=== PATIENT | female | born 1940 | race Caucasian/White ===

== ENCOUNTER 2017-11-25 18:04 | Observation (INO) ==
--- NOTE | 2017-11-25 18:53 | Emergency Department Report ---
Psych HPI - General Chief Complaint: Psychiatric Symptoms Stated Complaint: FEELING RAW Source: patient Mode of arrival: EMS Limitations: other (hyperverbal, paranoid) - History of Present Illness HPI Narrative: Pt presents with severe paranoia and hallucinations. PT repeatedly reports people are scanning her bedroom and that her son has a warrant and people are searching for him. Pt is unable to answer basic questions with appropriate answers. Nursing contacted son who states pt has been admitted to [facility] in the past but he does not know "what became of that". He denies her being on any medications and does not know if she has a DPOA. He states pt has been "bad " in regards to "mental" symptoms for the last 5-6 days. Son states everything the pt has been saying is a lie. She does report being outside all day to avoid lenore people trying to get her in the house and has a sunburn to face, arms and right leg Duration: getting worse Prior Hospitalization: Yes - Related Data Home Medications Medication Instructions Recorded Confirmed Vitamin E 400 unit PO DAILY 10/23/17 11/25/17 Allergies Allergy/AdvReac Type Severity Reaction Status Date / Time aspirin Allergy Verified 11/25/17 18:37 Sulfa (Sulfonamide Allergy Verified 11/25/17 18:37 Antibiotics) Review of Systems Limitations: ROS unobtainable due to patient's medical condition PFSH Patient Stated Medical History Other GI Yes: Fatty Liver Hx Incontinence Yes Surgical History: Appendectomy, ovarian cyst removal, tonsillectomy - Social History Smoking status: Current every day smoker Substance use type: does not use Alcohol intake frequency: does not drink Physical Exam - Limitations Limitations: other (paranoia) - General General appearance: alert - Normal Exams: Head:: Normocephalic without trauma Eyes:: Pupils are PERRLA w/ EOMI Chest/Respirations:: Clear all alexander, with good airflow Cardiovascular:: Regular rate and rhythm, without murmur or gallop Abdomen:: Bowel sounds positive, soft, non-tender, non-distended Musculoskeletal:: No tenderness, or deformity noted, good range of motion, all extremities Neurological:: Patient is alert, cranial nerves, motor/sensory/cerebellar, exams w/o gross deficits, to observation - Expanded Skin Exam Distribution: generalized (redness to face and upper extremities and right leg consistent with sunburn) - Expanded Psychiatric Exam Expanded psych exam: Present: poor eye contact, pressured speech, delusional, paranoid, auditory hallucinations, visual hallucinations Psych - MDM Narrative Medical decision making narrative: Pt not eligible for [facility] admit 2/2 lack of DPOA. Manuel Mars contacted and would be willing to admit if pt had DPOA as well. Pt is unable to report if she does have one at this time. She states she must have her phone as that is where all the evidence is to protect herself and her son. Attempts to contact her son have been unsuccessful. Hospitalist contacted for possible admit. Dr Phillips agrees to admit observation. - Differential Diagnosis Likely: acute psychosis, chronic schizophrenia, bipolar disorder, acute anxiety - Lab Data Attestation: I reviewed the patient's lab results. Result diagrams: 11/25/17 18:42 11/25/17 18:42 Disposition Clinical Impression: Acute psychosis Disposition: 02 To [facility] Condition: Stable Prescriptions: No Action Vitamin E 400 unit PO DAILY Referrals: Primary Care,You Choose [Primary Care Provider] - Time of Disposition: 22:46 - Seen By: midlevel
[2017-11-25] MEDS ORDERED: IBUPROFEN 400 MG TABLET PO PRN (23:50)
[2017-11-25] MEDS ORDERED: ACETAMINOPHEN 500 MG TABLET PO PRN (23:51)
[2017-11-25 23:56] VITALS: BMI 30.2
[2017-11-26] MEDS ORDERED: HALOPERIDOL 5 MG/ML INJECTION IVP PRN (00:03)
[2017-11-26] MEDS ORDERED: ONDANSETRON 4 MG/2 ML INJECTION IVP PRN (00:03)
--- NOTE | 2017-11-26 00:07 | History & Physical Report ---
History of Present Illness Date: 11/26/17 Chief complaint: people trying to get her and tell her things HPI: Patient was seen via telemedicine with nursing assistance on 11/25/2017 Ms. Randolph is a 77yo woman with h/o psychiatric disease NOS with the patient not a good historian. She was brought to the ED by her son who is now gone. Per ED staff son stated paranoia with auditory and visual hallucinations for a couple of days and then was outside all day to escape the voices in the house. She recognizes sunburn and no nausea or sob. No other complaints. Speech is clear but content tangential. Review of Systems All systems PM: 10-point ROS was reviewed, no additional remarkable complaints except Past Medical History Surgical History: Appendectomy, ovarian cyst removal, tonsillectomy Family History Updates: parents with no early CAD Family History: As Above - Social History Smoking status: Current every day smoker Substance use type: does not use Alcohol intake frequency: does not drink Medications Home Medications Medication Instructions Recorded Confirmed Type Vitamin E 400 unit PO DAILY 10/23/17 11/25/17 History Allergies Allergy/AdvReac Type Severity Reaction Status Date / Time aspirin Allergy Verified 11/25/17 18:37 Sulfa (Sulfonamide Allergy Verified 11/25/17 18:37 Antibiotics) Exam Vital Signs: Temperature 97.4 F 11/25/17 23:46 Pulse Rate 72 11/25/17 23:46 Respiratory Rate 18 11/25/17 23:46 Blood Pressure 159/80 H 11/25/17 23:46 Pulse Oximetry 95 11/25/17 23:46 Telemetry Rhythm: Sinus Rhythm Height/Weight/BMI: Height 1.6 m Weight 77.4 kg Body Mass Index 30.2 - Constitutional Present: no acute distress - Routine HEENT Exam Head: Present: normocephalic, atraumatic Eye: Present: EOMI - Routine Neck Exam Present: full ROM - Routine Respiratory Exam Present: CTA bilaterally. Absent: accessory muscle use, dyspnea - Routine Cardiovascular Exam Present: RRR, S1, S2, no murmur - Routine Abdominal Exam Present: soft, normoactive bowel sounds - Routine Extremities Exam Absent: cyanosis - Routine Skin Exam Comments: sunburned - Routine Neurological Exam Present: alert, oriented X3, CN II-XII intact - Routine Psychiatric Exam Present: auditory hallucinations, visual hallucinations Comments: pressured speech and tangential Results - Labs CBC & Chem 7: 11/25/17 18:42 11/25/17 18:42 Assessment and Plan (1) Auditory hallucinations Current visit: Yes Status: Acute (2) Visual hallucination Current visit: Yes Status: Acute (3) Acute psychosis Current visit: Yes Status: Acute Assessment and Plan: 1. Acute psychosis with underlying psychiatric disease NOS--obs admit for psych eval as son not available and patient therefore cannot be placed tonight. Prns and supportive care with ibuprofen for sunburn, encourage PO, etc. - Physician Narrative Narrative: Date: 11/26/17 Time: 0001 Hospital Course Summary Disclaimer: The visit summary below is not to be considered part of the above Progress Note.
[2017-11-26] MEDS ORDERED: LORazepam 1 MG TABLET PO PRN (00:12)
--- NOTE | 2017-11-26 09:55 | Neuropsychiatric Consult ---
[facility] Date: 11/26/17 Reason for Consultation: Psychosis Start Time: 11:00 Stop Time: 11:40 Care: >50% of this visit spent in counseling/coordination care. History of Present Illness: Patient is a 77-year-old female who was brought to the [facility] ED by family on 11/24 due to delusional thoughts impacting her functioning. Her son reported at that time that the patient had sat outside her house all day to escape the voices in the house, resulting in a sunburn. He also reported paranoia and AVH "for a couple of days." Patient has a past psychiatric hx with a previous hospitalization at [facility], though details or diagnosis are unclear. Patient says, "I'm anti-med" and endorses having taken only Valium in the past "for a medical condition." On interview, patient is lying in dark room with covers pulled to her chin. She initially speaks in whispers but engages as interview goes on. She is quite perseverative on the people at her house who are torturing her and has difficulty answering questions in a direct manner as she relates it back to feeling persecuted. Patient does not have any insight into paranoia/delusions and is upset with her son and ex- for not believing her that people are watching her house, their voices are coming through the [place], they are making fun of her, etc. She denies suicidality but says, "I understand how teenagers slit their wrists when you have people torturing you like that." She denies HI. Patient is not visibly responding to internal stimuli during interview. Offered inpatient psych stabilization and patient does not feel she has a psychiatric condition or that psychiatric medication would be helpful for her. Psychosis: Delusions, Disorganized speech, Disorganized behavior PFSH Patient Stated Medical History Other GI Yes: Fatty Liver Hx Incontinence Yes Surgical History: Appendectomy, ovarian cyst removal, tonsillectomy Family History Updates: parents with no early CAD - Social History Smoking status: Current every day smoker Substance use type: does not use Alcohol intake frequency: does not drink Housing: other (lives by herself) Review of Systems ROS unobtainable: due to mental status (limited as patient perseverates on delusional content) - Respiratory Respiratory Comments: Complains of pain in lung - Integumentary/Breasts Integumentary: Present: other (sunburn as per HPI) - Psychiatric Psychiatric: Present: as per HPI, abnormal sleep pattern (states she hasn't been sleeping recently), behavioral changes, difficulty concentrating, paranoia , other (cannot rule out AVH). Absent: homicidal ideation Mental Status Exam Vitals: Last Vital Signs Temp 97.1 F 11/26/17 08:00 Pulse 83 11/26/17 08:00 Resp 16 11/26/17 08:00 BP 140/69 H 11/26/17 08:00 Pulse Ox 96 11/26/17 08:00 Height: 1.6 m Weight: 77.1 kg - Mental Status Exam Muscle Strength/Tone: Weak Dressing: Casual Grooming: Disheveled Attitude: Defensive Motor Activity: Normal Eye Contact: Other (Limited) Speech: Normal Volume: Soft Rhythm: Appropriate Rhythm Sensory: Alert Orientation: Oriented to person, Oriented to place Mood: Anxious, Fearful Affect: Fearful Rate of Thoughts: Pressured Thought Organization: Disorganized, Perseverations (on delusional thoughts) Associations: Illogical Abstract Reasoning: Poor abstract reasoning Thought Content: Ruminations, Hopelessness, Helplessness, Paranoia, Somatic Concerns Perception/Psychotic: Psychotic (delusions present, cannot r/o AVH) Language: Naming Intact Fund of Knowledge: Enrique aware current events Memory: Other (difficult to fully assess, suspect some memory impairment) Suicidal Ideation: Other (denies though makes morbid statement as per HPI) Homicidal Ideation: Denies Insight: Impaired Judgement: Impaired - Laboratory Result Diagrams: 11/25/17 18:42 11/25/17 18:42 Laboratory Results - last 24 hr 11/26/17 08:51 Urine Opiates Screen Negative Ur Oxycodone Screen Negative Urine Methadone Screen Negative Ur Propoxyphene Screen Negative Ur Barbiturates Screen Negative U Tricyclic Antidepress Negative Ur Phencyclidine Scrn Negative Ur Amphetamines Screen Negative U Methamphetamines Scrn Negative U Benzodiazepines Scrn Negative Urine Cocaine Screen Negative U Cannabinoids Screen Negative Assessment and Plan (1) Psychosis Qualifiers: Psychosis type: unspecified psychosis type Qualified Code(s): F29 - Unspecified psychosis not due to a substance or known physiological condition Current visit: Yes Status: Acute suspect schizophreniform disorder r/o underlying neurocognitive disorder Patient is a danger to self given paranoid delusions and requires inpatient psychiatric stabilization. Do not let patient leave AMA; file emergency court hold if patient attempts to leave. Attempted to discuss possibility of naming DPOA with patient and she was unable to name any reasonable support. She is ambiguous re: psych hospitalization and adamantly anti-medication. Hospital will likely need to file MHP as she will necessitate involuntary psychiatric care, unless she can name a reasonable DPOA in the interim. Discussed with case management as well as primary team. Please contact me with further questions.
[2017-11-26 12:43] VITALS: TEMP 97.6
--- NOTE | 2017-11-26 13:11 | History & Physical Report ---
History of Present Illness Date: 11/26/17 HPI: Pt admitted per telemedicine physician 11/25. Pt was brought to the hospital after being found outside in the sun, having walked away from her house due to being afraid of what voices were saying to her. She developed a subsequent sunburn. She was brought in by her son. She speaks very tangentially, and I had difficulty getting an accurate summary of what exactly transpired before coming here. However, she was having visual and auditory hallucinations, and hearing a bird in the room currently which she is very concerned about. These have been going on for a couple days. Today she has no further specific complaints, including no N/V/F/C/CP/SOB/abd pain. However, she does point to a large area including her right chest and right abdomen, stating "something is not right in here". Review of Systems All systems PM: 10-point ROS was reviewed, no additional remarkable complaints except - Constitutional Constitutional: Absent: chills, fatigue, fever(s) - EENMT Eyes: Absent: change in vision, diplopia, pain Ears: Absent: ear pain Mouth/Throat: Absent: sore throat - Cardiovascular Cardiovascular: Absent: chest pain, palpitations, syncope, edema Vascular: Absent: pedal edema - Respiratory Respiratory: Absent: cough, dyspnea, wheezing - Gastrointestinal Gastrointestinal: Absent: abdominal pain, diarrhea, hematochezia, melena, nausea , vomiting - Genitourinary Genitourinary: Absent: dysuria, flank pain - Musculoskeletal Musculoskeletal: Absent: arthralgias, limited range of motion, myalgias - Integumentary/Breasts Integumentary: Absent: lesions, rash, jaundice - Neurological Neurological: Absent: abnormal speech, dizziness - Psychiatric Psychiatric: Present: auditory hallucinations, paranoia, visual hallucinations. Absent: depression - Endocrine Endocrine: Absent: palpitations, polyuria - Allergic/Immunologic Allergic/Immunologic: Absent: tongue swelling, throat swelling Past Medical History Medical History Updates: NAFLD Surgical History: Appendectomy, ovarian cyst removal, tonsillectomy Family History: As Above - Social History Smoking status: Current every day smoker (Smoked about 1ppd, unable to tell me for how long.) Substance use type: does not use Alcohol intake frequency: does not drink Does patient use chewing tobacco?: No Medications Home Medications Medication Instructions Recorded Confirmed Type Vitamin E 400 unit PO DAILY 10/23/17 11/25/17 History Allergies Allergy/AdvReac Type Severity Reaction Status Date / Time aspirin Allergy Verified 11/25/17 18:37 Sulfa (Sulfonamide Allergy Verified 11/25/17 18:37 Antibiotics) Exam Vital Signs: Temperature 97.6 F 11/26/17 12:00 Pulse Rate 71 11/26/17 12:00 Respiratory Rate 18 11/26/17 12:00 Blood Pressure 153/69 H 11/26/17 12:00 Pulse Oximetry 95 11/26/17 12:00 Height/Weight/BMI: Height 5 ft 3 in Weight 77.1 kg Body Mass Index 30.2 - Constitutional Present: no acute distress, other (Very tangential in her answers.) - Routine HEENT Exam Head: Present: normocephalic, atraumatic Eye: Present: EOMI, PERRL ENT: Present: mucous membranes moist, oropharynx clear, external ear normal - Routine Neck Exam Present: supple. Absent: lymphadenopathy - Routine Respiratory Exam Present: CTA bilaterally. Absent: wheezes, crackles - Routine Cardiovascular Exam Present: RRR. Absent: murmur, gallop, rubs - Routine Abdominal Exam Present: soft, normoactive bowel sounds, non distended, non tender. Absent: organomegaly - Routine Extremities Exam Present: full ROM, normal capillary refill. Absent: cyanosis, edema - Routine Skin Exam Present: intact, dry. Absent: jaundice, rash - Routine Neurological Exam Present: alert, CN II-XII intact, moving all extremities (5/5 strength in all extremities). Absent: altered mental status - Routine Psychiatric Exam Present: auditory hallucinations (Hearing voices, currently hearing a bird. ), visual hallucinations, paranoid. Absent: normal affect (Very tangential. Currently speech is not very pressured. ), suicidal ideation, homicidal ideation , depressed, anxious Results - Labs CBC & Chem 7: 11/25/17 18:42 11/25/17 18:42 Assessment and Plan (1) Acute psychosis Current visit: Yes Status: Acute (2) Auditory hallucinations Current visit: Yes Status: Acute (3) Visual hallucination Current visit: Yes Status: Acute Assessment and Plan: 1. Acute psychosis with underlying psychiatric disease NOS--obs admit for psych eval as son not available and patient therefore cannot be placed tonight. Prns and supportive care with ibuprofen for sunburn, encourage PO, etc. DVT Prophylaxis: other (Pt ambulatory, in obs. None indicated. ) GI Prophylaxis: other (None indicated. ) Resuscitation Status: Full Code - Time spent with patient Time with patient PN: 25 minutes - Physician Narrative Physician: mk Narrative: Date: 11/26/17 Time: 1306 77yo female with: Acute psychosis: Per prior documentation, pt has underlying psychiatric disease , NOS. Concern for underlying schizophrenia- consulted Dr. Hercules for further input. Unfortunately, pt is fairly adamant about being anti-medication, and thus we are unable to start any anti-psychotics. Per psych, cannot allow pt to leave AMA, and file emergency court hold if pt attempts to leave. Hospital may need to file MPH, given her need for psych care, unless she can name a DPOA. Hx NAFLD: Will add LFTs to blood in lab to assess for transaminitis. FEN: Gen diet. Proph: Pt ambulatory, none indicated. Dispo: Currently pt has no DPOA. May not leave hospital involuntarily as she is a danger to herself at this point. Hospital Course Summary Disclaimer: The visit summary below is not to be considered part of the above Progress Note. Hospital Course: Admitted with psychosis and since she is a danger to herself in her current state, unable to leave hospital voluntarily. Consulted Dr. Hercules, appreciate recs.
[2017-11-26 15:50] VITALS: BP 126/53; PULSE 62; RESP 20; O2SAT 94
== END 2017-11-26 16:47 ==
LOC: EDHOLD 18:04 → ED 18:04 → MED 23:05
PROVIDERS: ADMIT Hospitalist; ATTEND Internal Medicine

== ENCOUNTER 2017-11-26 16:50 | Inpatient (IN) ==
[2017-11-26] MEDS ORDERED: IBUPROFEN 400 MG TABLET PO PRN (18:51)
[2017-11-26] MEDS ORDERED: LORazepam 1 MG TABLET PO PRN (18:51)
[2017-11-26] MEDS ORDERED: HALOPERIDOL 5 MG/ML INJECTION IM PRN (19:00)
[2017-11-26] MEDS ORDERED: HALOPERIDOL 0.5 MG TABLET PO PRN (19:00)
[2017-11-26] MEDS ORDERED: LORazepam 0.5 MG TABLET PO PRN (19:00)
[2017-11-26] MEDS ORDERED: ACETAMINOPHEN 500 MG TABLET PO PRN (19:08)
[2017-11-26] MEDS ORDERED: IBUPROFEN 200 MG TABLET PO PRN (19:15)
[2017-11-26 19:25] VITALS: BMI 30.3
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
--- NOTE | 2017-11-27 09:33 | History & Physical Report ---
History of Present Illness Date: 11/27/17 Chief complaint: Acute psychosis HPI: Patient is a 77-year-old female who was recently admitted acutely to the hospitalist services in 11/25/17 or evaluation of paranoia. Records are reviewed, EMS report from 11/25 was reviewed. Records reports patient called 911 multiple times on 11/25/17. She was evaluated by police officers on multiple occasions. They were concerned that patient had abnormal behavior contacted EMS for medical evaluation as it appeared patient had been outside in the sun extensively. Patient was brought to [facility] emergency room for acute evaluation. she was admitted to the hospitalist services initially and medically cleared. Given her significant psychosis with paranoia and delusions, It was felt that patient required involuntary inpatient care for further evaluation and treatment. Patient was accepted to the [facility] unit and was transferred there yesterday on 11/26/17. It does not appear the patient has a primary care provider however she has been seen at [facility] in the past. EMS record reports she has a hx of "ovarian or uterine cancer". Unable to get an accurate history from patient. Patient is seen this morning for initial medical consultation by the hospitalist services. She is alert sitting on the edge of bed following shower. She states "hello, Are you real, Can I pinch you?" . Patient denies having any pain, she states that she is "numb". She here to have a mild sunburn to her lateral arms. Right lower extremity is noted to be somewhat discolored, which appears to be chronic. Patient continues to speak of "what happened over there, " is unclear if she is referring to home or acute stay at [facility]. That she continues to have people around her and she doesn't know if they're real or not. Review of Systems ROS unobtainable: due to mental status Past Medical History Medical History Updates: NAFLD. Reported by EMS- "Ovarian/Uterine Cancer"- unknown if this is accurate Surgical History: Appendectomy. ovarian cyst removal. tonsillectomy Family History: Unable to Obtain - Social History Smoking status: Current every day smoker Substance use type: does not use Alcohol intake frequency: does not drink Housing: apartment Social history: Resides independently in [place]. It is unknown if patient has a primary care provider. Son- Marino Pérez Medications Home Medications Medication Instructions Recorded Confirmed Type Vitamin E 400 unit PO DAILY 10/23/17 11/26/17 History Acetaminophen [Tylenol] 500 mg PO Q5H PRN tab 11/26/17 11/26/17 Rx Ibuprofen [Motrin] 400 mg PO Q4H PRN tab 11/26/17 11/26/17 Rx LORazepam [Ativan] 1 mg PO Q6H PRN tab 11/26/17 11/26/17 Rx Ondansetron Inj [Zofran] 4 mg IVP Q6H PRN vial 11/26/17 11/26/17 Rx Allergies Allergy/AdvReac Type Severity Reaction Status Date / Time aspirin Allergy Verified 11/25/17 18:37 Sulfa (Sulfonamide Allergy Verified 11/25/17 18:37 Antibiotics) Exam Vital Signs: Temperature 97.0 F 11/26/17 20:32 Pulse Rate 75 11/26/17 21:58 Respiratory Rate 20 11/26/17 21:58 Blood Pressure 133/85 11/26/17 20:32 Pulse Oximetry 99 11/26/17 21:58 Height/Weight/BMI: Height 1.6 m Weight 77.6 kg Body Mass Index 30.3 - Constitutional Present: no acute distress, well nourished, well developed - Routine HEENT Exam Eye: Present: EOMI ENT: Present: mucous membranes moist, dentition normal - Routine Respiratory Exam Present: CTA bilaterally. Absent: wheezes - Routine Cardiovascular Exam Present: RRR, S1, S2. Absent: murmur - Routine Abdominal Exam Present: soft, normoactive bowel sounds, non distended. Absent: tenderness - Routine Extremities Exam Present: full ROM, pulses intact Comments: RLE- chronic discolored. Trace bilateral lower ext edema - Routine Skin Exam Present: dry, warm - Routine Neurological Exam Present: alert, oriented X3, CN II-XII intact - Routine Psychiatric Exam Present: normal affect Assessment and Plan (1) Acute psychosis Current visit: No Status: Acute Assessment and Plan: Impression Psychosis Paranoia NAFLD Tobacco dependence Low normal vitamin B12 level Obesity with BMI 30.3 Plan Agree with involuntary psychiatric admission under the care of Dr. Hecrules for further evaluation and treatment Medical labs from acute stay evaluated and stable. All unremarkable May want to consider CT of brain to rule out underline intracranial disease process Monitor vital signs Tylenol as needed for pain May use lotion topically to sunburn Encourage patient to participate in unit activities and provide a safe environment It does not appear that patient has a PCP. CM and environmental field services technician involved. They have filed petition to [facility] Attorney's Office for involuntary tx. Petition Resuscitation Status: Full Code - Time spent with patient Time with patient PN: 50 minutes - Physician Narrative Physician: Howard Pinedo MD Narrative: Date: 11/27/17 Time: 1939 Have independently interviewed & examined pt. Chart reviewed. Case discussed with my CHANNELING MACHINE OPERATOR. Above care plan developed with my supervision; agree with above. Admitted to [facility] secondary to psychosis and paranoia. Reports she has been 'scanned' in her home. People there are conspiring to make her crazy. Reports is being watched at home and not allowed to leave. Disorganization to thought, but very clear about being scanned. Obtaining accurate ROS from patient is not possible secondary psychosis. Lungs: decreased, no distress CV: regular EXT: +2 edema Plan: Agree with admission of patient to [facility] [place] for inpatient psychiatric treatment. Provide safe supportive environment. Will start oral B12 due to low normal B12 level (worry patient would be resistant to having IM shots ). Psychiatry to manage and adjust psychoactive medications. Medically stable for [facility] floor activity. Hospital Course Summary Disclaimer: The visit summary below is not to be considered part of the above Progress Note. Hospital Course: Impression Psychosis Paranoia NAFLD Tobacco dependence Plan Agree with involuntary psychiatric admission under the care of Dr. Hercules for further evaluation and treatment Medical labs from acute stay evaluated and stable. All unremarkable May want to consider CT of brain to rule out underline intracranial disease process Monitor vital signs Tylenol as needed for pain May use lotion topically to sunburn Encourage patient to participate in unit activities and provide a safe environment It does not appear that patient has a PCP. CM and environmental field services technician involved. They have filed petition to [facility] Attorney's Office for involuntary tx. Petition
--- NOTE | 2017-11-27 11:00 | CT Scan Report ---
Indication: Psychosis PROCEDURE: CT head/brain wo con: Encounter: Initial Comparison: None Technique: Axial CT images through the head were performed without contrast. Iterative Reconstruction dose reducing technique was utilized. FINDINGS: Moderate atrophy. The ventricles are of normal size, shape, and contour for the patient's age. There are scattered areas of low attenuation in the white matter which most likely represent changes from chronic microvascular ischemia. The brainstem, cerebellum, and cerebral hemispheres otherwise have a normal morphology and CT attenuation. There is no evidence of midline displacement. No hemorrhage, signs of acute territorial stroke, mass effect, mass lesions, or edema is evident. The visualized portions of the skull base, midface, and calvarium demonstrate no abnormality. The paranasal sinuses are well aerated and free of significant disease. The tympanic and mastoid cavities appear normal. IMPRESSION: No acute intracranial abnormality or hemorrhage. .
[2017-11-28] MEDS: CYANOCOBALAMIN (B-12) 500mcg TABLET PO SCH (08:32)
--- NOTE | 2017-11-28 12:03 | Neuropsych Progress Note ---
[facility] Subjective Date: 11/28/17 - Sujective/Severity of Illness Medications: Acetaminophen (Tylenol) 500 mg PO Q5H PRN PRN Reason: Discomfort Cyanocobalamin (Vit. B-12) 1,000 mcg PO DAILY SALOME Last Admin: 11/28/17 08:32 Dose: 1,000 mcg Haloperidol (Haldol) 0.5 mg PO Q6H PRN PRN Reason: Extreme agitation Haloperidol Lactate (Haldol) 0.5 mg IM Q6H PRN PRN Reason: Extreme agitation Ibuprofen (Motrin) 400 mg PO Q4H PRN PRN Reason: Pain Lorazepam (Ativan) 1 mg PO Q6H PRN Lorazepam (Ativan) 0.5 mg PO Q6H PRN PRN Reason: Extreme agitation Lorazepam (Ativan Inj) 0.5 mg IM Q6H PRN PRN Reason: Extreme agitation Subjective: Pt seen and chart examined. Nursing reports pt is doing fairly well. Sleeping well and has a good appetite. On face to face the pt remains delusional and grandiose but is pleasant and cooperative. She does have some insight that she needs to be here but does not want to take meds. Denies any S/I. Tolerating meds Start Time: 10:15 Stop Time: 10:30 Mental Status Exam Vitals: Last Vital Signs Temp 97.0 F 11/28/17 07:37 Pulse 77 11/28/17 07:37 Resp 20 11/28/17 07:37 BP 134/66 11/28/17 07:37 Pulse Ox 94 11/28/17 07:37 Height: 1.6 m Weight: 77.6 kg - Mental Status Exam Muscle Strength/Tone: Normal Dressing: Eccentric Grooming: Disheveled Attitude: Cooperative Motor Activity: Normal Eye Contact: Good Speech: Rapid, Pressured Volume: Normal Rhythm: Appropriate Rhythm Orientation: Oriented X4 Mood: Fearful Rate of Thoughts: Pressured Thought Organization: Disorganized, Perseverations Associations: Flight of Ideas, Illogical Abstract Reasoning: Intact, able to abstract Computation: Intact Thought Content: Delusions, Ruminations, Helplessness, Paranoia, Grandeur, Hyper -religiosity Perception/Psychotic: Psychotic Current Hallucinations: Visual, Auditory, Command (not to harm others but to get out of apartment) Fund of Knowledge: Enrique aware current events Memory: Other (Unclear whether there may be deficits) Suicidal Ideation: Denies Homicidal Ideation: Denies Insight: Impaired Judgement: Impaired Impulse Control: Fair Assessment and Plan (1) Bipolar 1 disorder, mixed, severe Problem details: with psychotic features Current visit: Yes Status: Acute Hospital Course Summary Disclaimer: The visit summary below is not to be considered part of the above Progress Note. Hospital Course: Impression Psychosis Paranoia NAFLD Tobacco dependence Plan Agree with involuntary psychiatric admission under the care of Dr. Hercules for further evaluation and treatment Medical labs from acute stay evaluated and stable. All unremarkable May want to consider CT of brain to rule out underline intracranial disease process Monitor vital signs Tylenol as needed for pain May use lotion topically to sunburn Encourage patient to participate in unit activities and provide a safe environment It does not appear that patient has a PCP. CM and information services vice president involved. They have filed petition to [facility] Attorney's Office for involuntary tx. Petition 11/28/17 psych note- Pt refusing meds but no behaviors. Continue current care
[2017-11-29] MEDS: CYANOCOBALAMIN (B-12) 500mcg TABLET PO SCH (08:11)
--- NOTE | 2017-11-29 10:45 | Neuropsych Progress Note ---
[facility] Subjective Date: 11/29/17 - Sujective/Severity of Illness Medications: Acetaminophen (Tylenol) 500 mg PO Q5H PRN PRN Reason: Discomfort Cyanocobalamin (Vit. B-12) 1,000 mcg PO DAILY SALOME Last Admin: 11/29/17 08:11 Dose: 1,000 mcg Haloperidol (Haldol) 0.5 mg PO Q6H PRN PRN Reason: Extreme agitation Last Admin: 11/28/17 12:08 Dose: 0.5 mg Haloperidol Lactate (Haldol) 0.5 mg IM Q6H PRN PRN Reason: Extreme agitation Ibuprofen (Motrin) 400 mg PO Q4H PRN PRN Reason: Pain Lorazepam (Ativan) 1 mg PO Q6H PRN Lorazepam (Ativan) 0.5 mg PO Q6H PRN PRN Reason: Extreme agitation Lorazepam (Ativan Inj) 0.5 mg IM Q6H PRN PRN Reason: Extreme agitation Nicotine (Nicoderm) 14 mg TD DAILY SALOME Nicotine (Nicotine Patch Removal) 1 removal TD DAILY SALOME Subjective: Pt seen and chart examined. Nursing reports pt is doing fairly well. Sleeping well and has a good appetite. Remains paranoid and delusional. Was talking to staff that she believes she is going to senior care. On face to face the pt is pleasant and cooperative. She reports she needs a "good trade clerk". She reports her mood is stable. Staff reports she continues to appear to be responding to internal stimuli Start Time: 09:45 Stop Time: 10:00 Mental Status Exam Vitals: Last Vital Signs Temp 97 F 11/29/17 08:37 Pulse 70 11/29/17 08:37 Resp 18 11/29/17 08:37 BP 148/71 H 11/29/17 08:37 Pulse Ox 95 11/29/17 08:37 Height: 1.6 m Weight: 77.6 kg - Mental Status Exam Muscle Strength/Tone: Normal Dressing: Eccentric Grooming: Disheveled Attitude: Cooperative Motor Activity: Normal Eye Contact: Good Speech: Rapid, Pressured Volume: Normal Rhythm: Appropriate Rhythm Orientation: Oriented X4 Mood: Fearful Rate of Thoughts: Pressured Thought Organization: Disorganized, Perseverations Associations: Flight of Ideas, Illogical Abstract Reasoning: Intact, able to abstract Computation: Intact Thought Content: Delusions, Ruminations, Helplessness, Paranoia, Grandeur, Hyper -religiosity Perception/Psychotic: Psychotic Current Hallucinations: Visual, Auditory, Command (not to harm others but to get out of apartment) Fund of Knowledge: Enrique aware current events Memory: Other (Unclear whether there may be deficits) Suicidal Ideation: Denies Homicidal Ideation: Denies Insight: Impaired Judgement: Impaired Impulse Control: Fair Assessment and Plan (1) Bipolar 1 disorder, mixed, severe Problem details: with psychotic features Current visit: Yes Status: Acute Hospital Course Summary Disclaimer: The visit summary below is not to be considered part of the above Progress Note. Hospital Course: Impression Psychosis Paranoia NAFLD Tobacco dependence Plan Agree with involuntary psychiatric admission under the care of Dr. Hercules for further evaluation and treatment Medical labs from acute stay evaluated and stable. All unremarkable May want to consider CT of brain to rule out underline intracranial disease process Monitor vital signs Tylenol as needed for pain May use lotion topically to sunburn Encourage patient to participate in unit activities and provide a safe environment It does not appear that patient has a PCP. CM and visitor services information assistant involved. They have filed petition to [facility] Attorney's Office for involuntary tx. Petition 11/28/17 psych note- Pt refusing meds but no behaviors. Continue current care 11/29/17 Psych note- Pt remains paranoid and delusional. Continue current care
[2017-11-29] MEDS: NICOTINE 14 MG PATCH TD SCH (12:09)
[2017-11-30] MEDS: CYANOCOBALAMIN (B-12) 500mcg TABLET PO SCH (08:09)
[2017-11-30] MEDS: NICOTINE PATCH REMOVAL TD SCH (08:09)
--- NOTE | 2017-11-30 10:34 | Neuropsych Progress Note ---
Generations Subjective Date: 11/30/17 - Sujective/Severity of Illness Medications: Acetaminophen (Tylenol) 500 mg PO Q5H PRN PRN Reason: Discomfort Cyanocobalamin (Vit. B-12) 1,000 mcg PO DAILY [facility] Last Admin: 11/30/17 08:09 Dose: 1,000 mcg Haloperidol (Haldol) 0.5 mg PO Q6H PRN PRN Reason: Extreme agitation Last Admin: 11/28/17 12:08 Dose: 0.5 mg Haloperidol Lactate (Haldol) 0.5 mg IM Q6H PRN PRN Reason: Extreme agitation Ibuprofen (Motrin) 400 mg PO Q4H PRN PRN Reason: Pain Lorazepam (Ativan) 1 mg PO Q6H PRN Lorazepam (Ativan) 0.5 mg PO Q6H PRN PRN Reason: Extreme agitation Lorazepam (Ativan Inj) 0.5 mg IM Q6H PRN PRN Reason: Extreme agitation Nicotine (Nicoderm) 14 mg TD DAILY [facility] Last Admin: 11/29/17 12:09 Dose: 14 mg Nicotine (Nicotine Patch Removal) 1 removal TD DAILY [facility] Last Admin: 11/30/17 08:09 Dose: 1 removal Subjective: Patient seen and chart reviewed. Case discussed with treatment team. On interview, patient is pleasant. Court was held this AM and patient did not contest psychiatric treatment. She continues to be delusional and feel that others are torturing her emotionally. She has some somatic delusions in regards to her health. Patient denies any SI, HI. She continues to have frequent AVH. Nursing staff report patient has not had any significant behavioral difficulties on the unit outside of psychotic symptoms. Patient slept only 4.75 hours overnight as she was awake with AVH through night. VSS. Patient is eating well. Psychotropic PRNs required in the past 24 hours: none. Discussed diagnosis of bipolar disorder and patient accepts to trial of Zyprexa. Start Time: 09:00 Stop Time: 09:20 Mental Status Exam Vitals: Last Vital Signs Temp 97.2 F 11/30/17 08:00 Pulse 79 11/30/17 08:00 Resp 18 11/30/17 08:00 BP 160/67 H 11/30/17 08:00 Pulse Ox 93 11/30/17 08:00 Height: 1.6 m Weight: 77.6 kg - Mental Status Exam Muscle Strength/Tone: Normal Dressing: Eccentric Grooming: Disheveled Attitude: Cooperative Motor Activity: Retardation Eye Contact: Good Speech: Normal Volume: Soft Rhythm: Mumbled Sensory: Alert Orientation: Oriented X4 Mood: Fearful Affect: Sad, Anxious Rate of Thoughts: Pressured Thought Organization: Disorganized, Perseverations Associations: Flight of Ideas, Illogical Abstract Reasoning: Intact, able to abstract Computation: Intact Thought Content: Delusions, Ruminations, Helplessness, Paranoia, Grandeur, Hyper -religiosity Perception/Psychotic: Psychotic Current Hallucinations: Visual, Auditory, Command Fund of Knowledge: Enrique aware current events Memory: Other (suspect deficits) Suicidal Ideation: Denies Homicidal Ideation: Denies Insight: Impaired Judgement: Impaired Impulse Control: Fair - Laboratory Result Diagrams: 11/30/17 07:00 Laboratory Results - last 24 hr 11/30/17 07:00 Turbidity < 20 Sodium 140 Potassium 4.1 Chloride 103 Carbon Dioxide 27 Anion Gap 10 BUN 10.0 Creatinine 0.6 L GFR Calculation 97 BUN/Creatinine Ratio 17 Glucose 110 Calculated Osmolality 269 Calcium 9.6 Icterus Index < 2 Specimen Hemolysis 16 Assessment and Plan (1) Bipolar 1 disorder, mixed, severe Problem details: with psychotic features r/o MNCD Current visit: Yes Status: Acute Patient court-ordered for psychiatric treatment and she agrees to trial of Zyprexa Zydis 5mg PO q HS to start tonight. Hospital Course Summary Disclaimer: The visit summary below is not to be considered part of the above Progress Note. Hospital Course: Impression Psychosis Paranoia NAFLD Tobacco dependence Plan Agree with involuntary psychiatric admission under the care of Dr. Hercules for further evaluation and treatment Medical labs from acute stay evaluated and stable. All unremarkable May want to consider CT of brain to rule out underline intracranial disease process Monitor vital signs Tylenol as needed for pain May use lotion topically to sunburn Encourage patient to participate in unit activities and provide a safe environment It does not appear that patient has a PCP. CM and visitor services associate involved. They have filed petition to [facility] Attorney's Office for involuntary tx. Petition 11/28/17 psych note- Pt refusing meds but no behaviors. Continue current care 11/29/17 Psych note- Pt remains paranoid and delusional. Continue current care. 11/30/17 Psych: Patient court-ordered for psychiatric treatment and she agrees to trial of Zyprexa Zydis 5mg PO q HS to start tonight.
[2017-11-30] MEDS: NICOTINE 14 MG PATCH TD SCH (14:34)
[2017-11-30] MEDS: OLANZapine ODT 5 MG TABLET PO SCH (20:11)
--- NOTE | 2017-12-01 08:23 | Neuropsych Progress Note ---
Generations Subjective Date: 12/01/17 - Sujective/Severity of Illness Medications: Acetaminophen (Tylenol) 500 mg PO Q5H PRN PRN Reason: Discomfort Cyanocobalamin (Vit. B-12) 1,000 mcg PO DAILY [facility] Last Admin: 11/30/17 08:09 Dose: 1,000 mcg Haloperidol (Haldol) 0.5 mg PO Q6H PRN PRN Reason: Extreme agitation Last Admin: 11/28/17 12:08 Dose: 0.5 mg Haloperidol Lactate (Haldol) 0.5 mg IM Q6H PRN PRN Reason: Extreme agitation Ibuprofen (Motrin) 400 mg PO Q4H PRN PRN Reason: Pain Lorazepam (Ativan) 1 mg PO Q6H PRN Lorazepam (Ativan) 0.5 mg PO Q6H PRN PRN Reason: Extreme agitation Last Admin: 11/30/17 16:12 Dose: 0.5 mg Lorazepam (Ativan Inj) 0.5 mg IM Q6H PRN PRN Reason: Extreme agitation Nicotine (Nicoderm) 14 mg TD DAILY [facility] Last Admin: 11/30/17 14:34 Dose: Not Given Nicotine (Nicotine Patch Removal) 1 removal TD DAILY [facility] Last Admin: 11/30/17 08:09 Dose: 1 removal Olanzapine (Zyprexa Zydis) 5 mg PO HS [facility] Last Admin: 11/30/17 20:11 Dose: 5 mg Subjective: Patient seen and chart reviewed. Case discussed with treatment team. On interview, patient states she is "upset by what they're doing from her apartment", that they are talking about how she wipes after using the restroom and saying "Thao is crazy" over and over. She continues to be hyperreligious and hypertalkative. She was adherent with Zyprexa last night but then complained of dizziness to nursing staff and said she didn't want to take that medication anymore. When discussed with her this morning, she does prefer to continue taking this medication rather than trying another. Patient denies any SI, HI. She continues to have frequent AVH. Nursing staff report patient continues to exhibit signs of psychosis and has been hypertalkative, but has not had any significant problematic behaviors on the unit. Patient slept 8.25 hours overnight. VSS. Patient is eating well. Psychotropic PRNs required in the past 24 hours: none. Start Time: 10:00 Stop Time: 10:20 Mental Status Exam Vitals: Last Vital Signs Temp 97.4 F 11/30/17 20:02 Pulse 76 11/30/17 20:02 Resp 20 11/30/17 20:02 BP 149/63 H 11/30/17 20:02 Pulse Ox 93 11/30/17 20:02 Height: 1.6 m Weight: 77.6 kg - Mental Status Exam Muscle Strength/Tone: Normal Dressing: Eccentric Grooming: Disheveled Attitude: Cooperative Motor Activity: Retardation Eye Contact: Good Speech: Pressured Volume: Soft Rhythm: Appropriate Rhythm Orientation: Oriented X4 Mood: Anxious, Fearful Affect: Sad, Manic Rate of Thoughts: Pressured Thought Organization: Disorganized, Perseverations Associations: Flight of Ideas, Illogical Abstract Reasoning: Intact, able to abstract Computation: Intact Thought Content: Delusions, Ruminations, Helplessness, Paranoia, Grandeur, Hyper -religiosity Perception/Psychotic: Psychotic Current Hallucinations: Visual, Auditory, Command Fund of Knowledge: Enrique aware current events Memory: Other (suspect deficits) Suicidal Ideation: Denies Homicidal Ideation: Denies Insight: Impaired Judgement: Impaired Impulse Control: Fair - Laboratory Result Diagrams: 11/30/17 07:00 Assessment and Plan (1) Bipolar 1 disorder, mixed, severe Problem details: with psychotic features r/o MNCD Current visit: Yes Status: Acute Continue Zyprexa Zydis 5mg PO q HS -- patient prefers to take this medication rather than try another antipsychotic. If she tolerates it will likely start additional mood stabilizer on 12/02. Hospital Course Summary Disclaimer: The visit summary below is not to be considered part of the above Progress Note. Hospital Course: Impression Psychosis Paranoia NAFLD Tobacco dependence Plan Agree with involuntary psychiatric admission under the care of Dr. Hercules for further evaluation and treatment Medical labs from acute stay evaluated and stable. All unremarkable May want to consider CT of brain to rule out underline intracranial disease process Monitor vital signs Tylenol as needed for pain May use lotion topically to sunburn Encourage patient to participate in unit activities and provide a safe environment It does not appear that patient has a PCP. CM and social human services assistants involved. They have filed petition to [facility] Attorney's Office for involuntary tx. Petition 11/28/17 psych note- Pt refusing meds but no behaviors. Continue current care 11/29/17 Psych note- Pt remains paranoid and delusional. Continue current care. 11/30/17 Psych: Patient court-ordered for psychiatric treatment and she agrees to trial of Zyprexa Zydis 5mg PO q HS to start tonight. 12/01/17 Psych: Continue Zyprexa Zydis 5mg PO q HS -- patient prefers to take this medication rather than try another antipsychotic. If she tolerates it will likely start additional mood stabilizer on 12/02.
[2017-12-01] MEDS: NICOTINE 14 MG PATCH TD SCH (08:45)
[2017-12-01] MEDS: CYANOCOBALAMIN (B-12) 500mcg TABLET PO SCH (08:45)
[2017-12-01] MEDS: NICOTINE PATCH REMOVAL TD SCH (08:45)
[2017-12-01] MEDS: OLANZapine ODT 5 MG TABLET PO SCH (20:00)
[2017-12-02] MEDS: CYANOCOBALAMIN (B-12) 500mcg TABLET PO SCH (09:02)
[2017-12-02] MEDS: NICOTINE PATCH REMOVAL TD SCH (09:04)
[2017-12-02] MEDS: NICOTINE 14 MG PATCH TD SCH (13:30)
--- NOTE | 2017-12-02 14:49 | Neuropsych Progress Note ---
Generations Subjective Date: 12/03/17 - Sujective/Severity of Illness Medications: Acetaminophen (Tylenol) 500 mg PO Q5H PRN PRN Reason: Discomfort Cyanocobalamin (Vit. B-12) 1,000 mcg PO DAILY [facility] Last Admin: 12/02/17 09:02 Dose: 1,000 mcg Haloperidol (Haldol) 0.5 mg PO Q6H PRN PRN Reason: Extreme agitation Last Admin: 11/28/17 12:08 Dose: 0.5 mg Haloperidol Lactate (Haldol) 0.5 mg IM Q6H PRN PRN Reason: Extreme agitation Ibuprofen (Motrin) 400 mg PO Q4H PRN PRN Reason: Pain Lorazepam (Ativan) 1 mg PO Q6H PRN Lorazepam (Ativan) 0.5 mg PO Q6H PRN PRN Reason: Extreme agitation Last Admin: 11/30/17 16:12 Dose: 0.5 mg Lorazepam (Ativan Inj) 0.5 mg IM Q6H PRN PRN Reason: Extreme agitation Nicotine (Nicoderm) 14 mg TD DAILY [facility] Last Admin: 12/02/17 13:30 Dose: Not Given Nicotine (Nicotine Patch Removal) 1 removal TD DAILY [facility] Last Admin: 12/02/17 09:04 Dose: 1 removal Olanzapine (Zyprexa Zydis) 5 mg PO HS [facility] Last Admin: 12/01/17 20:00 Dose: 5 mg Vitamin E (Vitamin E) 400 unit PO DAILY [facility] Subjective: Patient seen and chart reviewed. Case discussed with treatment team. On interview, patient states that she has been "in a delusional mood" but continues to lack insight into symptoms, feels people are still emotionally torturing her, has closed her blinds so that they canont watch her, etc. She has a brighter affect than seen previously. She continues to be hyperreligious and hypertalkative. Patient denies any SI, HI. She continues to have frequent AVH. She has been adherent with medications. Nursing staff report patient continues to exhibit signs of psychosis and has been hypertalkative, but has not had any significant problematic behaviors on the unit. Patient slept 6.5 hours overnight. VSS. Patient is eating well. Psychotropic PRNs required in the past 24 hours: none. Start Time: 08:00 Stop Time: 08:20 Mental Status Exam Vitals: Last Vital Signs Temp 97.0 F 12/02/17 08:00 Pulse 103 H 12/02/17 08:00 Resp 20 12/02/17 08:00 BP 127/65 12/02/17 08:00 Pulse Ox 96 12/02/17 08:00 Height: 1.6 m Weight: 77.3 kg - Mental Status Exam Muscle Strength/Tone: Normal Dressing: Eccentric Grooming: Disheveled Attitude: Cooperative Motor Activity: Normal Eye Contact: Good Speech: Rapid, Pressured Volume: Normal Rhythm: Appropriate Rhythm Orientation: Oriented X4 Mood: Neutral Affect: Manic Rate of Thoughts: Pressured Thought Organization: Disorganized, Perseverations Associations: Flight of Ideas, Illogical Abstract Reasoning: Intact, able to abstract Computation: Intact Thought Content: Delusions, Ruminations, Helplessness, Paranoia, Grandeur, Hyper -religiosity Perception/Psychotic: Psychotic Current Hallucinations: Visual, Auditory, Command (not to harm others but to get out of apartment) Fund of Knowledge: Enrique aware current events Memory: Other (Unclear whether there may be deficits) Suicidal Ideation: Denies Homicidal Ideation: Denies Insight: Impaired Judgement: Impaired Impulse Control: Fair - Laboratory Result Diagrams: 11/30/17 07:00 Assessment and Plan (1) Bipolar 1 disorder, mixed, severe Problem details: with psychotic features r/o MNCD Current visit: Yes Status: Acute Start Depakote ER 750mg PO Q HS to target continued manic symptoms. Hospital Course Summary Disclaimer: The visit summary below is not to be considered part of the above Progress Note. Hospital Course: Impression Psychosis Paranoia NAFLD Tobacco dependence Plan Agree with involuntary psychiatric admission under the care of Dr. Hercules for further evaluation and treatment Medical labs from acute stay evaluated and stable. All unremarkable May want to consider CT of brain to rule out underline intracranial disease process Monitor vital signs Tylenol as needed for pain May use lotion topically to sunburn Encourage patient to participate in unit activities and provide a safe environment It does not appear that patient has a PCP. CM and account services manager involved. They have filed petition to [facility] Attorney's Office for involuntary tx. Petition 11/28/17 psych note- Pt refusing meds but no behaviors. Continue current care 11/29/17 Psych note- Pt remains paranoid and delusional. Continue current care. 11/30/17 Psych: Patient court-ordered for psychiatric treatment and she agrees to trial of Zyprexa Zydis 5mg PO q HS to start tonight. 12/01/17 Psych: Continue Zyprexa Zydis 5mg PO q HS -- patient prefers to take this medication rather than try another antipsychotic. If she tolerates it will likely start additional mood stabilizer on 12/02. 12/02/17 PSych: Start Depakote ER 750mg PO Q HS to target continued manic symptoms.
[2017-12-02] MEDS: OLANZapine ODT 5 MG TABLET PO SCH (21:05)
[2017-12-03] MEDS: NICOTINE 14 MG PATCH TD SCH ×2 (08:54→14:13)
[2017-12-03] MEDS: CYANOCOBALAMIN (B-12) 500mcg TABLET PO SCH (08:54)
[2017-12-03] MEDS: VITAMIN E 400 UNIT CAPSULE PO SCH (08:55)
[2017-12-03] MEDS: NICOTINE PATCH REMOVAL TD SCH (08:57)
--- NOTE | 2017-12-03 09:46 | Neuropsych Progress Note ---
Generations Subjective Date: 12/03/17 - Sujective/Severity of Illness Medications: Acetaminophen (Tylenol) 500 mg PO Q5H PRN PRN Reason: Discomfort Cyanocobalamin (Vit. B-12) 1,000 mcg PO DAILY [facility] Last Admin: 12/03/17 08:54 Dose: 1,000 mcg Divalproex Sodium (Depakote Er) 750 mg PO HS [facility] Last Admin: 12/02/17 21:05 Dose: 750 mg Haloperidol (Haldol) 0.5 mg PO Q6H PRN PRN Reason: Extreme agitation Last Admin: 11/28/17 12:08 Dose: 0.5 mg Haloperidol Lactate (Haldol) 0.5 mg IM Q6H PRN PRN Reason: Extreme agitation Ibuprofen (Motrin) 400 mg PO Q4H PRN PRN Reason: Pain Lorazepam (Ativan) 1 mg PO Q6H PRN Lorazepam (Ativan) 0.5 mg PO Q6H PRN PRN Reason: Extreme agitation Last Admin: 11/30/17 16:12 Dose: 0.5 mg Lorazepam (Ativan Inj) 0.5 mg IM Q6H PRN PRN Reason: Extreme agitation Nicotine (Nicoderm) 14 mg TD DAILY [facility] Last Admin: 12/02/17 13:30 Dose: Not Given Nicotine (Nicotine Patch Removal) 1 removal TD DAILY [facility] Last Admin: 12/03/17 08:57 Dose: 1 removal Olanzapine (Zyprexa Zydis) 5 mg PO HS [facility] Last Admin: 12/02/17 21:05 Dose: 5 mg Vitamin E (Vitamin E) 400 unit PO DAILY [facility] Last Admin: 12/03/17 08:55 Dose: 400 unit Subjective: Patient seen and chart reviewed. Case discussed with treatment team. On interview, patient states that she needs an antibiotic "because of what has been going on internally." She also feels that she cannot drink dairy projects. She requests Vitamin E, which I will order. She has a brighter affect than seen previously. She does report sleeping well all night and feels she is tolerating medication well. She continues to be hyperreligious and hypertalkative. Patient denies any SI, HI. She continues to have frequent AVH. She has been adherent with medications. Nursing staff report patient continues to exhibit signs of psychosis and has been hypertalkative, but has not had any significant problematic behaviors on the unit. Patient slept 8.5 hours overnight. VSS. Patient is eating well. Psychotropic PRNs required in the past 24 hours: none. Start Time: 07:00 Stop Time: 07:20 Mental Status Exam Vitals: Last Vital Signs Temp 97.2 F 12/03/17 08:00 Pulse 87 12/03/17 08:00 Resp 16 12/03/17 08:00 BP 142/66 H 12/03/17 08:00 Pulse Ox 92 12/03/17 08:00 Height: 1.6 m Weight: 77.3 kg - Mental Status Exam Muscle Strength/Tone: Normal Dressing: Eccentric Grooming: Disheveled Attitude: Cooperative Motor Activity: Normal Eye Contact: Good Speech: Rapid, Pressured Volume: Normal Rhythm: Appropriate Rhythm Orientation: Oriented X4 Mood: Neutral Affect: Manic Rate of Thoughts: Pressured Thought Organization: Disorganized, Perseverations Associations: Flight of Ideas, Illogical Abstract Reasoning: Intact, able to abstract Computation: Intact Thought Content: Delusions, Ruminations, Helplessness, Paranoia, Grandeur, Hyper -religiosity Perception/Psychotic: Psychotic Current Hallucinations: Visual, Auditory, Command (not to harm others but to get out of apartment) Fund of Knowledge: Enrique aware current events Memory: Other (Unclear whether there may be deficits) Suicidal Ideation: Denies Homicidal Ideation: Denies Insight: Impaired Judgement: Impaired Impulse Control: Fair - Laboratory Result Diagrams: 11/30/17 07:00 Laboratory Results - last 24 hr 12/03/17 07:14 Hemoglobin A1c 6.0 H Triglycerides 92 Cholesterol 117 L LDL Cholesterol, Calc 62.6 L VLDL Cholesterol 18.4 HDL Cholesterol 36 L Cholesterol/HDL Ratio 3.3 Assessment and Plan (1) Bipolar 1 disorder, mixed, severe Problem details: with psychotic features r/o MNCD Current visit: Yes Status: Acute Continue current care with plan to check trough Depakote level on Tuesday 12/05 prior to HS dose. Hospital Course Summary Disclaimer: The visit summary below is not to be considered part of the above Progress Note. Hospital Course: Impression Psychosis Paranoia NAFLD Tobacco dependence Plan Agree with involuntary psychiatric admission under the care of Dr. Hercules for further evaluation and treatment Medical labs from acute stay evaluated and stable. All unremarkable May want to consider CT of brain to rule out underline intracranial disease process Monitor vital signs Tylenol as needed for pain May use lotion topically to sunburn Encourage patient to participate in unit activities and provide a safe environment It does not appear that patient has a PCP. CM and new client banking services clerk involved. They have filed petition to [facility] Attorney's Office for involuntary tx. Petition 11/28/17 psych note- Pt refusing meds but no behaviors. Continue current care 11/29/17 Psych note- Pt remains paranoid and delusional. Continue current care. 11/30/17 Psych: Patient court-ordered for psychiatric treatment and she agrees to trial of Zyprexa Zydis 5mg PO q HS to start tonight. 12/01/17 Psych: Continue Zyprexa Zydis 5mg PO q HS -- patient prefers to take this medication rather than try another antipsychotic. If she tolerates it will likely start additional mood stabilizer on 12/02. 12/02/17 Psych: Start Depakote ER 750mg PO Q HS to target continued manic symptoms. 12/03/17 Psych: Continue current care with plan to check trough Depakote level on Tuesday 12/05 prior to HS dose.
--- NOTE | 2017-12-03 14:44 | Progress Note ---
- Date 12/03/17 Subjective: Thao seen this morning following her bath. She is alert during conversation and examination. Overall, she seems much less paranoid, then my previous encounter last week. She does want to talk about how grape juice replaces her blood as she did have lab draw done previously in the day. She denies having any pain or feeling short of breath during examination. Medical chart reviewed, vital signs remain stable. Objective Vital signs: Temperature 97.2 F 12/03/17 08:00 Pulse Rate 87 12/03/17 08:00 Respiratory Rate 16 12/03/17 08:00 Blood Pressure 142/66 H 12/03/17 08:00 Pulse Oximetry 92 12/03/17 08:00 Height/Weight/BMI: Height 1.6 m Weight 77.3 kg Body Mass Index 30.3 - Constitutional Present: no acute distress, well nourished, well developed - Routine HEENT Exam Eye: Present: EOMI ENT: Present: mucous membranes moist, dentition normal - Routine Respiratory Exam Present: CTA bilaterally. Absent: wheezes - Routine Cardiovascular Exam Present: RRR, S1, S2. Absent: murmur - Routine Abdominal Exam Present: soft, normoactive bowel sounds, non distended. Absent: tenderness - Routine Extremities Exam Present: normal capillary refill - Routine Skin Exam Present: intact, dry, warm - Routine Neurological Exam Present: alert, CN II-XII intact, moving all extremities - Routine Lymphatic Exam Lymphatic: Absent: adenopathy - Routine Psychiatric Exam Present: cooperative Results - Labs CBC & Chem 7: 11/30/17 07:00 Assessment and Plan (1) Acute psychosis Current visit: No Status: Acute Assessment and Plan: Impression Psychosis Paranoia NAFLD Tobacco dependence Low normal vitamin B12 level Obesity with BMI 30.3 Plan Psychiatric care as per Dr. Hercules Paranoia appears to be improving on current regimen. Tylenol as needed for pain Overall, appears medically stable. chart reviewed Encourage patient to participate in unit activities and provide a safe environment - Physician Narrative Physician: Segundo Tejeda MD Narrative: Date: 12/03/17 Time: 1704 Have independently interviewed and examined pt. Chart reviewed. Case discussed with ED physician and my TECHNOLOGY TRAINING ASSOCIATE. Care plan developed with my supervision; agree with above. Resting comfortably. Denies soa, cough, pain, nausea. Said she had a question but got up and walked away using a walker. NAD. CTAB. RRR. s/nt/nd. BORJA Medically stable. Continue supportive care per Dr. Hercules and team. Hospital Course Summary Disclaimer: The visit summary below is not to be considered part of the above Progress Note. Hospital Course: Impression Psychosis Paranoia NAFLD Tobacco dependence Plan Agree with involuntary psychiatric admission under the care of Dr. Hercules for further evaluation and treatment Medical labs from acute stay evaluated and stable. All unremarkable May want to consider CT of brain to rule out underline intracranial disease process Monitor vital signs Tylenol as needed for pain May use lotion topically to sunburn Encourage patient to participate in unit activities and provide a safe environment It does not appear that patient has a PCP. CM and administrative services officer involved. They have filed petition to [facility] Attorney's Office for involuntary tx. Petition 11/28/17 psych note- Pt refusing meds but no behaviors. Continue current care 11/29/17 Psych note- Pt remains paranoid and delusional. Continue current care. 11/30/17 Psych: Patient court-ordered for psychiatric treatment and she agrees to trial of Zyprexa Zydis 5mg PO q HS to start tonight. 12/01/17 Psych: Continue Zyprexa Zydis 5mg PO q HS -- patient prefers to take this medication rather than try another antipsychotic. If she tolerates it will likely start additional mood stabilizer on 12/02. 12/02/17 Psych: Start Depakote ER 750mg PO Q HS to target continued manic symptoms. 12/03/17 Psych: Continue current care with plan to check trough Depakote level on Tuesday 12/05 prior to HS dose. 12/03 Psychiatric care as per Dr. Hercules Paranoia appears to be improving on current regimen. Tylenol as needed for pain Overall, appears medically stable. chart reviewed Encourage patient to participate in unit activities and provide a safe environment
[2017-12-03] MEDS: OLANZapine ODT 5 MG TABLET PO SCH (20:24)
[2017-12-04] MEDS: NICOTINE 14 MG PATCH TD SCH (09:13)
[2017-12-04] MEDS: VITAMIN E 400 UNIT CAPSULE PO SCH (09:13)
[2017-12-04] MEDS: CYANOCOBALAMIN (B-12) 500mcg TABLET PO SCH (09:13)
[2017-12-04] MEDS: NICOTINE PATCH REMOVAL TD SCH (09:14)
--- NOTE | 2017-12-04 12:15 | Neuropsych Progress Note ---
[facility] Subjective Date: 12/04/17 - Sujective/Severity of Illness Medications: Acetaminophen (Tylenol) 500 mg PO Q5H PRN PRN Reason: Discomfort Cyanocobalamin (Vit. B-12) 1,000 mcg PO DAILY [facility] Last Admin: 12/04/17 09:13 Dose: 1,000 mcg Divalproex Sodium (Depakote Er) 750 mg PO HS [facility] Last Admin: 12/03/17 20:25 Dose: 750 mg Haloperidol (Haldol) 0.5 mg PO Q6H PRN PRN Reason: Extreme agitation Last Admin: 11/28/17 12:08 Dose: 0.5 mg Haloperidol Lactate (Haldol) 0.5 mg IM Q6H PRN PRN Reason: Extreme agitation Ibuprofen (Motrin) 400 mg PO Q4H PRN PRN Reason: Pain Lorazepam (Ativan) 1 mg PO Q6H PRN Lorazepam (Ativan) 0.5 mg PO Q6H PRN PRN Reason: Extreme agitation Last Admin: 11/30/17 16:12 Dose: 0.5 mg Lorazepam (Ativan Inj) 0.5 mg IM Q6H PRN PRN Reason: Extreme agitation Nicotine (Nicoderm) 14 mg TD DAILY [facility] Last Admin: 12/04/17 09:13 Dose: Not Given Nicotine (Nicotine Patch Removal) 1 removal TD DAILY [facility] Last Admin: 12/04/17 09:14 Dose: Not Given Olanzapine (Zyprexa Zydis) 5 mg PO [facility] Last Admin: 12/03/17 20:24 Dose: 5 mg Vitamin E (Vitamin E) 400 unit PO DAILY [facility] Last Admin: 12/04/17 09:13 Dose: 400 unit Subjective: Patient seen and chart reviewed. Case discussed with treatment team. Patient is sleeping at time of rounds. She has been adherent with medications though requires reassurance. Nursing staff report patient continues to exhibit signs of psychosis and has been hypertalkative, but has not had any significant problematic behaviors on the unit. Patient slept 8.75 hours overnight. VSS. Patient is eating well. Psychotropic PRNs required in the past 24 hours: none. Start Time: 10:00 Stop Time: 10:20 Mental Status Exam Vitals: Last Vital Signs Temp 97.8 F 12/04/17 08:00 Pulse 76 12/04/17 08:00 Resp 16 12/04/17 08:00 BP 136/65 12/04/17 08:00 Pulse Ox 95 12/04/17 08:00 Height: 1.6 m Weight: 77.3 kg - Mental Status Exam Muscle Strength/Tone: Normal Dressing: Eccentric Grooming: Disheveled Attitude: Cooperative Motor Activity: Normal Eye Contact: Good Speech: Rapid, Pressured Volume: Normal Rhythm: Appropriate Rhythm Orientation: Oriented X4 Mood: Neutral Affect: Anxious Rate of Thoughts: Pressured Thought Organization: Disorganized, Perseverations Associations: Flight of Ideas, Illogical Abstract Reasoning: Intact, able to abstract Computation: Intact Thought Content: Delusions, Ruminations, Helplessness, Paranoia, Grandeur, Hyper -religiosity Perception/Psychotic: Psychotic Current Hallucinations: Visual, Auditory, Command (not to harm others but to get out of apartment) Fund of Knowledge: Enrique aware current events Memory: Other (Unclear whether there may be deficits) Suicidal Ideation: Denies Homicidal Ideation: Denies Insight: Impaired Judgement: Impaired Impulse Control: Fair - Laboratory Result Diagrams: 11/30/17 07:00 Assessment and Plan (1) Bipolar 1 disorder, mixed, severe Problem details: with psychotic features r/o MNCD Current visit: Yes Status: Acute Increase Zyprexa to 10mg PO q HS to target psychosis. Will check trough Depakote level in early evening on 12/05. Hospital Course Summary Disclaimer: The visit summary below is not to be considered part of the above Progress Note. Hospital Course: Impression Psychosis Paranoia NAFLD Tobacco dependence Plan Agree with involuntary psychiatric admission under the care of Dr. Hercules for further evaluation and treatment Medical labs from acute stay evaluated and stable. All unremarkable May want to consider CT of brain to rule out underline intracranial disease process Monitor vital signs Tylenol as needed for pain May use lotion topically to sunburn Encourage patient to participate in unit activities and provide a safe environment It does not appear that patient has a PCP. CM and software engineer web services involved. They have filed petition to [facility] Attorney's Office for involuntary tx. Petition 11/28/17 psych note- Pt refusing meds but no behaviors. Continue current care 11/29/17 Psych note- Pt remains paranoid and delusional. Continue current care. 11/30/17 Psych: Patient court-ordered for psychiatric treatment and she agrees to trial of Zyprexa Zydis 5mg PO q HS to start tonight. 12/01/17 Psych: Continue Zyprexa Zydis 5mg PO q HS -- patient prefers to take this medication rather than try another antipsychotic. If she tolerates it will likely start additional mood stabilizer on 12/02. 12/02/17 Psych: Start Depakote ER 750mg PO Q HS to target continued manic symptoms. 12/03/17 Psych: Continue current care with plan to check trough Depakote level on Tuesday 12/05 prior to HS dose. 12/03 Psychiatric care as per Dr. Hercules Paranoia appears to be improving on current regimen. Tylenol as needed for pain Overall, appears medically stable. chart reviewed Encourage patient to participate in unit activities and provide a safe environment. 12/04/17 Psych: Increase Zyprexa to 10mg PO q HS to target psychosis. Will check trough Depakote level tomorrow.
[2017-12-04] MEDS: OLANZapine 10 MG TABLET PO SCH (20:46)
[2017-12-05] MEDS: CYANOCOBALAMIN (B-12) 500mcg TABLET PO SCH (09:55)
[2017-12-05] MEDS: NICOTINE 14 MG PATCH TD SCH (09:55)
[2017-12-05] MEDS: VITAMIN E 400 UNIT CAPSULE PO SCH (09:56)
[2017-12-05] MEDS: NICOTINE PATCH REMOVAL TD SCH (09:56)
--- NOTE | 2017-12-05 15:53 | Neuropsych Progress Note ---
[facility] Subjective Date: 12/06/17 - Sujective/Severity of Illness Medications: Acetaminophen (Tylenol) 500 mg PO Q5H PRN PRN Reason: Discomfort Cyanocobalamin (Vit. B-12) 1,000 mcg PO DAILY [facility] Last Admin: 12/05/17 09:55 Dose: 1,000 mcg Divalproex Sodium (Depakote Er) 750 mg PO HS [facility] Last Admin: 12/04/17 20:49 Dose: 750 mg Haloperidol (Haldol) 0.5 mg PO Q6H PRN PRN Reason: Extreme agitation Last Admin: 11/28/17 12:08 Dose: 0.5 mg Haloperidol Lactate (Haldol) 0.5 mg IM Q6H PRN PRN Reason: Extreme agitation Ibuprofen (Motrin) 400 mg PO Q4H PRN PRN Reason: Pain Lorazepam (Ativan) 1 mg PO Q6H PRN Lorazepam (Ativan) 0.5 mg PO Q6H PRN PRN Reason: Extreme agitation Last Admin: 11/30/17 16:12 Dose: 0.5 mg Lorazepam (Ativan Inj) 0.5 mg IM Q6H PRN PRN Reason: Extreme agitation Nicotine (Nicoderm) 14 mg TD DAILY [facility] Last Admin: 12/05/17 09:55 Dose: 14 mg Nicotine (Nicotine Patch Removal) 1 removal TD DAILY [facility] Last Admin: 12/05/17 09:56 Dose: 1 removal Olanzapine (Zyprexa) 10 mg PO HS [facility] Last Admin: 12/04/17 20:46 Dose: 10 mg Vitamin E (Vitamin E) 400 unit PO DAILY [facility] Last Admin: 12/05/17 09:56 Dose: 400 unit Subjective: Patient seen and chart reviewed. Case discussed with treatment team. Patient is pleasant and cooperative at time of rounds, but continues to be hypertalkative and focused on getting papers from her house. She asks if she could take another form of Depakote (such as sprinkles) and would prefer capsules instead of tablets. She has been adherent with medications though requires reassurance. Nursing staff report patient continues be delusional and has been hypertalkative , but has not had any significant problematic behaviors on the unit. Patient slept 7.25 hours overnight. VSS. Patient is eating well. Psychotropic PRNs required in the past 24 hours: none. Start Time: 11:00 Stop Time: 11:20 Mental Status Exam Vitals: Last Vital Signs Temp 97.0 F 12/05/17 08:00 Pulse 76 12/05/17 08:00 Resp 16 12/05/17 08:00 BP 128/58 12/05/17 08:00 Pulse Ox 95 12/05/17 08:00 Height: 1.6 m Weight: 77.3 kg - Mental Status Exam Muscle Strength/Tone: Normal Dressing: Eccentric Grooming: Disheveled Attitude: Cooperative Motor Activity: Normal Eye Contact: Good Speech: Rapid, Pressured (decreasing though continues to be hypertalkative) Volume: Normal Rhythm: Appropriate Rhythm Orientation: Oriented X4 Mood: Neutral Rate of Thoughts: Pressured Thought Organization: Circumstantial, Perseverations Associations: Flight of Ideas, Illogical Abstract Reasoning: Intact, able to abstract Computation: Intact Thought Content: Delusions, Ruminations, Helplessness, Paranoia Perception/Psychotic: Psychotic Current Hallucinations: Visual, Auditory, Command (not to harm others but to get out of apartment) Fund of Knowledge: Enrique aware current events Memory: Other (Unclear whether there may be deficits) Suicidal Ideation: Denies Homicidal Ideation: Denies Insight: Impaired Judgement: Impaired Impulse Control: Fair - Laboratory Result Diagrams: 12/05/17 17:47 12/05/17 17:47 Assessment and Plan (1) Bipolar 1 disorder, mixed, severe Problem details: with psychotic features r/o MNCD Current visit: Yes Status: Acute Will order labs, VPA level this evening and adjust to therapeutic level. Improving overall. Patient requests to switch from Depakote ER to Depakote sprinkles but will wait until VPA level is obtained. Hospital Course Summary Disclaimer: The visit summary below is not to be considered part of the above Progress Note. Hospital Course: Impression Psychosis Paranoia NAFLD Tobacco dependence Plan Agree with involuntary psychiatric admission under the care of Dr. Hercules for further evaluation and treatment Medical labs from acute stay evaluated and stable. All unremarkable May want to consider CT of brain to rule out underline intracranial disease process Monitor vital signs Tylenol as needed for pain May use lotion topically to sunburn Encourage patient to participate in unit activities and provide a safe environment It does not appear that patient has a PCP. CM and career services assistant involved. They have filed petition to [facility] Attorney's Office for involuntary tx. Petition 6/23/18 psych note- Pt refusing meds but no behaviors. Continue current care 11/29/17 Psych note- Pt remains paranoid and delusional. Continue current care. 11/30/17 Psych: Patient court-ordered for psychiatric treatment and she agrees to trial of Zyprexa Zydis 5mg PO q HS to start tonight. 12/01/17 Psych: Continue Zyprexa Zydis 5mg PO q HS -- patient prefers to take this medication rather than try another antipsychotic. If she tolerates it will likely start additional mood stabilizer on 12/02. 12/02/17 Psych: Start Depakote ER 750mg PO Q HS to target continued manic symptoms. 12/03/17 Psych: Continue current care with plan to check trough Depakote level on Tuesday 12/05 prior to HS dose. 12/03 Psychiatric care as per Dr. Hercules Paranoia appears to be improving on current regimen. Tylenol as needed for pain Overall, appears medically stable. chart reviewed Encourage patient to participate in unit activities and provide a safe environment. 12/04/17 Psych: Increase Zyprexa to 10mg PO q HS to target psychosis. Will check trough Depakote level tomorrow. 12/05/17 Psych: Will order labs, VPA level this evening and adjust to therapeutic level. Improving overall. Patient requests to switch from Depakote ER to Depakote sprinkles but will wait until VPA level is obtained.
[2017-12-05] MEDS: OLANZapine 10 MG TABLET PO SCH (20:12)
[2017-12-06] MEDS: VITAMIN E 400 UNIT CAPSULE PO SCH (08:17)
[2017-12-06] MEDS: CYANOCOBALAMIN (B-12) 500mcg TABLET PO SCH (08:17)
[2017-12-06] MEDS: NICOTINE PATCH REMOVAL TD SCH (08:17)
[2017-12-06] MEDS: NICOTINE 14 MG PATCH TD SCH (08:17)
--- NOTE | 2017-12-06 14:06 | Neuropsych Progress Note ---
[facility] Subjective Date: 12/06/17 - Sujective/Severity of Illness Medications: Acetaminophen (Tylenol) 500 mg PO Q5H PRN PRN Reason: Discomfort Cyanocobalamin (Vit. B-12) 1,000 mcg PO DAILY [facility] Last Admin: 12/06/17 08:17 Dose: 1,000 mcg Divalproex Sodium (Depakote Sprinkle) 250 mg PO TID [facility] Haloperidol (Haldol) 0.5 mg PO Q6H PRN PRN Reason: Extreme agitation Last Admin: 11/28/17 12:08 Dose: 0.5 mg Haloperidol Lactate (Haldol) 0.5 mg IM Q6H PRN PRN Reason: Extreme agitation Ibuprofen (Motrin) 400 mg PO Q4H PRN PRN Reason: Pain Lorazepam (Ativan) 1 mg PO Q6H PRN Lorazepam (Ativan) 0.5 mg PO Q6H PRN PRN Reason: Extreme agitation Last Admin: 11/30/17 16:12 Dose: 0.5 mg Lorazepam (Ativan Inj) 0.5 mg IM Q6H PRN PRN Reason: Extreme agitation Nicotine (Nicoderm) 14 mg TD DAILY [facility] Last Admin: 12/06/17 08:17 Dose: 14 mg Nicotine (Nicotine Patch Removal) 1 removal TD DAILY [facility] Last Admin: 12/06/17 08:17 Dose: 1 removal Olanzapine (Zyprexa) 10 mg PO HS [facility] Last Admin: 12/05/17 20:12 Dose: 10 mg Vitamin E (Vitamin E) 400 unit PO DAILY [facility] Last Admin: 12/06/17 08:17 Dose: 400 unit Subjective: Patient seen and chart reviewed. Case discussed with treatment team. Patient is pleasant and cooperative at time of rounds, but continues to be hypertalkative and focused on getting papers from her house (as she was yesterday). Seems to be perseverating less on delusional thoughts though now feels people were trashing her online (less bizarre in nature). She has been adherent with medications and agreed to switch to Depakote sprinkles tonight. Nursing staff report patient continues be delusional and has been hypertalkative , but has not had any significant problematic behaviors on the unit. Patient slept 8.25 hours overnight. VSS. Patient is eating well. Psychotropic PRNs required in the past 24 hours: none. Trough VPA level was 53.1 last night (on Depakote ER 750mg PO q HS). Start Time: 08:00 Stop Time: 08:20 Mental Status Exam Vitals: Last Vital Signs Temp 97.0 F 12/06/17 08:00 Pulse 82 12/06/17 08:00 Resp 16 12/06/17 08:00 BP 131/91 H 12/06/17 08:00 Pulse Ox 93 12/06/17 08:00 Height: 1.6 m Weight: 77.3 kg - Mental Status Exam Muscle Strength/Tone: Normal Dressing: Eccentric Grooming: Disheveled Attitude: Cooperative Motor Activity: Normal Eye Contact: Good Speech: Other (continues to be hypertalkative, less pressured than on admission) Volume: Normal Rhythm: Appropriate Rhythm Orientation: Oriented X4 Mood: Neutral Affect: Manic (improving) Rate of Thoughts: Pressured Thought Organization: Circumstantial, Perseverations Associations: Flight of Ideas, Illogical Abstract Reasoning: Intact, able to abstract Computation: Intact Thought Content: Delusions, Ruminations, Helplessness, Paranoia Perception/Psychotic: Psychotic Current Hallucinations: Visual, Auditory, Command (not to harm others but to get out of apartment) Fund of Knowledge: Enrique aware current events Memory: Other (Unclear whether there may be deficits) Suicidal Ideation: Denies Homicidal Ideation: Denies Insight: Impaired Judgement: Impaired Impulse Control: Fair - Laboratory Result Diagrams: 12/05/17 17:47 12/05/17 17:47 Laboratory Results - last 24 hr 12/05/17 12/05/17 12/05/17 17:47 17:47 17:47 WBC 6.3 RBC 4.77 Hgb 14.7 Hct 44.0 MCV 92.2 MCH 30.8 MCHC 33.4 RDW Std Deviation 44.0 Plt Count 161 MPV 10.4 Immature Gran % (Auto) 0.3 Neut % (Auto) 55.3 Lymph % (Auto) 33.5 [place] % (Auto) 7.1 Eos % (Auto) 3.3 Baso % (Auto) 0.5 Neut # (Auto) 3.5 Lymph # (Auto) 2.1 [place] # (Auto) 0.5 Eos # (Auto) 0.2 Baso # (Auto) 0.0 Abs Immat Gran (auto) 0.02 Turbidity < 20 Sodium 136 Potassium 3.8 Chloride 99 Carbon Dioxide 29 Anion Gap 8 BUN 9.0 Creatinine 0.7 GFR Calculation 82 BUN/Creatinine Ratio 13 Glucose 113 H Calculated Osmolality 262 Calcium 8.9 Total Bilirubin 0.40 Conjugated Bilirubin 0.00 Unconjugated Bilirubin 0.20 Icterus Index < 2 AST 24 ALT 21 Alkaline Phosphatase 72 Total Protein 6.4 Albumin 3.6 Globulin 2.8 Albumin/Globulin Ratio 1.3 Specimen Hemolysis < 15 Valproic Acid 53.1 Assessment and Plan (1) Bipolar 1 disorder, mixed, severe Problem details: with psychotic features r/o MNCD Current visit: Yes Status: Acute Will switch from Depakote ER to Depakote sprinkles 250mg PO TID. Patient improving overall; will assess cognition and ability to function independently via SLUMS, DAILY. Hospital Course Summary Disclaimer: The visit summary below is not to be considered part of the above Progress Note. Hospital Course: Impression Psychosis Paranoia NAFLD Tobacco dependence Plan Agree with involuntary psychiatric admission under the care of Dr. Hercules for further evaluation and treatment Medical labs from acute stay evaluated and stable. All unremarkable May want to consider CT of brain to rule out underline intracranial disease process Monitor vital signs Tylenol as needed for pain May use lotion topically to sunburn Encourage patient to participate in unit activities and provide a safe environment It does not appear that patient has a PCP. CM and pharmacy services representative involved. They have filed petition to [facility] Attorney's Office for involuntary tx. Petition 11/28/17 psych note- Pt refusing meds but no behaviors. Continue current care 11/29/17 Psych note- Pt remains paranoid and delusional. Continue current care. 11/30/17 Psych: Patient court-ordered for psychiatric treatment and she agrees to trial of Zyprexa Zydis 5mg PO q HS to start tonight. 12/01/17 Psych: Continue Zyprexa Zydis 5mg PO q HS -- patient prefers to take this medication rather than try another antipsychotic. If she tolerates it will likely start additional mood stabilizer on 12/02. 12/02/17 Psych: Start Depakote ER 750mg PO Q HS to target continued manic symptoms. 12/03/17 Psych: Continue current care with plan to check trough Depakote level on Tuesday 12/05 prior to HS dose. 12/03 Psychiatric care as per Dr. Hercules Paranoia appears to be improving on current regimen. Tylenol as needed for pain Overall, appears medically stable. chart reviewed Encourage patient to participate in unit activities and provide a safe environment. 12/04/17 Psych: Increase Zyprexa to 10mg PO q HS to target psychosis. Will check trough Depakote level tomorrow. 12/05/17 Psych: Will order labs, VPA level this evening and adjust to therapeutic level. Improving overall. Patient requests to switch from Depakote ER to Depakote sprinkles but will wait until VPA level is obtained. 12/06/17 Psych: Trough VPA level 53.1 on 12/05. Will switch from Depakote ER to Depakote sprinkles 250mg PO TID. Patient improving overall; will assess cognition and ability to function independently via [facility], DAILY.
[2017-12-06] MEDS: DIVALPROEX SPRINKLE 125 MG CAPSULE PO SCH ×2 (16:24→20:13)
[2017-12-06] MEDS: OLANZapine 10 MG TABLET PO SCH (20:13)
[2017-12-07] MEDS: NICOTINE 14 MG PATCH TD SCH ×2 (09:22→09:28)
[2017-12-07] MEDS: VITAMIN E 400 UNIT CAPSULE PO SCH (09:22)
[2017-12-07] MEDS: DIVALPROEX SPRINKLE 125 MG CAPSULE PO SCH ×4 (09:22→20:52)
[2017-12-07] MEDS: CYANOCOBALAMIN (B-12) 500mcg TABLET PO SCH (09:22)
[2017-12-07] MEDS: NICOTINE PATCH REMOVAL TD SCH (09:23)
[2017-12-07] MEDS: OLANZapine 10 MG TABLET PO SCH ×2 (19:55→20:52)
--- NOTE | 2017-12-07 21:02 | Neuropsych Progress Note ---
[facility] Subjective Date: 12/08/17 - Sujective/Severity of Illness Medications: Acetaminophen (Tylenol) 500 mg PO Q5H PRN PRN Reason: Discomfort Artificial Tears (Refresh Classic) 1 drop EACH EYE PRN PRN PRN Reason: PRN DRY EYES Cyanocobalamin (Vit. B-12) 1,000 mcg PO DAILY [facility] Last Admin: 12/07/17 09:22 Dose: 1,000 mcg Divalproex Sodium (Depakote Sprinkle) 250 mg PO TID [facility] Last Admin: 12/07/17 20:52 Dose: Not Given Haloperidol (Haldol) 0.5 mg PO Q6H PRN PRN Reason: Extreme agitation Last Admin: 11/28/17 12:08 Dose: 0.5 mg Haloperidol Lactate (Haldol) 0.5 mg IM Q6H PRN PRN Reason: Extreme agitation Ibuprofen (Motrin) 400 mg PO Q4H PRN PRN Reason: Pain Lorazepam (Ativan) 1 mg PO Q6H PRN Lorazepam (Ativan) 0.5 mg PO Q6H PRN PRN Reason: Extreme agitation Last Admin: 11/30/17 16:12 Dose: 0.5 mg Lorazepam (Ativan Inj) 0.5 mg IM Q6H PRN PRN Reason: Extreme agitation Nicotine (Nicoderm) 14 mg TD DAILY [facility] Last Admin: 12/07/17 09:28 Dose: Not Given Nicotine (Nicotine Patch Removal) 1 removal TD DAILY [facility] Last Admin: 12/07/17 09:23 Dose: Not Given Olanzapine (Zyprexa) 10 mg PO HS [facility] Last Admin: 12/07/17 20:52 Dose: Not Given Vitamin E (Vitamin E) 400 unit PO DAILY [facility] Last Admin: 12/07/17 09:22 Dose: 400 unit Subjective: Patient seen and chart reviewed. Case discussed with treatment team. Patient is pleasant and cooperative at time of rounds, but continues to be hypertalkative and focused on getting papers from her house (as she was yesterday). Delusions are much less bizarre than upon admission. She did make an odd statement to staff about being able to sense that her friend had . She also stated someone had called the police on her and accused her of slapping a visitor. She has been adherent with medications. Nursing staff report patient continues be delusional and has been hypertalkative , but has not had any significant problematic behaviors on the unit. Patient slept 10.25 hours overnight. VSS. Patient is eating well. Psychotropic PRNs required in the past 24 hours: none. Trough VPA level was 53.1 (on Depakote ER 750mg PO q HS.; have since switched to Depakote sprinkles 250mg PO TID per patient request. Start Time: 17:00 Stop Time: 17:20 Mental Status Exam Vitals: Last Vital Signs Temp 97.2 F 12/07/17 20:37 Pulse 85 12/07/17 20:37 Resp 20 12/07/17 20:37 BP 133/64 12/07/17 20:37 Pulse Ox 95 12/07/17 20:37 Height: 1.6 m Weight: 77.3 kg - Mental Status Exam Muscle Strength/Tone: Normal Dressing: Eccentric Grooming: Disheveled Attitude: Cooperative Motor Activity: Normal Eye Contact: Good Speech: Other (continues to be hypertalkative, less pressured than on admission) Volume: Normal Rhythm: Appropriate Rhythm Orientation: Oriented X4 Mood: Neutral Affect: Sad Rate of Thoughts: Pressured Thought Organization: Circumstantial, Perseverations Associations: Flight of Ideas, Illogical Abstract Reasoning: Intact, able to abstract Computation: Intact Thought Content: Delusions (resolving), Ruminations, Helplessness, Paranoia Perception/Psychotic: Psychotic Current Hallucinations: Visual, Auditory, Command (not to harm others but to get out of apartment) Fund of Knowledge: Enrique aware current events Memory: Other (Unclear whether there may be deficits) Suicidal Ideation: Denies Homicidal Ideation: Denies Insight: Impaired Judgement: Impaired Impulse Control: Fair - Laboratory Result Diagrams: 12/05/17 17:47 12/05/17 17:47 Assessment and Plan (1) Bipolar 1 disorder, mixed, severe Problem details: with psychotic features r/o MNCD Current visit: Yes Status: Acute Continue current care; will repeat SLUMS and likely DAILY to assess functionality at home. Hospital Course Summary Disclaimer: The visit summary below is not to be considered part of the above Progress Note. Hospital Course: Impression Psychosis Paranoia NAFLD Tobacco dependence Plan Agree with involuntary psychiatric admission under the care of Dr. Hercules for further evaluation and treatment Medical labs from acute stay evaluated and stable. All unremarkable May want to consider CT of brain to rule out underline intracranial disease process Monitor vital signs Tylenol as needed for pain May use lotion topically to sunburn Encourage patient to participate in unit activities and provide a safe environment It does not appear that patient has a PCP. CM and food services director involved. They have filed petition to [facility] Attorney's Office for involuntary tx. Petition 11/28/17 psych note- Pt refusing meds but no behaviors. Continue current care 11/29/17 Psych note- Pt remains paranoid and delusional. Continue current care. 11/30/17 Psych: Patient court-ordered for psychiatric treatment and she agrees to trial of Zyprexa Zydis 5mg PO q HS to start tonight. 12/01/17 Psych: Continue Zyprexa Zydis 5mg PO q HS -- patient prefers to take this medication rather than try another antipsychotic. If she tolerates it will likely start additional mood stabilizer on 12/02. 12/02/17 Psych: Start Depakote ER 750mg PO Q HS to target continued manic symptoms. 12/03/17 Psych: Continue current care with plan to check trough Depakote level on Tuesday 12/05 prior to HS dose. 12/03 Psychiatric care as per Dr. Hercules Paranoia appears to be improving on current regimen. Tylenol as needed for pain Overall, appears medically stable. chart reviewed Encourage patient to participate in unit activities and provide a safe environment. 12/04/17 Psych: Increase Zyprexa to 10mg PO q HS to target psychosis. Will check trough Depakote level tomorrow. 12/05/17 Psych: Will order labs, VPA level this evening and adjust to therapeutic level. Improving overall. Patient requests to switch from Depakote ER to Depakote sprinkles but will wait until VPA level is obtained. 12/06/17 Psych: Trough VPA level 53.1 on 12/05. Will switch from Depakote ER to Depakote sprinkles 250mg PO TID. Patient improving overall; will assess cognition and ability to function independently via SLUMS, DAILY. 12/07/17 Psych: Continue current care; will repeat SLUMS and likely DAILY to assess functionality at home.
[2017-12-08] MEDS: DIVALPROEX SPRINKLE 125 MG CAPSULE PO SCH ×3 (09:28→19:27)
[2017-12-08] MEDS: CYANOCOBALAMIN (B-12) 500mcg TABLET PO SCH (09:28)
[2017-12-08] MEDS: NICOTINE PATCH REMOVAL TD SCH (09:29)
[2017-12-08] MEDS: VITAMIN E 400 UNIT CAPSULE PO SCH (09:29)
[2017-12-08] MEDS: NICOTINE 14 MG PATCH TD SCH (11:03)
[2017-12-08] MEDS: REFRESH CLASSIC Eye Drops 0.4ml EACH EYE PRN (11:10)
[2017-12-08] MEDS: OLANZapine 10 MG TABLET PO SCH (19:26)
[2017-12-08] MEDS ORDERED: OLANZapine 5 MG TABLET PO ONE (20:24)
--- NOTE | 2017-12-08 22:28 | Neuropsych Progress Note ---
[facility] Subjective Date: 12/09/17 - Sujective/Severity of Illness Medications: Acetaminophen (Tylenol) 500 mg PO Q5H PRN PRN Reason: Discomfort Artificial Tears (Refresh Classic) 1 drop EACH EYE PRN PRN PRN Reason: PRN DRY EYES Last Admin: 12/08/17 11:10 Dose: 1 drop Cyanocobalamin (Vit. B-12) 1,000 mcg PO DAILY [facility] Last Admin: 12/08/17 09:28 Dose: 1,000 mcg Divalproex Sodium (Depakote Sprinkle) 250 mg PO TID [facility] Last Admin: 12/08/17 19:27 Dose: 250 mg Haloperidol (Haldol) 0.5 mg PO Q6H PRN PRN Reason: Extreme agitation Last Admin: 11/28/17 12:08 Dose: 0.5 mg Haloperidol Lactate (Haldol) 0.5 mg IM Q6H PRN PRN Reason: Extreme agitation Ibuprofen (Motrin) 400 mg PO Q4H PRN PRN Reason: Pain Lorazepam (Ativan) 1 mg PO Q6H PRN Lorazepam (Ativan) 0.5 mg PO Q6H PRN PRN Reason: Extreme agitation Last Admin: 11/30/17 16:12 Dose: 0.5 mg Lorazepam (Ativan Inj) 0.5 mg IM Q6H PRN PRN Reason: Extreme agitation Nicotine (Nicoderm) 14 mg TD DAILY [facility] Last Admin: 12/08/17 11:03 Dose: Not Given Nicotine (Nicotine Patch Removal) 1 removal TD DAILY [facility] Last Admin: 12/08/17 09:29 Dose: 1 removal Olanzapine (Zyprexa) 5 mg PO ONE TIME ONE Stop: 12/08/17 20:25 Last Admin: 12/08/17 20:28 Dose: 5 mg Olanzapine (Zyprexa) 15 mg PO [facility] Vitamin E (Vitamin E) 400 unit PO DAILY [facility] Last Admin: 12/08/17 09:29 Dose: 400 unit Subjective: Patient seen and chart reviewed. Case discussed with treatment team. Patient is pleasant and cooperative at time of rounds, but now appears more restricted/sad and continues to be quite delusional. She was mildly irritable with others, focused on "Tena Whitfield at her apartment" and the things he was supposedly doing to her. She has been adherent with medications. Nursing staff report patient continues be delusional/paranoid, but has not had any significant problematic behaviors on the unit. Patient slept 8.75 hours overnight. VSS. Patient is eating well. Psychotropic PRNs required in the past 24 hours: none. Trough VPA level was 53.1 (on Depakote ER 750mg PO q HS.; have since switched to Depakote sprinkles 250mg PO TID per patient request. Start Time: 13:00 Stop Time: 13:20 Mental Status Exam Vitals: Last Vital Signs Temp 96.8 F 12/08/17 20:38 Pulse 83 12/08/17 20:38 Resp 19 12/08/17 20:38 BP 147/54 H 12/08/17 20:38 Pulse Ox 98 12/08/17 20:38 Height: 1.6 m Weight: 77.3 kg - Mental Status Exam Muscle Strength/Tone: Normal Dressing: Eccentric Grooming: Disheveled Attitude: Cooperative Motor Activity: Normal Eye Contact: Good Speech: Other (continues to be hypertalkative, less pressured than on admission) Volume: Normal Rhythm: Appropriate Rhythm Orientation: Oriented X4 Mood: Irritable (mild) Affect: Sad Rate of Thoughts: Appropriate Rate Thought Organization: Circumstantial, Perseverations Associations: Flight of Ideas, Illogical Abstract Reasoning: Intact, able to abstract Computation: Intact Thought Content: Delusions (resolving), Ruminations, Paranoia Perception/Psychotic: Psychotic Current Hallucinations: Visual, Auditory Fund of Knowledge: Enrique aware current events Memory: Other (Unclear whether there may be deficits) Suicidal Ideation: Denies Homicidal Ideation: Denies Insight: Impaired Judgement: Impaired Impulse Control: Fair - Laboratory Result Diagrams: 12/05/17 17:47 12/05/17 17:47 Assessment and Plan (1) Bipolar 1 disorder, mixed, severe Problem details: with psychotic features r/o MNCD Current visit: Yes Status: Acute Increase Zyprexa to 15mg PO q HS. Will continue to attempt to get DAILY as patient refused "because she is being sued" and asked the exchange mechanic to come back in 48 hours. Hospital Course Summary Disclaimer: The visit summary below is not to be considered part of the above Progress Note. Hospital Course: Impression Psychosis Paranoia NAFLD Tobacco dependence Plan Agree with involuntary psychiatric admission under the care of Dr. Hercules for further evaluation and treatment Medical labs from acute stay evaluated and stable. All unremarkable May want to consider CT of brain to rule out underline intracranial disease process Monitor vital signs Tylenol as needed for pain May use lotion topically to sunburn Encourage patient to participate in unit activities and provide a safe environment It does not appear that patient has a PCP. CM and outpatient services director involved. They have filed petition to [facility] Attorney's Office for involuntary tx. Petition 11/28/17 psych note- Pt refusing meds but no behaviors. Continue current care 11/29/17 Psych note- Pt remains paranoid and delusional. Continue current care. 11/30/17 Psych: Patient court-ordered for psychiatric treatment and she agrees to trial of Zyprexa Zydis 5mg PO q HS to start tonight. 12/01/17 Psych: Continue Zyprexa Zydis 5mg PO q HS -- patient prefers to take this medication rather than try another antipsychotic. If she tolerates it will likely start additional mood stabilizer on 12/02. 12/02/17 Psych: Start Depakote ER 750mg PO Q HS to target continued manic symptoms. 12/03/17 Psych: Continue current care with plan to check trough Depakote level on Tuesday 12/05 prior to HS dose. 12/03 Psychiatric care as per Dr. Hercules Paranoia appears to be improving on current regimen. Tylenol as needed for pain Overall, appears medically stable. chart reviewed Encourage patient to participate in unit activities and provide a safe environment. 12/04/17 Psych: Increase Zyprexa to 10mg PO q HS to target psychosis. Will check trough Depakote level tomorrow. 12/05/17 Psych: Will order labs, VPA level this evening and adjust to therapeutic level. Improving overall. Patient requests to switch from Depakote ER to Depakote sprinkles but will wait until VPA level is obtained. 12/06/17 Psych: Trough VPA level 53.1 on 12/05. Will switch from Depakote ER to Depakote sprinkles 250mg PO TID. Patient improving overall; will assess cognition and ability to function independently via SLUMS, DAILY. 12/07/17 Psych: Continue current care; will repeat SLUMS and likely DAILY to assess functionality at home. 12/08/17 Psych: Increase Zyprexa to 15mg PO q HS. Will continue to attempt to get DAILY as patient refused "because she is being sued" and asked the exchange mechanic to come back in 48 hours.
[2017-12-09] MEDS: DIVALPROEX SPRINKLE 125 MG CAPSULE PO SCH ×4 (03:27→20:14)
[2017-12-09] MEDS: VITAMIN E 400 UNIT CAPSULE PO SCH (08:58)
[2017-12-09] MEDS: NICOTINE 14 MG PATCH TD SCH (08:59)
[2017-12-09] MEDS: NICOTINE PATCH REMOVAL TD SCH (08:59)
[2017-12-09] MEDS: CYANOCOBALAMIN (B-12) 500mcg TABLET PO SCH (09:03)
--- NOTE | 2017-12-09 10:19 | Neuropsych Progress Note ---
[facility] Subjective Date: 12/09/17 - Sujective/Severity of Illness Medications: Acetaminophen (Tylenol) 500 mg PO Q5H PRN PRN Reason: Discomfort Artificial Tears (Refresh Classic) 1 drop EACH EYE PRN PRN PRN Reason: PRN DRY EYES Last Admin: 12/08/17 11:10 Dose: 1 drop Cyanocobalamin (Vit. B-12) 1,000 mcg PO DAILY [facility] Last Admin: 12/09/17 09:03 Dose: 1,000 mcg Divalproex Sodium (Depakote Sprinkle) 250 mg PO TID [facility] Last Admin: 12/09/17 08:58 Dose: 250 mg Haloperidol (Haldol) 0.5 mg PO Q6H PRN PRN Reason: Extreme agitation Last Admin: 11/28/17 12:08 Dose: 0.5 mg Haloperidol Lactate (Haldol) 0.5 mg IM Q6H PRN PRN Reason: Extreme agitation Ibuprofen (Motrin) 400 mg PO Q4H PRN PRN Reason: Pain Lorazepam (Ativan) 1 mg PO Q6H PRN Lorazepam (Ativan) 0.5 mg PO Q6H PRN PRN Reason: Extreme agitation Last Admin: 11/30/17 16:12 Dose: 0.5 mg Lorazepam (Ativan Inj) 0.5 mg IM Q6H PRN PRN Reason: Extreme agitation Nicotine (Nicoderm) 14 mg TD DAILY [facility] Last Admin: 12/09/17 08:59 Dose: 14 mg Nicotine (Nicotine Patch Removal) 1 removal TD DAILY [facility] Last Admin: 12/09/17 08:59 Dose: 1 removal Olanzapine (Zyprexa) [address] [facility] Vitamin E (Vitamin E) 400 unit PO DAILY [facility] Last Admin: 12/09/17 08:58 Dose: 400 unit Subjective: Patient seen and chart reviewed. Case discussed with treatment team. Patient is pleasant and cooperative at time of rounds, but now appears more restricted/sad and continues to be quite delusional. She was paranoid yesterday re: iPod because felt the screen may be a camera that was watching her. Today says others are using cell phone signals to track her and are intentionally trying to drive her crazy. Attempted to provide education re: bipolar disorder, john and depression but patient returns back to speaking about delusions. She has been adherent with medications to our knowledge but will ask nursing to do mouth checks. Nursing staff report patient continues be delusional/paranoid, but has not had any significant problematic behaviors on the unit. Patient slept 7.5 hours overnight. VSS. Patient is eating well. Psychotropic PRNs required in the past 24 hours: none. Trough VPA level was 53.1 (on Depakote ER 750mg PO q HS.; have since switched to Depakote sprinkles 250mg PO TID per patient request. Start Time: 08:20 Stop Time: 08:40 Mental Status Exam Vitals: Last Vital Signs Temp 98.4 F 12/09/17 08:00 Pulse 86 12/09/17 08:00 Resp 18 12/09/17 08:00 BP 129/67 12/09/17 08:00 Pulse Ox 92 12/09/17 08:00 Height: 1.6 m Weight: 77.3 kg - Mental Status Exam Muscle Strength/Tone: Normal Dressing: Eccentric Grooming: Disheveled Attitude: Cooperative Motor Activity: Normal Eye Contact: Good Speech: Other (continues to be hypertalkative, less pressured than on admission) Volume: Normal Rhythm: Appropriate Rhythm Orientation: Oriented X4 Mood: Neutral Affect: Sad Rate of Thoughts: Appropriate Rate Thought Organization: Circumstantial, Perseverations Associations: Flight of Ideas, Illogical Abstract Reasoning: Intact, able to abstract Computation: Intact Thought Content: Delusions (resolving), Ruminations, Paranoia Perception/Psychotic: Psychotic Current Hallucinations: Visual, Auditory Fund of Knowledge: Enrique aware current events Memory: Other (Unclear whether there may be deficits) Suicidal Ideation: Denies Homicidal Ideation: Denies Insight: Impaired Judgement: Impaired Impulse Control: Fair - Laboratory Result Diagrams: 12/05/17 17:47 12/05/17 17:47 Assessment and Plan (1) Bipolar 1 disorder, mixed, severe Problem details: with psychotic features r/o MNCD Current visit: Yes Status: Acute Will ask nursing to do mouth checks to ensure med compliance. Increased Zyprexa on 12/08. Have asked nursing to complete SLUMS if patient is willing. Hospital Course Summary Disclaimer: The visit summary below is not to be considered part of the above Progress Note. Hospital Course: Impression Psychosis Paranoia NAFLD Tobacco dependence Plan Agree with involuntary psychiatric admission under the care of Dr. Hercules for further evaluation and treatment Medical labs from acute stay evaluated and stable. All unremarkable May want to consider CT of brain to rule out underline intracranial disease process Monitor vital signs Tylenol as needed for pain May use lotion topically to sunburn Encourage patient to participate in unit activities and provide a safe environment It does not appear that patient has a PCP. CM and surgical services manager involved. They have filed petition to [facility] Attorney's Office for involuntary tx. Petition 11/28/17 psych note- Pt refusing meds but no behaviors. Continue current care 11/29/17 Psych note- Pt remains paranoid and delusional. Continue current care. 11/30/17 Psych: Patient court-ordered for psychiatric treatment and she agrees to trial of Zyprexa Zydis 5mg PO q HS to start tonight. 12/01/17 Psych: Continue Zyprexa Zydis 5mg PO q HS -- patient prefers to take this medication rather than try another antipsychotic. If she tolerates it will likely start additional mood stabilizer on 12/02. 12/02/17 Psych: Start Depakote ER 750mg PO Q HS to target continued manic symptoms. 12/03/17 Psych: Continue current care with plan to check trough Depakote level on Tuesday 12/05 prior to HS dose. 12/03 Psychiatric care as per Dr. Hercules Paranoia appears to be improving on current regimen. Tylenol as needed for pain Overall, appears medically stable. chart reviewed Encourage patient to participate in unit activities and provide a safe environment. 12/04/17 Psych: Increase Zyprexa to 10mg PO q HS to target psychosis. Will check trough Depakote level tomorrow. 12/05/17 Psych: Will order labs, VPA level this evening and adjust to therapeutic level. Improving overall. Patient requests to switch from Depakote ER to Depakote sprinkles but will wait until VPA level is obtained. 12/06/17 Psych: Trough VPA level 53.1 on 12/05. Will switch from Depakote ER to Depakote sprinkles 250mg PO TID. Patient improving overall; will assess cognition and ability to function independently via SLUMS, DAILY. 12/07/17 Psych: Continue current care; will repeat SLUMS and likely DAILY to assess functionality at home. 12/08/17 Psych: Increase Zyprexa to 15mg PO q HS. Will continue to attempt to get DAILY as patient refused "because she is being sued" and asked the ice carver to come back in 48 hours. 12/09/17 Psych: Will ask nursing to do mouth checks to ensure med compliance. Increased Zyprexa on 12/08. Have asked nursing to complete SLUMS if patient is willing.
--- NOTE | 2017-12-09 15:31 | Progress Note ---
- Date 12/09/17 Subjective: Thao was sitting in the day room watching a movie. She stated that everything is wrong. She also indicated that I couldn't help her. She denied any chest pain or shortness of breath. No abdominal pain or GI complaints. Nursing staff also deny any medical concerns. She has been eating well. Her right lower extremity was slightly erythematous and she states she typically sits outside in the sun with her right leg crossed over her left. She also showed me her forearms, which were also tanned. Objective Vital signs: Temperature 98.4 F 12/09/17 08:00 Pulse Rate 86 12/09/17 08:00 Respiratory Rate 18 12/09/17 08:00 Blood Pressure 129/67 12/09/17 08:00 Pulse Oximetry 92 12/09/17 08:00 Height/Weight/BMI: Height 1.6 m Weight 77.3 kg Body Mass Index 30.3 - Constitutional Present: no acute distress, well nourished, well developed - Routine HEENT Exam Head: Present: normocephalic Eye: Present: PERRL. Absent: conjunctival icterus, scleral injection ENT: Present: mucous membranes moist, oropharynx clear - Routine Respiratory Exam Comments: Coarse bilaterally - Routine Cardiovascular Exam Present: RRR, S1, S2 - Routine Abdominal Exam Present: soft, normoactive bowel sounds, non distended, non tender - Routine Extremities Exam Present: edema (1+ edema bilateral lower extremities) - Routine Skin Exam Present: intact, dry, warm Comments: Per subjective - Routine Neurological Exam Present: alert, moving all extremities, normal speech - Routine Psychiatric Exam Present: cooperative Results - Labs CBC & Chem 7: 12/05/17 17:47 12/05/17 17:47 Assessment and Plan (1) Acute psychosis Current visit: No Status: Acute Assessment and Plan: Impression Psychosis Paranoia NAFLD Tobacco dependence Low normal vitamin B12 level Obesity with BMI 30.3 Plan Medically stable at this point. Labs last done on 12/05/17, unremarkable. Hemoglobin A1c 6.0%. Vitamin B 12, however, is borderline low at 292. Continue on oral vitamin B12. Psychiatric progress notes reviewed. Resuscitation Status: Full Code - Physician Narrative Narrative: Date: 12/09/17 Time: 1528 Hospital Course Summary Disclaimer: The visit summary below is not to be considered part of the above Progress Note. Hospital Course: Impression Psychosis Paranoia NAFLD Tobacco dependence Plan Agree with involuntary psychiatric admission under the care of Dr. Hercules for further evaluation and treatment Medical labs from acute stay evaluated and stable. All unremarkable May want to consider CT of brain to rule out underline intracranial disease process Monitor vital signs Tylenol as needed for pain May use lotion topically to sunburn Encourage patient to participate in unit activities and provide a safe environment It does not appear that patient has a PCP. CM and social services designee involved. They have filed petition to [facility] Attorney's Office for involuntary tx. Petition 11/28/17 psych note- Pt refusing meds but no behaviors. Continue current care 11/29/17 Psych note- Pt remains paranoid and delusional. Continue current care. 11/30/17 Psych: Patient court-ordered for psychiatric treatment and she agrees to trial of Zyprexa Zydis 5mg PO q HS to start tonight. 12/01/17 Psych: Continue Zyprexa Zydis 5mg PO q HS -- patient prefers to take this medication rather than try another antipsychotic. If she tolerates it will likely start additional mood stabilizer on 12/02. 12/02/17 Psych: Start Depakote ER 750mg PO Q HS to target continued manic symptoms. 12/03/17 Psych: Continue current care with plan to check trough Depakote level on Tuesday 12/05 prior to HS dose. 12/03 Psychiatric care as per Dr. Hercules Paranoia appears to be improving on current regimen. Tylenol as needed for pain Overall, appears medically stable. chart reviewed Encourage patient to participate in unit activities and provide a safe environment. 12/04/17 Psych: Increase Zyprexa to 10mg PO q HS to target psychosis. Will check trough Depakote level tomorrow. 12/05/17 Psych: Will order labs, VPA level this evening and adjust to therapeutic level. Improving overall. Patient requests to switch from Depakote ER to Depakote sprinkles but will wait until VPA level is obtained. 12/06/17 Psych: Trough VPA level 53.1 on 12/05. Will switch from Depakote ER to Depakote sprinkles 250mg PO TID. Patient improving overall; will assess cognition and ability to function independently via SLUMS, DAILY. 12/07/17 Psych: Continue current care; will repeat SLUMS and likely DAILY to assess functionality at home. 12/08/17 Psych: Increase Zyprexa to 15mg PO q HS. Will continue to attempt to get DAILY as patient refused "because she is being sued" and asked the resident associate to come back in 48 hours. 12/09/17 Psych: Will ask nursing to do mouth checks to ensure med compliance. Increased Zyprexa on 12/08. Have asked nursing to complete SLUMS if patient is willing. 12/09/17 Medically stable at this point. Labs last done on 12/05/17, unremarkable. Hemoglobin A1c 6.0%. Vitamin B 12, however, is borderline low at 292. Continue on oral vitamin B12. Psychiatric progress notes reviewed.
[2017-12-09] MEDS ORDERED: OLANZapine 5 MG TABLET PO SCH (21:00)
[2017-12-10] MEDS: CYANOCOBALAMIN (B-12) 500mcg TABLET PO SCH (09:43)
[2017-12-10] MEDS: VITAMIN E 400 UNIT CAPSULE PO SCH (09:43)
[2017-12-10] MEDS: DIVALPROEX SPRINKLE 125 MG CAPSULE PO SCH ×3 (09:43→20:26)
[2017-12-10] MEDS: NICOTINE 14 MG PATCH TD SCH (09:45)
[2017-12-10] MEDS: NICOTINE PATCH REMOVAL TD SCH (09:46)
--- NOTE | 2017-12-10 14:49 | Neuropsych Progress Note ---
[facility] Subjective Date: 12/10/17 - Sujective/Severity of Illness Medications: Acetaminophen (Tylenol) 500 mg PO Q5H PRN PRN Reason: Discomfort Artificial Tears (Refresh Classic) 1 drop EACH EYE PRN PRN PRN Reason: PRN DRY EYES Last Admin: 12/08/17 11:10 Dose: 1 drop Cyanocobalamin (Vit. B-12) 1,000 mcg PO DAILY [facility] Last Admin: 12/10/17 09:43 Dose: 1,000 mcg Divalproex Sodium (Depakote Sprinkle) 250 mg PO TID [facility] Last Admin: 12/10/17 09:43 Dose: 250 mg Haloperidol (Haldol) 0.5 mg PO Q6H PRN PRN Reason: Extreme agitation Last Admin: 11/28/17 12:08 Dose: 0.5 mg Haloperidol Lactate (Haldol) 0.5 mg IM Q6H PRN PRN Reason: Extreme agitation Ibuprofen (Motrin) 400 mg PO Q4H PRN PRN Reason: Pain Lorazepam (Ativan) 1 mg PO Q6H PRN Lorazepam (Ativan) 0.5 mg PO Q6H PRN PRN Reason: Extreme agitation Last Admin: 11/30/17 16:12 Dose: 0.5 mg Lorazepam (Ativan Inj) 0.5 mg IM Q6H PRN PRN Reason: Extreme agitation Nicotine (Nicoderm) 14 mg TD DAILY [facility] Last Admin: 12/10/17 09:45 Dose: 14 mg Nicotine (Nicotine Patch Removal) 1 removal TD DAILY [facility] Last Admin: 12/10/17 09:46 Dose: 1 removal Olanzapine (Zyprexa) 15 mg PO HS [facility] Last Admin: 12/09/17 20:14 Dose: 15 mg Vitamin E (Vitamin E) 400 unit PO DAILY [facility] Last Admin: 12/10/17 09:43 Dose: 400 unit Subjective: Patient seen and chart reviewed. Case discussed with treatment team. Patient is pleasant and cooperative at time of rounds, but continues to be paranoid. She has refused her DAILY twice now, in part because she doesn't want to leave our unit because she feels safe here. She is also adamant that she does not feels safe returning to her apartment and perseverates on the people there who are trying to scare her. She has been adherent with medications to our knowledge but have asked nursing to do mouth checks. Nursing staff report patient continues be delusional/paranoid, but has not had any significant problematic behaviors on the unit. Patient slept 7.5 hours overnight. VSS. Patient is eating well. Psychotropic PRNs required in the past 24 hours: none. Trough VPA level was 53.1 (on Depakote ER 750mg PO q HS.; have since switched to Depakote sprinkles 250mg PO TID per patient request. Start Time: 12:00 Stop Time: 12:20 Mental Status Exam Vitals: Last Vital Signs Temp 96.5 F L 12/10/17 08:00 Pulse 76 12/10/17 08:00 Resp 16 12/10/17 08:00 BP 143/68 H 12/10/17 08:00 Pulse Ox 94 12/10/17 08:00 Height: 1.6 m Weight: 80.2 kg - Mental Status Exam Muscle Strength/Tone: Normal Dressing: Eccentric Grooming: Disheveled Attitude: Uncooperative (in regards to DAILY, planning) Motor Activity: Normal Eye Contact: Good Speech: Other (continues to be hypertalkative, less pressured than on admission) Volume: Normal Rhythm: Appropriate Rhythm Orientation: Oriented X4 Mood: Neutral Affect: Sad, Blunted Rate of Thoughts: Appropriate Rate Thought Organization: Circumstantial, Perseverations Associations: Illogical Abstract Reasoning: Intact, able to abstract Computation: Intact Thought Content: Delusions, Ruminations, Paranoia Perception/Psychotic: Psychotic (decreasing) Current Hallucinations: Visual, Auditory Fund of Knowledge: Enrique aware current events Memory: Other (Unclear whether there may be deficits) Suicidal Ideation: Denies Homicidal Ideation: Denies Insight: Impaired Judgement: Impaired Impulse Control: Fair - Laboratory Result Diagrams: 12/05/17 17:47 12/05/17 17:47 Assessment and Plan (1) Bipolar 1 disorder, mixed, severe Problem details: with psychotic features r/o MNCD Current visit: Yes Status: Acute Increase Zyprexa to 20mg PO q HS and monitor response. Hospital Course Summary Disclaimer: The visit summary below is not to be considered part of the above Progress Note. Hospital Course: Impression Psychosis Paranoia NAFLD Tobacco dependence Plan Agree with involuntary psychiatric admission under the care of Dr. Hercules for further evaluation and treatment Medical labs from acute stay evaluated and stable. All unremarkable May want to consider CT of brain to rule out underline intracranial disease process Monitor vital signs Tylenol as needed for pain May use lotion topically to sunburn Encourage patient to participate in unit activities and provide a safe environment It does not appear that patient has a PCP. CM and director professional services involved. They have filed petition to [facility] Attorney's Office for involuntary tx. Petition 11/28/17 psych note- Pt refusing meds but no behaviors. Continue current care 11/29/17 Psych note- Pt remains paranoid and delusional. Continue current care. 11/30/17 Psych: Patient court-ordered for psychiatric treatment and she agrees to trial of Zyprexa Zydis 5mg PO q HS to start tonight. 12/01/17 Psych: Continue Zyprexa Zydis 5mg PO q HS -- patient prefers to take this medication rather than try another antipsychotic. If she tolerates it will likely start additional mood stabilizer on 12/02. 12/02/17 Psych: Start Depakote ER 750mg PO Q HS to target continued manic symptoms. 12/03/17 Psych: Continue current care with plan to check trough Depakote level on Tuesday 12/05 prior to HS dose. 12/03 Psychiatric care as per Dr. Hercules Paranoia appears to be improving on current regimen. Tylenol as needed for pain Overall, appears medically stable. chart reviewed Encourage patient to participate in unit activities and provide a safe environment. 12/04/17 Psych: Increase Zyprexa to 10mg PO q HS to target psychosis. Will check trough Depakote level tomorrow. 12/05/17 Psych: Will order labs, VPA level this evening and adjust to therapeutic level. Improving overall. Patient requests to switch from Depakote ER to Depakote sprinkles but will wait until VPA level is obtained. 12/06/17 Psych: Trough VPA level 53.1 on 12/05. Will switch from Depakote ER to Depakote sprinkles 250mg PO TID. Patient improving overall; will assess cognition and ability to function independently via SLUMS, DAILY. 12/07/17 Psych: Continue current care; will repeat SLUMS and likely DAILY to assess functionality at home. 12/08/17 Psych: Increase Zyprexa to 15mg PO q HS. Will continue to attempt to get DAILY as patient refused "because she is being sued" and asked the baby counselor to come back in 48 hours. 12/09/17 Psych: Will ask nursing to do mouth checks to ensure med compliance. Increased Zyprexa on 12/08. Have asked nursing to complete SLUMS if patient is willing. 12/09/17 Medically stable at this point. Labs last done on 12/05/17, unremarkable. Hemoglobin A1c 6.0%. Vitamin B 12, however, is borderline low at 292. Continue on oral vitamin B12. Psychiatric progress notes reviewed. 12/10/17 Psych: Increase Zyprexa to 20mg PO q HS and monitor response.
[2017-12-10] MEDS ORDERED: OLANZapine 5 MG TABLET PO SCH (14:50)
[2017-12-11] MEDS: NICOTINE 14 MG PATCH TD SCH (09:18)
[2017-12-11] MEDS: CYANOCOBALAMIN (B-12) 500mcg TABLET PO SCH (09:18)
[2017-12-11] MEDS: DIVALPROEX SPRINKLE 125 MG CAPSULE PO SCH ×4 (09:18→20:05)
[2017-12-11] MEDS: VITAMIN E 400 UNIT CAPSULE PO SCH (09:19)
[2017-12-11] MEDS: NICOTINE PATCH REMOVAL TD SCH (09:19)
--- NOTE | 2017-12-11 11:12 | Neuropsych Progress Note ---
[facility] Subjective Date: 12/11/17 - Sujective/Severity of Illness Medications: Acetaminophen (Tylenol) 500 mg PO Q5H PRN PRN Reason: Discomfort Artificial Tears (Refresh Classic) 1 drop EACH EYE PRN PRN PRN Reason: PRN DRY EYES Last Admin: 12/08/17 11:10 Dose: 1 drop Cyanocobalamin (Vit. B-12) 1,000 mcg PO DAILY [facility] Last Admin: 12/11/17 09:18 Dose: 1,000 mcg Divalproex Sodium (Depakote Sprinkle) 250 mg PO TID [facility] Last Admin: 12/11/17 09:18 Dose: 250 mg Haloperidol (Haldol) 0.5 mg PO Q6H PRN PRN Reason: Extreme agitation Last Admin: 11/28/17 12:08 Dose: 0.5 mg Haloperidol Lactate (Haldol) 0.5 mg IM Q6H PRN PRN Reason: Extreme agitation Ibuprofen (Motrin) 400 mg PO Q4H PRN PRN Reason: Pain Lorazepam (Ativan) 1 mg PO Q6H PRN Lorazepam (Ativan) 0.5 mg PO Q6H PRN PRN Reason: Extreme agitation Last Admin: 11/30/17 16:12 Dose: 0.5 mg Lorazepam (Ativan Inj) 0.5 mg IM Q6H PRN PRN Reason: Extreme agitation Nicotine (Nicoderm) 14 mg TD DAILY [facility] Last Admin: 12/11/17 09:18 Dose: 14 mg Nicotine (Nicotine Patch Removal) 1 removal TD DAILY [facility] Last Admin: 12/11/17 09:19 Dose: 1 removal Olanzapine (Zyprexa Zydis) 20 mg PO [facility] Vitamin E (Vitamin E) 400 unit PO DAILY [facility] Last Admin: 12/11/17 09:19 Dose: 400 unit Subjective: Patient seen and chart reviewed. Case discussed with treatment team. Patient is pleasant and cooperative at time of rounds, but is sitting in her room and is slightly tearful. She says that she is sad over the DAILY but she doesn't know her score or what it said specifically. (SW reported that patient does need some assistance, kristi. with finances.) Patient is adamant that she does not want to return to her apartment. She has been adherent with medications. She Nursing staff report patient continues be delusional/paranoid, but has not had any significant problematic behaviors on the unit. Patient slept 7.5 hours overnight. VSS. Patient is eating well. Psychotropic PRNs required in the past 24 hours: none. Trough VPA level was 53.1 (on Depakote ER 750mg PO q HS.; have since switched to Depakote sprinkles 250mg PO TID per patient request. Start Time: 07:00 Stop Time: 07:20 Mental Status Exam Vitals: Last Vital Signs Temp 96.8 F 12/11/17 08:00 Pulse 79 12/11/17 08:00 Resp 14 12/11/17 08:00 BP 142/69 H 12/11/17 08:00 Pulse Ox 94 12/11/17 08:00 Height: 1.6 m Weight: 80.2 kg - Mental Status Exam Muscle Strength/Tone: Normal Dressing: Eccentric Grooming: Disheveled Attitude: Cooperative Motor Activity: Normal Eye Contact: Good Speech: Other (continues to be hypertalkative, less pressured than on admission) Volume: Normal Rhythm: Appropriate Rhythm Orientation: Oriented X4 Mood: Other (sad) Affect: Sad, Tearful Rate of Thoughts: Appropriate Rate Thought Organization: Circumstantial, Perseverations Associations: Illogical Abstract Reasoning: Intact, able to abstract Computation: Intact Thought Content: Delusions, Ruminations, Paranoia Perception/Psychotic: Psychotic (decreasing) Current Hallucinations: Visual, Auditory Fund of Knowledge: Enrique aware current events Memory: Poor-recent, Other (SLUMS ) Suicidal Ideation: Denies Homicidal Ideation: Denies Insight: Impaired Judgement: Impaired Impulse Control: Fair - Laboratory Result Diagrams: 12/05/17 17:47 12/05/17 17:47 Assessment and Plan (1) Bipolar 1 disorder, mixed, severe Problem details: with psychotic features r/o MNCD Current visit: Yes Status: Acute Will switch to Zydis formulation and likely check VPA level on Thursday. Hospital Course Summary Disclaimer: The visit summary below is not to be considered part of the above Progress Note. Hospital Course: Impression Psychosis Paranoia NAFLD Tobacco dependence Plan Agree with involuntary psychiatric admission under the care of Dr. Hercules for further evaluation and treatment Medical labs from acute stay evaluated and stable. All unremarkable May want to consider CT of brain to rule out underline intracranial disease process Monitor vital signs Tylenol as needed for pain May use lotion topically to sunburn Encourage patient to participate in unit activities and provide a safe environment It does not appear that patient has a PCP. CM and associate director career services involved. They have filed petition to [facility] Attorney's Office for involuntary tx. Petition 11/28/17 psych note- Pt refusing meds but no behaviors. Continue current care 11/29/17 Psych note- Pt remains paranoid and delusional. Continue current care. 11/30/17 Psych: Patient court-ordered for psychiatric treatment and she agrees to trial of Zyprexa Zydis 5mg PO q HS to start tonight. 12/01/17 Psych: Continue Zyprexa Zydis 5mg PO q HS -- patient prefers to take this medication rather than try another antipsychotic. If she tolerates it will likely start additional mood stabilizer on 12/02. 12/02/17 Psych: Start Depakote ER 750mg PO Q HS to target continued manic symptoms. 12/03/17 Psych: Continue current care with plan to check trough Depakote level on Tuesday 12/05 prior to HS dose. 12/03 Psychiatric care as per Dr. Hercules Paranoia appears to be improving on current regimen. Tylenol as needed for pain Overall, appears medically stable. chart reviewed Encourage patient to participate in unit activities and provide a safe environment. 12/04/17 Psych: Increase Zyprexa to 10mg PO q HS to target psychosis. Will check trough Depakote level tomorrow. 12/05/17 Psych: Will order labs, VPA level this evening and adjust to therapeutic level. Improving overall. Patient requests to switch from Depakote ER to Depakote sprinkles but will wait until VPA level is obtained. 12/06/17 Psych: Trough VPA level 53.1 on 12/05. Will switch from Depakote ER to Depakote sprinkles 250mg PO TID. Patient improving overall; will assess cognition and ability to function independently via SLUMS, DAILY. 12/07/17 Psych: Continue current care; will repeat SLUMS and likely DAILY to assess functionality at home. 12/08/17 Psych: Increase Zyprexa to 15mg PO q HS. Will continue to attempt to get DAILY as patient refused "because she is being sued" and asked the electrical accessories ii assembler to come back in 48 hours. 12/09/17 Psych: Will ask nursing to do mouth checks to ensure med compliance. Increased Zyprexa on 12/08. Have asked nursing to complete SLUMS if patient is willing. 12/09/17 Medically stable at this point. Labs last done on 12/05/17, unremarkable. Hemoglobin A1c 6.0%. Vitamin B 12, however, is borderline low at 292. Continue on oral vitamin B12. Psychiatric progress notes reviewed. 12/10/17 Psych: Increase Zyprexa to 20mg PO q HS and monitor response. 12/11/17 Psych: Will switch to Zydis formulation and likely check VPA level on Thursday after switch to sprinkles.
[2017-12-11] MEDS: OLANZapine ODT 5 MG TABLET PO SCH (20:05)
--- NOTE | 2017-12-12 11:47 | Neuropsych Progress Note ---
[facility] Subjective Date: 12/12/17 - Sujective/Severity of Illness Medications: Acetaminophen (Tylenol) 500 mg PO Q5H PRN PRN Reason: Discomfort Artificial Tears (Refresh Classic) 1 drop EACH EYE PRN PRN PRN Reason: PRN DRY EYES Last Admin: 12/08/17 11:10 Dose: 1 drop Cyanocobalamin (Vit. B-12) 1,000 mcg PO DAILY [facility] Last Admin: 12/11/17 09:18 Dose: 1,000 mcg Divalproex Sodium (Depakote Sprinkle) 250 mg PO TID [facility] Last Admin: 12/11/17 20:05 Dose: 250 mg Haloperidol (Haldol) 0.5 mg PO Q6H PRN PRN Reason: Extreme agitation Last Admin: 11/28/17 12:08 Dose: 0.5 mg Haloperidol Lactate (Haldol) 0.5 mg IM Q6H PRN PRN Reason: Extreme agitation Ibuprofen (Motrin) 400 mg PO Q4H PRN PRN Reason: Pain Lorazepam (Ativan) 1 mg PO Q6H PRN Lorazepam (Ativan) 0.5 mg PO Q6H PRN PRN Reason: Extreme agitation Last Admin: 11/30/17 16:12 Dose: 0.5 mg Lorazepam (Ativan Inj) 0.5 mg IM Q6H PRN PRN Reason: Extreme agitation Nicotine (Nicoderm) 14 mg TD DAILY [facility] Last Admin: 12/11/17 09:18 Dose: 14 mg Nicotine (Nicotine Patch Removal) 1 removal TD DAILY [facility] Last Admin: 12/11/17 09:19 Dose: 1 removal Olanzapine (Zyprexa Zydis) 20 mg PO HS [facility] Last Admin: 12/11/17 20:05 Dose: 20 mg Vitamin E (Vitamin E) 400 unit PO DAILY [facility] Last Admin: 12/11/17 09:19 Dose: 400 unit Subjective: Patient seen and chart reviewed. Nursing reports pt slept well and has a good appetite. Is not paranoid but is flat. No behaviors. On face to face the pt states she feels "numb". She does report some depression but feels it is mild. She denies any S/I or psychosis. Does refuse Depakote at times. Start Time: 10:30 Stop Time: 10:45 Mental Status Exam Vitals: Last Vital Signs Temp 97.4 F 12/12/17 08:00 Pulse 89 12/12/17 08:00 Resp 16 12/12/17 08:00 BP 122/60 12/12/17 08:00 Pulse Ox 94 12/12/17 08:00 Height: 1.6 m Weight: 80.2 kg - Mental Status Exam Muscle Strength/Tone: Normal Dressing: Eccentric Grooming: Disheveled Attitude: Cooperative Motor Activity: Normal Eye Contact: Good Speech: Other (continues to be hypertalkative, less pressured than on admission) Volume: Normal Rhythm: Appropriate Rhythm Orientation: Oriented X4 Mood: Other (sad) Rate of Thoughts: Appropriate Rate Thought Organization: Circumstantial, Perseverations Associations: Illogical Abstract Reasoning: Intact, able to abstract Computation: Intact Thought Content: Delusions, Ruminations, Paranoia Perception/Psychotic: Psychotic (decreasing) Current Hallucinations: Visual, Auditory Fund of Knowledge: Enrique aware current events Memory: Poor-recent, Other (SLUMS ) Suicidal Ideation: Denies Homicidal Ideation: Denies Insight: Impaired Judgement: Impaired Impulse Control: Fair - Laboratory Result Diagrams: 12/05/17 17:47 12/05/17 17:47 Assessment and Plan (1) Bipolar 1 disorder, mixed, severe Problem details: with psychotic features r/o MNCD Current visit: Yes Status: Acute Hospital Course Summary Disclaimer: The visit summary below is not to be considered part of the above Progress Note. Hospital Course: Impression Psychosis Paranoia NAFLD Tobacco dependence Plan Agree with involuntary psychiatric admission under the care of Dr. Hercules for further evaluation and treatment Medical labs from acute stay evaluated and stable. All unremarkable May want to consider CT of brain to rule out underline intracranial disease process Monitor vital signs Tylenol as needed for pain May use lotion topically to sunburn Encourage patient to participate in unit activities and provide a safe environment It does not appear that patient has a PCP. CM and financial services consultant involved. They have filed petition to [facility] Attorney's Office for involuntary tx. Petition 11/28/17 psych note- Pt refusing meds but no behaviors. Continue current care 11/29/17 Psych note- Pt remains paranoid and delusional. Continue current care. 11/30/17 Psych: Patient court-ordered for psychiatric treatment and she agrees to trial of Zyprexa Zydis 5mg PO q HS to start tonight. 12/01/17 Psych: Continue Zyprexa Zydis 5mg PO q HS -- patient prefers to take this medication rather than try another antipsychotic. If she tolerates it will likely start additional mood stabilizer on 12/02. 12/02/17 Psych: Start Depakote ER 750mg PO Q HS to target continued manic symptoms. 12/03/17 Psych: Continue current care with plan to check trough Depakote level on Tuesday 12/05 prior to HS dose. 12/03 Psychiatric care as per Dr. Hercules Paranivelissea appears to be improving on current regimen. Tylenol as needed for pain Overall, appears medically stable. chart reviewed Encourage patient to participate in unit activities and provide a safe environment. 12/04/17 Psych: Increase Zyprexa to 10mg PO q HS to target psychosis. Will check trough Depakote level tomorrow. 12/05/17 Psych: Will order labs, VPA level this evening and adjust to therapeutic level. Improving overall. Patient requests to switch from Depakote ER to Depakote sprinkles but will wait until VPA level is obtained. 12/06/17 Psych: Trough VPA level 53.1 on 12/05. Will switch from Depakote ER to Depakote sprinkles 250mg PO TID. Patient improving overall; will assess cognition and ability to function independently via SLUMS, DAILY. 12/07/17 Psych: Continue current care; will repeat SLUMS and likely DAILY to assess functionality at home. 12/08/17 Psych: Increase Zyprexa to 15mg PO q HS. Will continue to attempt to get DAILY as patient refused "because she is being sued" and asked the sales representative supervisor to come back in 48 hours. 12/09/17 Psych: Will ask nursing to do mouth checks to ensure med compliance. Increased Zyprexa on 12/08. Have asked nursing to complete SLUMS if patient is willing. 12/09/17 Medically stable at this point. Labs last done on 12/05/17, unremarkable. Hemoglobin A1c 6.0%. Vitamin B 12, however, is borderline low at 292. Continue on oral vitamin B12. Psychiatric progress notes reviewed. 12/10/17 Psych: Increase Zyprexa to 20mg PO q HS and monitor response. 12/11/17 Psych: Will switch to Zydis formulation and likely check VPA level on Thursday after switch to sprinkles. 12/12/17 Psych note- Continue current care. Depakote level in AM
[2017-12-12] MEDS: CYANOCOBALAMIN (B-12) 500mcg TABLET PO SCH (11:51)
[2017-12-12] MEDS: NICOTINE 14 MG PATCH TD SCH (11:51)
[2017-12-12] MEDS: DIVALPROEX SPRINKLE 125 MG CAPSULE PO SCH ×3 (11:51→20:10)
[2017-12-12] MEDS: VITAMIN E 400 UNIT CAPSULE PO SCH (11:52)
[2017-12-12] MEDS: NICOTINE PATCH REMOVAL TD SCH (11:52)
[2017-12-12] MEDS: OLANZapine ODT 5 MG TABLET PO SCH (20:09)
[2017-12-13] MEDS: NICOTINE 14 MG PATCH TD SCH (10:15)
[2017-12-13] MEDS: DIVALPROEX SPRINKLE 125 MG CAPSULE PO SCH ×4 (10:44→23:14)
[2017-12-13] MEDS: CYANOCOBALAMIN (B-12) 500mcg TABLET PO SCH (10:44)
[2017-12-13] MEDS: VITAMIN E 400 UNIT CAPSULE PO SCH (10:44)
[2017-12-13] MEDS: NICOTINE PATCH REMOVAL TD SCH (10:45)
--- NOTE | 2017-12-13 12:00 | Neuropsych Progress Note ---
[facility] Subjective Date: 12/13/17 - Sujective/Severity of Illness Medications: Acetaminophen (Tylenol) 500 mg PO Q5H PRN PRN Reason: Discomfort Artificial Tears (Refresh Classic) 1 drop EACH EYE PRN PRN PRN Reason: PRN DRY EYES Last Admin: 12/08/17 11:10 Dose: 1 drop Cyanocobalamin (Vit. B-12) 1,000 mcg PO DAILY [facility] Last Admin: 12/13/17 10:44 Dose: 1,000 mcg Divalproex Sodium (Depakote Sprinkle) 250 mg PO TID [facility] Last Admin: 12/13/17 10:44 Dose: 250 mg Haloperidol (Haldol) 0.5 mg PO Q6H PRN PRN Reason: Extreme agitation Last Admin: 11/28/17 12:08 Dose: 0.5 mg Haloperidol Lactate (Haldol) 0.5 mg IM Q6H PRN PRN Reason: Extreme agitation Ibuprofen (Motrin) 400 mg PO Q4H PRN PRN Reason: Pain Lorazepam (Ativan) 1 mg PO Q6H PRN Lorazepam (Ativan) 0.5 mg PO Q6H PRN PRN Reason: Extreme agitation Last Admin: 11/30/17 16:12 Dose: 0.5 mg Lorazepam (Ativan Inj) 0.5 mg IM Q6H PRN PRN Reason: Extreme agitation Nicotine (Nicoderm) 14 mg TD DAILY [facility] Last Admin: 12/12/17 11:51 Dose: 14 mg Nicotine (Nicotine Patch Removal) 1 removal TD DAILY [facility] Last Admin: 12/13/17 10:45 Dose: 1 removal Olanzapine (Zyprexa Zydis) 20 mg PO HS [facility] Last Admin: 12/12/17 20:09 Dose: 20 mg Vitamin E (Vitamin E) 400 unit PO DAILY [facility] Last Admin: 12/13/17 10:44 Dose: 400 unit Subjective: Patient seen and chart reviewed. Nursing reports pt has been a little more sedated. Slept 11 hours and has a good appetite. Pt refused 2 doses of Depakote yesterday as she states it makes her feel tired. On face to face the pt states she is doing well. Some depression but she is organized and no paranoia noted. Denies S/I. Start Time: 10:30 Stop Time: 10:45 Mental Status Exam Vitals: Last Vital Signs Temp 97.6 F 12/13/17 09:51 Pulse 76 12/13/17 09:51 Resp 18 12/13/17 09:51 BP 143/66 H 12/13/17 09:51 Pulse Ox 92 12/13/17 09:51 Height: 1.6 m Weight: 80.2 kg - Mental Status Exam Muscle Strength/Tone: Normal Dressing: Eccentric Grooming: Disheveled Attitude: Cooperative Motor Activity: Normal Eye Contact: Good Speech: Other (continues to be hypertalkative, less pressured than on admission) Volume: Normal Rhythm: Appropriate Rhythm Orientation: Oriented X4 Mood: Other (sad) Rate of Thoughts: Appropriate Rate Thought Organization: Circumstantial, Perseverations Associations: Illogical Abstract Reasoning: Intact, able to abstract Computation: Intact Thought Content: Delusions, Ruminations, Paranoia Perception/Psychotic: Psychotic (decreasing) Current Hallucinations: Visual, Auditory Fund of Knowledge: Enrique aware current events Memory: Poor-recent, Other (SLUMS ) Suicidal Ideation: Denies Homicidal Ideation: Denies Insight: Impaired Judgement: Impaired Impulse Control: Fair - Laboratory Result Diagrams: 12/13/17 06:25 12/13/17 06:25 Laboratory Results - last 24 hr 12/13/17 12/13/17 06:25 06:25 WBC 5.3 RBC 4.91 Hgb 15.1 Hct 45.4 MCV 92.5 MCH 30.8 MCHC 33.3 RDW Std Deviation 44.4 Plt Count 159 MPV 10.1 Immature Gran % (Auto) 0.6 H Neut % (Auto) 52.6 Lymph % (Auto) 36.0 Fallon % (Auto) 7.2 Eos % (Auto) 3.0 Baso % (Auto) 0.6 Neut # (Auto) 2.8 Lymph # (Auto) 1.9 Fallon # (Auto) 0.4 Eos # (Auto) 0.2 Baso # (Auto) 0.0 Abs Immat Gran (auto) 0.03 Turbidity < 20 Sodium 137 Potassium 4.3 Chloride 101 Carbon Dioxide 29 Anion Gap 7 BUN 9.0 Creatinine 0.7 GFR Calculation 82 BUN/Creatinine Ratio 13 Glucose 125 H Calculated Osmolality 264 Calcium 9.3 Total Bilirubin 0.30 Conjugated Bilirubin 0.00 Unconjugated Bilirubin 0.40 Icterus Index < 2 AST 28 ALT 22 Alkaline Phosphatase 64 Total Protein 6.3 Albumin 3.4 L Globulin 2.9 Albumin/Globulin Ratio 1.2 Specimen Hemolysis < 15 Valproic Acid 37.2 L Assessment and Plan (1) Bipolar 1 disorder, mixed, severe Problem details: with psychotic features r/o MNCD Current visit: Yes Status: Acute Hospital Course Summary Disclaimer: The visit summary below is not to be considered part of the above Progress Note. Hospital Course: Impression Psychosis Paranoia NAFLD Tobacco dependence Plan Agree with involuntary psychiatric admission under the care of Dr. Hercules for further evaluation and treatment Medical labs from acute stay evaluated and stable. All unremarkable May want to consider CT of brain to rule out underline intracranial disease process Monitor vital signs Tylenol as needed for pain May use lotion topically to sunburn Encourage patient to participate in unit activities and provide a safe environment It does not appear that patient has a PCP. CM and instructional support services director involved. They have filed petition to [facility] Attorney's Office for involuntary tx. Petition 11/28/17 psych note- Pt refusing meds but no behaviors. Continue current care 11/29/17 Psych note- Pt remains paranoid and delusional. Continue current care. 11/30/17 Psych: Patient court-ordered for psychiatric treatment and she agrees to trial of Zyprexa Zydis 5mg PO q HS to start tonight. 12/01/17 Psych: Continue Zyprexa Zydis 5mg PO q HS -- patient prefers to take this medication rather than try another antipsychotic. If she tolerates it will likely start additional mood stabilizer on 12/02. 12/02/17 Psych: Start Depakote ER 750mg PO Q HS to target continued manic symptoms. 12/03/17 Psych: Continue current care with plan to check trough Depakote level on Tuesday 12/05 prior to HS dose. 12/03 Psychiatric care as per Dr. Hercules Paranoia appears to be improving on current regimen. Tylenol as needed for pain Overall, appears medically stable. chart reviewed Encourage patient to participate in unit activities and provide a safe environment. 12/04/17 Psych: Increase Zyprexa to 10mg PO q HS to target psychosis. Will check trough Depakote level tomorrow. 12/05/17 Psych: Will order labs, VPA level this evening and adjust to therapeutic level. Improving overall. Patient requests to switch from Depakote ER to Depakote sprinkles but will wait until VPA level is obtained. 12/06/17 Psych: Trough VPA level 53.1 on 12/05. Will switch from Depakote ER to Depakote sprinkles 250mg PO TID. Patient improving overall; will assess cognition and ability to function independently via SLUMS, DAILY. 12/07/17 Psych: Continue current care; will repeat SLUMS and likely DAILY to assess functionality at home. 12/08/17 Psych: Increase Zyprexa to 15mg PO q HS. Will continue to attempt to get DAILY as patient refused "because she is being sued" and asked the launch steward to come back in 48 hours. 12/09/17 Psych: Will ask nursing to do mouth checks to ensure med compliance. Increased Zyprexa on 12/08. Have asked nursing to complete SLUMS if patient is willing. 12/09/17 Medically stable at this point. Labs last done on 12/05/17, unremarkable. Hemoglobin A1c 6.0%. Vitamin B 12, however, is borderline low at 292. Continue on oral vitamin B12. Psychiatric progress notes reviewed. 12/10/17 Psych: Increase Zyprexa to 20mg PO q HS and monitor response. 12/11/17 Psych: Will switch to Zydis formulation and likely check VPA level on Thursday after switch to sprinkles. 12/12/17 Psych note- Continue current care. Depakote level in AM 12/13/17 Psych note- Pt appears more sedated. has been refusing Depakote. Will discuss with Dr. Hercules
--- NOTE | 2017-12-13 14:06 | Progress Note ---
- Date 12/13/17 Subjective: RN called today to report some progressive changes to left lower eyelid. Patient was seen due to that concern. She does have some redness, thickening and discoloration of left lower eyelid. She states she has been using "QTips and Vaseline" in her eye at home. She states this has been going on "about a month." Denies vision changes. Reports some sort of procedure as a child on this eye, and last eye exam was "1998 in [place]." No itching. She does have admit some discharge in the mornings at times. She was noted to have significant sunburn upon initial admission. She reports that she needs an antibiotic. When I asked why, she states that she believes she has "blood poisoning" because she had a "recent viral infection." She cannot tell me where she thinks she has had an infection. She is a bit coarse, she states this has been going on "for a couple of years." Denies new cough or congestion. She does have significant halitosis- denies pain of tongue or with swallowing. Denies any mouth pain. She reports that she is eating "chicken salad and egg salad" due to her concerns for blood poisoning, indicates that she is changing her diet so she can be more healthy. She remains a poor historian. Objective Vital signs: Temperature 97.6 F 12/13/17 09:51 Pulse Rate 76 12/13/17 09:51 Respiratory Rate 18 12/13/17 09:51 Blood Pressure 143/66 H 12/13/17 09:51 Pulse Oximetry 92 12/13/17 09:51 Height/Weight/BMI: Height 1.6 m Weight 80.2 kg Body Mass Index 30.3 - Constitutional Present: no acute distress, average body habitus, disheveled, cooperative - Routine HEENT Exam Head: Present: normocephalic, atraumatic Eye: Present: EOMI, PERRL, conjunctivae pink, periorbital swelling (Left lower lid with raised area on lid with whitish color. Inner lid is pink and swollen. Sclera is normal. No obvious drainage. Inner canthus is a bit red as well. ) ENT: Present: mucous membranes dry (Significant Halitosis. Brown discoloration of tongue with caking. ) - Routine Respiratory Exam Present: wheezes (Faint occasional wheezes. Vocal hoarsness, and she sounds a bit congested when speaking. ). Absent: accessory muscle use, dyspnea - Routine Cardiovascular Exam Present: RRR, S1, S2, no murmur - Routine Abdominal Exam Present: soft, normoactive bowel sounds, non distended, non tender - Routine Extremities Exam Present: no edema - Routine Musculoskeletal Exam Musculoskeletal: Present: moving extremities well - Routine Skin Exam Present: intact, dry, warm - Routine Neurological Exam Present: alert, moving all extremities - Routine Psychiatric Exam Present: cooperative, paranoid. Absent: good insight, good judgment Results - Labs CBC & Chem 7: 12/13/17 06:25 12/13/17 06:25 - Imaging and Cardiology CT scan - head Additional comments: IMPRESSION: No acute intracranial abnormality or hemorrhage. . Assessment and Plan (1) Acute psychosis Current visit: No Status: Acute Assessment and Plan: Impression Psychosis Paranoia NAFLD Tobacco dependence Low normal vitamin B12 level Obesity with BMI 30.3 Left eye lid inflammation Suspect bronchitis Halitosis with vocal hoarseness Plan 12/13/17 Suspect pt. could have experienced sunburn on her eyelid. Due to reported drainage, will start antibiotic/steroid eyedrops and apply warm compresses. If no improvement, could consider ophthalmology or plastics consult. Severe halitosis-treat for possible thrush. Vocal hoarseness/wheezy- COPD? Will order PRN ventolin. If no improvement, may need ENT consult as OP to evaluate halitosis and vocal changes. Labs reviewed. No evidence of infection- suspect concern due to underlying paranoia/psychosis. Chart is reviewed for collateral information. Resuscitation Status: Full Code - Physician Narrative Narrative: Date: 12/13/17 Time: 1359 Hospital Course Summary Disclaimer: The visit summary below is not to be considered part of the above Progress Note. Hospital Course: Impression Psychosis Paranoia NAFLD Tobacco dependence Plan Agree with involuntary psychiatric admission under the care of Dr. Hercules for further evaluation and treatment Medical labs from acute stay evaluated and stable. All unremarkable May want to consider CT of brain to rule out underline intracranial disease process Monitor vital signs Tylenol as needed for pain May use lotion topically to sunburn Encourage patient to participate in unit activities and provide a safe environment It does not appear that patient has a PCP. CM and business services analyst involved. They have filed petition to [facility] Attorney's Office for involuntary tx. Petition 11/28/17 psych note- Pt refusing meds but no behaviors. Continue current care 11/29/17 Psych note- Pt remains paranoid and delusional. Continue current care. 11/30/17 Psych: Patient court-ordered for psychiatric treatment and she agrees to trial of Zyprexa Zydis 5mg PO q HS to start tonight. 12/01/17 Psych: Continue Zyprexa Zydis 5mg PO q HS -- patient prefers to take this medication rather than try another antipsychotic. If she tolerates it will likely start additional mood stabilizer on 12/02. 12/02/17 Psych: Start Depakote ER 750mg PO Q HS to target continued manic symptoms. 12/03/17 Psych: Continue current care with plan to check trough Depakote level on Tuesday 12/05 prior to HS dose. 12/03 Psychiatric care as per Dr. Hercules Paranoia appears to be improving on current regimen. Tylenol as needed for pain Overall, appears medically stable. chart reviewed Encourage patient to participate in unit activities and provide a safe environment. 12/04/17 Psych: Increase Zyprexa to 10mg PO q HS to target psychosis. Will check trough Depakote level tomorrow. 12/05/17 Psych: Will order labs, VPA level this evening and adjust to therapeutic level. Improving overall. Patient requests to switch from Depakote ER to Depakote sprinkles but will wait until VPA level is obtained. 12/06/17 Psych: Trough VPA level 53.1 on 12/05. Will switch from Depakote ER to Depakote sprinkles 250mg PO TID. Patient improving overall; will assess cognition and ability to function independently via SLUMS, DAILY. 12/07/17 Psych: Continue current care; will repeat SLUMS and likely DAILY to assess functionality at home. 12/08/17 Psych: Increase Zyprexa to 15mg PO q HS. Will continue to attempt to get DAILY as patient refused "because she is being sued" and asked the sales exhibitor to come back in 48 hours. 12/09/17 Psych: Will ask nursing to do mouth checks to ensure med compliance. Increased Zyprexa on 12/08. Have asked nursing to complete SLUMS if patient is willing. 12/09/17 Medically stable at this point. Labs last done on 12/05/17, unremarkable. Hemoglobin A1c 6.0%. Vitamin B 12, however, is borderline low at 292. Continue on oral vitamin B12. Psychiatric progress notes reviewed. 12/10/17 Psych: Increase Zyprexa to 20mg PO q HS and monitor response. 12/11/17 Psych: Will switch to Zydis formulation and likely check VPA level on Thursday after switch to sprinkles. 12/12/17 Psych note- Continue current care. Depakote level in AM 12/13/17 Psych note- Pt appears more sedated. has been refusing Depakote. Will discuss with Dr. Hercules 12/13/17 Suspect pt. could have experienced sunburn on her eyelid. Due to reported drainage, will start antibiotic/steroid eyedrops and apply warm compresses. If no improvement, could consider ophthalmology or plastics consult. Severe halitosis-treat for possible thrush. Vocal hoarseness/wheezy- COPD? Will order PRN ventolin. If no improvement, may need ENT consult as OP to evaluate halitosis and vocal changes. Labs reviewed. No evidence of infection- suspect concern due to underlying paranoia/psychosis. Chart is reviewed for collateral information.
[2017-12-13] MEDS ORDERED: ALBUTEROL 2.5mg/3ml (0.083%) NEB AEROSOL PRN (15:00)
[2017-12-13] MEDS: NEOMYCIN LEFT EYE SCH ×3 (18:56→23:14)
[2017-12-13] MEDS: [UNRECOGNIZED DRUG - OTHER] LEFT EYE SCH ×3 (18:56→23:14)
[2017-12-13] MEDS: NYSTATIN 500,000 units/5 ml ORAL LIQUID PO SCH ×3 (18:56→23:14)
[2017-12-13] MEDS: DEXAMETHASONE LEFT EYE SCH ×3 (18:56→23:14)
[2017-12-13] MEDS: OLANZapine ODT 5 MG TABLET PO SCH ×2 (19:42→23:14)
--- NOTE | 2017-12-14 07:45 | XRay Report ---
Indication: Cough PROCEDURE: XR chest 1V: Encounter: Initial Comparison: October 23, 2017 Findings: The lungs are stable in appearance without new focal airspace consolidation. There is no pleural effusion or pneumothorax. The heart size, pulmonary vascularity and mediastinal contours are unchanged. IMPRESSION: Stable appearance of the chest without acute cardiopulmonary disease. .
--- NOTE | 2017-12-14 08:35 | Neuropsych Progress Note ---
[facility] Subjective Date: 12/14/17 - Sujective/Severity of Illness Medications: Acetaminophen (Tylenol) 500 mg PO Q5H PRN PRN Reason: Discomfort Albuterol Sulfate (Proventil Neb (0.083%)) 2.5 mg AEROSOL Q4H PRN PRN Reason: WHEEZE Artificial Tears (Refresh Classic) 1 drop EACH EYE PRN PRN PRN Reason: PRN DRY EYES Last Admin: 12/08/17 11:10 Dose: 1 drop Cyanocobalamin (Vit. B-12) 1,000 mcg PO DAILY [facility] Last Admin: 12/13/17 10:44 Dose: 1,000 mcg Divalproex Sodium (Depakote Sprinkle) 250 mg PO TID [facility] Last Admin: 12/13/17 23:14 Dose: Not Given Haloperidol (Haldol) 0.5 mg PO Q6H PRN PRN Reason: Extreme agitation Last Admin: 11/28/17 12:08 Dose: 0.5 mg Haloperidol Lactate (Haldol) 0.5 mg IM Q6H PRN PRN Reason: Extreme agitation Ibuprofen (Motrin) 400 mg PO Q4H PRN PRN Reason: Pain Lorazepam (Ativan) 1 mg PO Q6H PRN Lorazepam (Ativan) 0.5 mg PO Q6H PRN PRN Reason: Extreme agitation Last Admin: 11/30/17 16:12 Dose: 0.5 mg Lorazepam (Ativan Inj) 0.5 mg IM Q6H PRN PRN Reason: Extreme agitation Neomycin/Polymyxin/Dexamethasone (Maxitrol) 2 drop LEFT EYE QID [facility] Stop: 12/20/17 16:59 Last Admin: 12/13/17 23:14 Dose: Not Given Nicotine (Nicoderm) 14 mg TD DAILY [facility] Last Admin: 12/13/17 10:15 Dose: 14 mg Nicotine (Nicotine Patch Removal) 1 removal TD DAILY [facility] Last Admin: 12/13/17 10:45 Dose: 1 removal Nystatin (Mycostatin) 5 ml PO QID [facility] Stop: 12/20/17 16:59 Last Admin: 12/13/17 23:14 Dose: Not Given Olanzapine (Zyprexa Zydis) 20 mg PO HS [facility] Last Admin: 12/13/17 23:14 Dose: Not Given Vitamin E (Vitamin E) 400 unit PO DAILY [facility] Last Admin: 12/13/17 10:44 Dose: 400 unit Subjective: Patient seen and chart reviewed. Case discussed with treatment team. On interview, patient is hyeprtalkative and more irritable than I have previously seen her. She is being uncooperative with SW in regards to applying for Medicaid, insisting she will not qualify despite having very limited resources. She becomes tearful when talking about her medications and says, " Why does everyone think I am 37 or 42?" She does not have any insight into cognitive deficits or delusions, and is frustrated with my recommendation of med management. Reminded her that she is court-ordered to be here and be treated. She ultimately said, "I'm at your mercy. Do what you think is best." Patient denies any SI, HI. She continues to endorse AH of hearing a conversation about what is going on at her apartment. Patient started refusing Depakote over the weekend as she felt it was making her too sleepy. Nursing staff report patient continues to be delusional and has been isolating more. Patient slept 8 hours overnight. VSS. Patient is eating well. Psychotropic PRNs required in the past 24 hours: none. Start Time: 11:00 Stop Time: 11:20 Mental Status Exam Vitals: Last Vital Signs Temp 97.2 F 12/13/17 21:01 Pulse 94 12/13/17 21:01 Resp 16 12/13/17 21:01 BP 168/76 H 12/13/17 21:01 Pulse Ox 94 12/13/17 21:01 Height: 1.6 m Weight: 80.2 kg - Mental Status Exam Muscle Strength/Tone: Normal Dressing: Eccentric Grooming: Disheveled Attitude: Cooperative Motor Activity: Normal Eye Contact: Good Speech: Other (continues to be hypertalkative, less pressured than on admission) Volume: Normal Rhythm: Appropriate Rhythm Sensory: Alert Orientation: Oriented X4 Mood: Irritable Affect: Tearful Rate of Thoughts: Appropriate Rate Thought Organization: Circumstantial, Perseverations Associations: Illogical Abstract Reasoning: Intact, able to abstract Computation: Intact Thought Content: Delusions, Ruminations, Paranoia Perception/Psychotic: Psychotic (decreased from admission) Current Hallucinations: Auditory Fund of Knowledge: Enrique aware current events Memory: Poor-recent, Other (SLUMS ) Suicidal Ideation: Denies Homicidal Ideation: Denies Insight: Impaired Judgement: Impaired Impulse Control: Poor - Laboratory Result Diagrams: 12/13/17 06:25 12/13/17 06:25 Assessment and Plan (1) Bipolar 1 disorder, mixed, severe Problem details: with psychotic features r/o MNCD Current visit: Yes Status: Acute Will consider changing antipsychotic to medication that is less sedating. For now, will discontinue Depakote sprinkles as level was low, patient has been refusing. Will restart Depakote ER 750mg, which was within therapeutic range at steady state. Hospital Course Summary Disclaimer: The visit summary below is not to be considered part of the above Progress Note. Hospital Course: Impression Psychosis Paranoia NAFLD Tobacco dependence Plan Agree with involuntary psychiatric admission under the care of Dr. Hercules for further evaluation and treatment Medical labs from acute stay evaluated and stable. All unremarkable May want to consider CT of brain to rule out underline intracranial disease process Monitor vital signs Tylenol as needed for pain May use lotion topically to sunburn Encourage patient to participate in unit activities and provide a safe environment It does not appear that patient has a PCP. CM and academic services professional involved. They have filed petition to [facility] Attorney's Office for involuntary tx. Petition 11/28/17 psych note- Pt refusing meds but no behaviors. Continue current care 11/29/17 Psych note- Pt remains paranoid and delusional. Continue current care. 11/30/17 Psych: Patient court-ordered for psychiatric treatment and she agrees to trial of Zyprexa Zydis 5mg PO q HS to start tonight. 12/01/17 Psych: Continue Zyprexa Zydis 5mg PO q HS -- patient prefers to take this medication rather than try another antipsychotic. If she tolerates it will likely start additional mood stabilizer on 12/02. 12/02/17 Psych: Start Depakote ER 750mg PO Q HS to target continued manic symptoms. 12/03/17 Psych: Continue current care with plan to check trough Depakote level on Tuesday 12/05 prior to HS dose. 12/03 Psychiatric care as per Dr. Hercules Paranoia appears to be improving on current regimen. Tylenol as needed for pain Overall, appears medically stable. chart reviewed Encourage patient to participate in unit activities and provide a safe environment. 12/04/17 Psych: Increase Zyprexa to 10mg PO q HS to target psychosis. Will check trough Depakote level tomorrow. 12/05/17 Psych: Will order labs, VPA level this evening and adjust to therapeutic level. Improving overall. Patient requests to switch from Depakote ER to Depakote sprinkles but will wait until VPA level is obtained. 12/06/17 Psych: Trough VPA level 53.1 on 12/05. Will switch from Depakote ER to Depakote sprinkles 250mg PO TID. Patient improving overall; will assess cognition and ability to function independently via SLUMS, DAILY. 12/07/17 Psych: Continue current care; will repeat SLUMS and likely DAILY to assess functionality at home. 12/08/17 Psych: Increase Zyprexa to 15mg PO q HS. Will continue to attempt to get DAILY as patient refused "because she is being sued" and asked the beading installer to come back in 48 hours. 12/09/17 Psych: Will ask nursing to do mouth checks to ensure med compliance. Increased Zyprexa on 12/08. Have asked nursing to complete SLUMS if patient is willing. 12/09/17 Medically stable at this point. Labs last done on 12/05/17, unremarkable. Hemoglobin A1c 6.0%. Vitamin B 12, however, is borderline low at 292. Continue on oral vitamin B12. Psychiatric progress notes reviewed. 12/10/17 Psych: Increase Zyprexa to 20mg PO q HS and monitor response. 12/11/17 Psych: Will switch to Zydis formulation and likely check VPA level on Thursday after switch to sprinkles. 12/12/17 Psych note- Continue current care. Depakote level in AM 12/13/17 Psych note- Pt appears more sedated. has been refusing Depakote. Will discuss with Dr. Hercules 12/13/17 Suspect pt. could have experienced sunburn on her eyelid. Due to reported drainage, will start antibiotic/steroid eyedrops and apply warm compresses. If no improvement, could consider ophthalmology or plastics consult. Severe halitosis-treat for possible thrush. Vocal hoarseness/wheezy- COPD? Will order PRN ventolin. If no improvement, may need ENT consult as OP to evaluate halitosis and vocal changes. Labs reviewed. No evidence of infection- suspect concern due to underlying paranoia/psychosis. Chart is reviewed for collateral information. 12/14/17 Psych: Will consider changing antipsychotic to medication that is less sedating. For now, will discontinue Depakote sprinkles as level was low, patient has been refusing. Will restart Depakote ER 750mg, which was within therapeutic range at steady state.
[2017-12-14] MEDS: NEOMYCIN LEFT EYE SCH ×4 (10:47→20:14)
[2017-12-14] MEDS: [UNRECOGNIZED DRUG - OTHER] LEFT EYE SCH ×4 (10:47→20:14)
[2017-12-14] MEDS: DEXAMETHASONE LEFT EYE SCH ×4 (10:47→20:14)
[2017-12-14] MEDS: NYSTATIN 500,000 units/5 ml ORAL LIQUID PO SCH ×4 (10:47→20:15)
[2017-12-14] MEDS: NICOTINE 14 MG PATCH TD SCH (10:48)
[2017-12-14] MEDS: CYANOCOBALAMIN (B-12) 500mcg TABLET PO SCH (10:50)
[2017-12-14] MEDS: NICOTINE PATCH REMOVAL TD SCH (10:50)
[2017-12-14] MEDS: DIVALPROEX SPRINKLE 125 MG CAPSULE PO SCH (10:50)
[2017-12-14] MEDS: VITAMIN E 400 UNIT CAPSULE PO SCH (10:51)
[2017-12-14] MEDS: OLANZapine ODT 5 MG TABLET PO SCH (20:14)
--- NOTE | 2017-12-15 08:50 | Progress Note ---
- Date 12/15/17 Subjective: Thao was still resting in bed this morning. She woke up briefly, and denied any new complaints. She stated she wanted to go back to sleep and wasn't ready for breakfast. Patient has been pleasant and cooperative. Objective Vital signs: Temperature 97.4 F 12/14/17 19:18 Pulse Rate 83 12/14/17 19:18 Respiratory Rate 20 12/14/17 19:18 Blood Pressure 121/55 12/14/17 19:18 Pulse Oximetry 93 12/14/17 19:18 Height/Weight/BMI: Height 1.6 m Weight 80.2 kg Body Mass Index 30.3 - Constitutional Present: no acute distress, well nourished, well developed - Routine HEENT Exam Head: Present: normocephalic ENT: Present: mucous membranes dry - Routine Respiratory Exam Present: CTA bilaterally - Routine Cardiovascular Exam Present: RRR, S1, S2 - Routine Abdominal Exam Present: soft, normoactive bowel sounds, non tender - Routine Extremities Exam Present: no edema - Routine Skin Exam Present: dry, warm - Routine Neurological Exam Present: normal speech. Absent: alert (drowsy) - Routine Psychiatric Exam Present: cooperative Results - Labs CBC & Chem 7: 12/13/17 06:25 12/13/17 06:25 Assessment and Plan (1) Acute psychosis Current visit: No Status: Acute Assessment and Plan: Impression Psychosis Paranoia NAFLD Tobacco dependence Low normal vitamin B12 level Obesity with BMI 30.3 Left eye lid inflammation Suspect bronchitis Halitosis with vocal hoarseness Plan 12/15/17 Continue treatment for possible eye infection/inflammation with antibiotic/ steroid drops through 12/20. Medically stable. No wheezing on exam this am. Discussed with nursing: No medical concerns at this time. - Physician Narrative Narrative: Date: 12/15/17 Time: 0847 Hospital Course Summary Disclaimer: The visit summary below is not to be considered part of the above Progress Note. Hospital Course: Impression Psychosis Paranoia NAFLD Tobacco dependence Plan Agree with involuntary psychiatric admission under the care of Dr. Herclues for further evaluation and treatment Medical labs from acute stay evaluated and stable. All unremarkable May want to consider CT of brain to rule out underline intracranial disease process Monitor vital signs Tylenol as needed for pain May use lotion topically to sunburn Encourage patient to participate in unit activities and provide a safe environment It does not appear that patient has a PCP. CM and director of tax services involved. They have filed petition to [facility] Attorney's Office for involuntary tx. Petition 11/28/17 psych note- Pt refusing meds but no behaviors. Continue current care 11/29/17 Psych note- Pt remains paranoid and delusional. Continue current care. 11/30/17 Psych: Patient court-ordered for psychiatric treatment and she agrees to trial of Zyprexa Zydis 5mg PO q HS to start tonight. 12/01/17 Psych: Continue Zyprexa Zydis 5mg PO q HS -- patient prefers to take this medication rather than try another antipsychotic. If she tolerates it will likely start additional mood stabilizer on 12/02. 12/02/17 Psych: Start Depakote ER 750mg PO Q HS to target continued manic symptoms. 12/03/17 Psych: Continue current care with plan to check trough Depakote level on Tuesday 12/05 prior to HS dose. 12/03 Psychiatric care as per Dr. Hercules Paranoia appears to be improving on current regimen. Tylenol as needed for pain Overall, appears medically stable. chart reviewed Encourage patient to participate in unit activities and provide a safe environment. 12/04/17 Psych: Increase Zyprexa to 10mg PO q HS to target psychosis. Will check trough Depakote level tomorrow. 12/05/17 Psych: Will order labs, VPA level this evening and adjust to therapeutic level. Improving overall. Patient requests to switch from Depakote ER to Depakote sprinkles but will wait until VPA level is obtained. 12/06/17 Psych: Trough VPA level 53.1 on 12/05. Will switch from Depakote ER to Depakote sprinkles 250mg PO TID. Patient improving overall; will assess cognition and ability to function independently via SLUMS, DAILY. 12/07/17 Psych: Continue current care; will repeat SLUMS and likely DAILY to assess functionality at home. 12/08/17 Psych: Increase Zyprexa to 15mg PO q HS. Will continue to attempt to get DAILY as patient refused "because she is being sued" and asked the reiki practitioner to come back in 48 hours. 12/09/17 Psych: Will ask nursing to do mouth checks to ensure med compliance. Increased Zyprexa on 12/08. Have asked nursing to complete SLUMS if patient is willing. 12/09/17 Medically stable at this point. Labs last done on 12/05/17, unremarkable. Hemoglobin A1c 6.0%. Vitamin B 12, however, is borderline low at 292. Continue on oral vitamin B12. Psychiatric progress notes reviewed. 12/10/17 Psych: Increase Zyprexa to 20mg PO q HS and monitor response. 12/11/17 Psych: Will switch to Zydis formulation and likely check VPA level on Thursday after switch to sprinkles. 12/12/17 Psych note- Continue current care. Depakote level in AM 12/13/17 Psych note- Pt appears more sedated. has been refusing Depakote. Will discuss with Dr. Hercules 12/13/17 Suspect pt. could have experienced sunburn on her eyelid. Due to reported drainage, will start antibiotic/steroid eyedrops and apply warm compresses. If no improvement, could consider ophthalmology or plastics consult. Severe halitosis-treat for possible thrush. Vocal hoarseness/wheezy- COPD? Will order PRN ventolin. If no improvement, may need ENT consult as OP to evaluate halitosis and vocal changes. Labs reviewed. No evidence of infection- suspect concern due to underlying paranoia/psychosis. Chart is reviewed for collateral information. 12/14/17 Psych: Will consider changing antipsychotic to medication that is less sedating. For now, will discontinue Depakote sprinkles as level was low, patient has been refusing. Will restart Depakote ER 750mg, which was within therapeutic range at steady state. 12/15/17 Continue treatment for possible eye infection/inflammation with antibiotic/ steroid drops through 12/20. Medically stable.
[2017-12-15] MEDS: CYANOCOBALAMIN (B-12) 500mcg TABLET PO SCH (09:03)
[2017-12-15] MEDS: NICOTINE 14 MG PATCH TD SCH (09:04)
[2017-12-15] MEDS: [UNRECOGNIZED DRUG - OTHER] LEFT EYE SCH ×5 (09:04→21:26)
[2017-12-15] MEDS: DEXAMETHASONE LEFT EYE SCH ×5 (09:04→21:26)
[2017-12-15] MEDS: NEOMYCIN LEFT EYE SCH ×5 (09:04→21:26)
[2017-12-15] MEDS: NICOTINE PATCH REMOVAL TD SCH (09:05)
[2017-12-15] MEDS: VITAMIN E 400 UNIT CAPSULE PO SCH (09:05)
[2017-12-15] MEDS: NYSTATIN 500,000 units/5 ml ORAL LIQUID PO SCH ×5 (09:05→21:26)
--- NOTE | 2017-12-15 09:24 | Neuropsych Progress Note ---
[facility] Subjective Date: 12/15/17 - Sujective/Severity of Illness Medications: Acetaminophen (Tylenol) 500 mg PO Q5H PRN PRN Reason: Discomfort Albuterol Sulfate (Proventil Neb (0.083%)) 2.5 mg AEROSOL Q4H PRN PRN Reason: WHEEZE Artificial Tears (Refresh Classic) 1 drop EACH EYE PRN PRN PRN Reason: PRN DRY EYES Last Admin: 12/08/17 11:10 Dose: 1 drop Cyanocobalamin (Vit. B-12) 1,000 mcg PO DAILY [facility] Last Admin: 12/15/17 09:03 Dose: 1,000 mcg Divalproex Sodium (Depakote Er) [address] [facility] Last Admin: 12/14/17 20:15 Dose: 750 mg Haloperidol (Haldol) 0.5 mg PO Q6H PRN PRN Reason: Extreme agitation Last Admin: 11/28/17 12:08 Dose: 0.5 mg Haloperidol Lactate (Haldol) 0.5 mg IM Q6H PRN PRN Reason: Extreme agitation Ibuprofen (Motrin) 400 mg PO Q4H PRN PRN Reason: Pain Lorazepam (Ativan) 1 mg PO Q6H PRN Lorazepam (Ativan) 0.5 mg PO Q6H PRN PRN Reason: Extreme agitation Last Admin: 11/30/17 16:12 Dose: 0.5 mg Lorazepam (Ativan Inj) 0.5 mg IM Q6H PRN PRN Reason: Extreme agitation Neomycin/Polymyxin/Dexamethasone (Maxitrol) 2 drop LEFT EYE QID [facility] Stop: 12/20/17 16:59 Last Admin: 12/15/17 09:04 Dose: 2 drop Nicotine (Nicoderm) 14 mg TD DAILY [facility] Last Admin: 12/15/17 09:04 Dose: 14 mg Nicotine (Nicotine Patch Removal) 1 removal TD DAILY [facility] Last Admin: 12/15/17 09:05 Dose: 1 removal Nystatin (Mycostatin) 5 ml PO QID [facility] Stop: 12/20/17 16:59 Last Admin: 12/15/17 09:05 Dose: 5 ml Olanzapine (Zyprexa Zydis) 20 mg PO [facility] Last Admin: 12/14/17 20:14 Dose: 20 mg Vitamin E (Vitamin E) 400 unit PO DAILY [facility] Last Admin: 12/15/17 09:05 Dose: 400 unit Subjective: Patient seen and chart reviewed. Case discussed with treatment team. On interview, patient is brighter and less irritable than when seen yesterday. She is a bit dismissive as she is focused on getting financial information for the SW. She says her mood is "weird" but can't give further detail. She talks about trying to improve her diet. When she is asked about AH, she states, "I can 't answer that." I believe delusions are more prominent than AH at this juncture. Patient denies any SI, HI. Depakote ER was restarted last night. Patient asked nursing if she could take her meds back to her room and was told no, and that she must take them in front of staff. She reported to staff that "she feels like Zyprexa is increasing her depression." Patient slept 6.75 hours overnight. VSS. Patient is eating well. Psychotropic PRNs required in the past 24 hours: none. SW was able to complete Medicaid enriqeu with additional information provided by son. Start Time: 13:00 Stop Time: 13:20 Mental Status Exam Vitals: Last Vital Signs Temp 97.0 F 12/15/17 08:00 Pulse 82 12/15/17 08:00 Resp 18 12/15/17 08:00 BP 129/65 12/15/17 08:00 Pulse Ox 94 12/15/17 08:00 Height: 1.6 m Weight: 80.2 kg - Mental Status Exam Muscle Strength/Tone: Normal Dressing: Eccentric Grooming: Disheveled Attitude: Cooperative Motor Activity: Normal Eye Contact: Good Speech: Other (continues to be hypertalkative, less pressured than on admission) Volume: Normal Rhythm: Appropriate Rhythm Sensory: Alert Orientation: Oriented X4 Mood: Neutral Affect: Relaxed Rate of Thoughts: Appropriate Rate Thought Organization: Circumstantial Associations: Illogical Abstract Reasoning: Intact, able to abstract Computation: Intact Thought Content: Delusions, Ruminations, Paranoia, Somatic Concerns Perception/Psychotic: Psychotic (decreased from admission) Current Hallucinations: Auditory Fund of Knowledge: Enrique aware current events Memory: Poor-recent, Other (SLUMS ) Suicidal Ideation: Denies Homicidal Ideation: Denies Insight: Impaired Judgement: Impaired Impulse Control: Fair - Laboratory Result Diagrams: 12/13/17 06:25 12/13/17 06:25 Assessment and Plan (1) Bipolar 1 disorder, mixed, severe Problem details: with psychotic features r/o MNCD Current visit: Yes Status: Acute Continue current care and monitor response now that patient is back to taking Depakote ER. Seems less sedated during the day. Hospital Course Summary Disclaimer: The visit summary below is not to be considered part of the above Progress Note. Hospital Course: Impression Psychosis Paranoia NAFLD Tobacco dependence Plan Agree with involuntary psychiatric admission under the care of Dr. Hercules for further evaluation and treatment Medical labs from acute stay evaluated and stable. All unremarkable May want to consider CT of brain to rule out underline intracranial disease process Monitor vital signs Tylenol as needed for pain May use lotion topically to sunburn Encourage patient to participate in unit activities and provide a safe environment It does not appear that patient has a PCP. CM and superintendent oil well services involved. They have filed petition to [facility] Attorney's Office for involuntary tx. Petition 11/28/17 psych note- Pt refusing meds but no behaviors. Continue current care 11/29/17 Psych note- Pt remains paranoid and delusional. Continue current care. 11/30/17 Psych: Patient court-ordered for psychiatric treatment and she agrees to trial of Zyprexa Zydis 5mg PO q HS to start tonight. 12/01/17 Psych: Continue Zyprexa Zydis 5mg PO q HS -- patient prefers to take this medication rather than try another antipsychotic. If she tolerates it will likely start additional mood stabilizer on 12/02. 12/02/17 Psych: Start Depakote ER 750mg PO Q HS to target continued manic symptoms. 12/03/17 Psych: Continue current care with plan to check trough Depakote level on Tuesday 12/05 prior to HS dose. 12/03 Psychiatric care as per Dr. Hercules Paranoia appears to be improving on current regimen. Tylenol as needed for pain Overall, appears medically stable. chart reviewed Encourage patient to participate in unit activities and provide a safe environment. 12/04/17 Psych: Increase Zyprexa to 10mg PO q HS to target psychosis. Will check trough Depakote level tomorrow. 12/05/17 Psych: Will order labs, VPA level this evening and adjust to therapeutic level. Improving overall. Patient requests to switch from Depakote ER to Depakote sprinkles but will wait until VPA level is obtained. 12/06/17 Psych: Trough VPA level 53.1 on 12/05. Will switch from Depakote ER to Depakote sprinkles 250mg PO TID. Patient improving overall; will assess cognition and ability to function independently via SLUMS, DAILY. 12/07/17 Psych: Continue current care; will repeat SLUMS and likely DAILY to assess functionality at home. 12/08/17 Psych: Increase Zyprexa to 15mg PO q HS. Will continue to attempt to get DAILY as patient refused "because she is being sued" and asked the preservative filler machine operator to come back in 48 hours. 12/09/17 Psych: Will ask nursing to do mouth checks to ensure med compliance. Increased Zyprexa on 12/08. Have asked nursing to complete SLUMS if patient is willing. 12/09/17 Medically stable at this point. Labs last done on 12/05/17, unremarkable. Hemoglobin A1c 6.0%. Vitamin B 12, however, is borderline low at 292. Continue on oral vitamin B12. Psychiatric progress notes reviewed. 12/10/17 Psych: Increase Zyprexa to 20mg PO q HS and monitor response. 12/11/17 Psych: Will switch to Zydis formulation and likely check VPA level on Thursday after switch to sprinkles. 12/12/17 Psych note- Continue current care. Depakote level in AM 12/13/17 Psych note- Pt appears more sedated. has been refusing Depakote. Will discuss with Dr. Hercules 12/13/17 Suspect pt. could have experienced sunburn on her eyelid. Due to reported drainage, will start antibiotic/steroid eyedrops and apply warm compresses. If no improvement, could consider ophthalmology or plastics consult. Severe halitosis-treat for possible thrush. Vocal hoarseness/wheezy- COPD? Will order PRN ventolin. If no improvement, may need ENT consult as OP to evaluate halitosis and vocal changes. Labs reviewed. No evidence of infection- suspect concern due to underlying paranoia/psychosis. Chart is reviewed for collateral information. 12/14/17 Psych: Will consider changing antipsychotic to medication that is less sedating. For now, will discontinue Depakote sprinkles as level was low, patient has been refusing. Will restart Depakote ER 750mg, which was within therapeutic range at steady state. 12/15/17 Continue treatment for possible eye infection/inflammation with antibiotic/ steroid drops through 12/20. Medically stable. 12/15/17 Psych: Continue current care and monitor response now that patient is back to taking Depakote ER. Seems less sedated during the day.
[2017-12-15] MEDS: OLANZapine ODT 5 MG TABLET PO SCH ×2 (19:47→21:26)
[2017-12-16] MEDS: DEXAMETHASONE LEFT EYE SCH ×5 (08:31→20:39)
[2017-12-16] MEDS: [UNRECOGNIZED DRUG - OTHER] LEFT EYE SCH ×5 (08:31→20:39)
[2017-12-16] MEDS: CYANOCOBALAMIN (B-12) 500mcg TABLET PO SCH (08:31)
[2017-12-16] MEDS: NYSTATIN 500,000 units/5 ml ORAL LIQUID PO SCH ×5 (08:31→20:39)
[2017-12-16] MEDS: NEOMYCIN LEFT EYE SCH ×5 (08:31→20:39)
[2017-12-16] MEDS: NICOTINE PATCH REMOVAL TD SCH (08:32)
[2017-12-16] MEDS: NICOTINE 14 MG PATCH TD SCH (08:32)
[2017-12-16] MEDS: VITAMIN E 400 UNIT CAPSULE PO SCH (08:32)
--- NOTE | 2017-12-16 08:47 | Neuropsych Progress Note ---
[facility] Subjective Date: 12/17/17 - Sujective/Severity of Illness Medications: Acetaminophen (Tylenol) 500 mg PO Q5H PRN PRN Reason: Discomfort Albuterol Sulfate (Proventil Neb (0.083%)) 2.5 mg AEROSOL Q4H PRN PRN Reason: WHEEZE Artificial Tears (Refresh Classic) 1 drop EACH EYE PRN PRN PRN Reason: PRN DRY EYES Last Admin: 12/08/17 11:10 Dose: 1 drop Cyanocobalamin (Vit. B-12) 1,000 mcg PO DAILY [facility] Last Admin: 12/16/17 08:31 Dose: 1,000 mcg Divalproex Sodium (Depakote Er) 750 mg PO [facility] Last Admin: 12/15/17 21:26 Dose: Not Given Haloperidol (Haldol) 0.5 mg PO Q6H PRN PRN Reason: Extreme agitation Last Admin: 11/28/17 12:08 Dose: 0.5 mg Haloperidol Lactate (Haldol) 0.5 mg IM Q6H PRN PRN Reason: Extreme agitation Ibuprofen (Motrin) 400 mg PO Q4H PRN PRN Reason: Pain Lorazepam (Ativan) 1 mg PO Q6H PRN Lorazepam (Ativan) 0.5 mg PO Q6H PRN PRN Reason: Extreme agitation Last Admin: 11/30/17 16:12 Dose: 0.5 mg Lorazepam (Ativan Inj) 0.5 mg IM Q6H PRN PRN Reason: Extreme agitation Neomycin/Polymyxin/Dexamethasone (Maxitrol) 2 drop LEFT EYE QID [facility] Stop: 12/20/17 16:59 Last Admin: 12/16/17 08:31 Dose: 2 drop Nicotine (Nicoderm) 14 mg TD DAILY [facility] Last Admin: 12/16/17 08:32 Dose: 14 mg Nicotine (Nicotine Patch Removal) 1 removal TD DAILY [facility] Last Admin: 12/16/17 08:32 Dose: 1 removal Nystatin (Mycostatin) 5 ml PO QID [facility] Stop: 12/20/17 16:59 Last Admin: 12/16/17 08:31 Dose: 5 ml Olanzapine (Zyprexa Zydis) 20 mg PO [facility] Last Admin: 12/15/17 21:26 Dose: Not Given Vitamin E (Vitamin E) 400 unit PO DAILY [facility] Last Admin: 12/16/17 08:32 Dose: 400 unit Subjective: Patient seen and chart reviewed. Case discussed with treatment team. On interview, patient is in her room and says "life is awful" because she doesn' t know where her important papers are She continues to believe the people at her apartment have something to do with this. Patient does have a folder of important papers that were brought for her but feels she is missing her original certificate. She continues to endorse AH of conversations but insists they're real. Patient denies any SI, HI. Nursing staff report patient has been pleasant and cooperative overall, with less isolating to her room. She did have some intermittent irritability when trying to participate in group. She endorsed having AH but that these significantly decreased in frequency/intensity. Patient slept 8.5 hours overnight. VSS. Patient is eating well. Psychotropic PRNs required in the past 24 hours: none. SW was able to complete Medicaid enrique with additional information provided by son. Start Time: 12:00 Stop Time: 12:20 Mental Status Exam Vitals: Last Vital Signs Temp 97.2 F 12/16/17 07:24 Pulse 81 12/16/17 07:24 Resp 16 12/16/17 07:24 BP 137/66 12/16/17 07:24 Pulse Ox 92 12/16/17 07:24 Height: 1.6 m Weight: 81.9 kg - Mental Status Exam Muscle Strength/Tone: Normal Dressing: Eccentric Grooming: Disheveled Attitude: Cooperative Motor Activity: Normal Eye Contact: Good Speech: Other (continues to be hypertalkative, less pressured than on admission) Volume: Normal Rhythm: Appropriate Rhythm Orientation: Oriented X4 Mood: Neutral Affect: Blunted Rate of Thoughts: Appropriate Rate Thought Organization: Circumstantial Associations: Illogical Abstract Reasoning: Intact, able to abstract Computation: Intact Thought Content: Delusions, Ruminations, Paranoia, Somatic Concerns Perception/Psychotic: Psychotic (decreased from admission) Current Hallucinations: Auditory Fund of Knowledge: Enrique aware current events Memory: Poor-recent, Other (SLUMS ) Suicidal Ideation: Denies Homicidal Ideation: Denies Insight: Impaired Judgement: Impaired Impulse Control: Fair - Laboratory Result Diagrams: 12/13/17 06:25 12/13/17 06:25 Assessment and Plan (1) Bipolar 1 disorder, mixed, severe Problem details: with psychotic features r/o MNCD Current visit: Yes Status: Acute Continue current care as patient is doing well. Will order EKG. Hospital Course Summary Disclaimer: The visit summary below is not to be considered part of the above Progress Note. Hospital Course: Impression Psychosis Paranoia NAFLD Tobacco dependence Plan Agree with involuntary psychiatric admission under the care of Dr. Hercules for further evaluation and treatment Medical labs from acute stay evaluated and stable. All unremarkable May want to consider CT of brain to rule out underline intracranial disease process Monitor vital signs Tylenol as needed for pain May use lotion topically to sunburn Encourage patient to participate in unit activities and provide a safe environment It does not appear that patient has a PCP. CM and rehabilitation services manager involved. They have filed petition to [facility] Attorney's Office for involuntary tx. Petition 11/28/17 psych note- Pt refusing meds but no behaviors. Continue current care 11/29/17 Psych note- Pt remains paranoid and delusional. Continue current care. 11/30/17 Psych: Patient court-ordered for psychiatric treatment and she agrees to trial of Zyprexa Zydis 5mg PO q HS to start tonight. 12/01/17 Psych: Continue Zyprexa Zydis 5mg PO q HS -- patient prefers to take this medication rather than try another antipsychotic. If she tolerates it will likely start additional mood stabilizer on 12/02. 12/02/17 Psych: Start Depakote ER 750mg PO Q HS to target continued manic symptoms. 12/03/17 Psych: Continue current care with plan to check trough Depakote level on Tuesday 12/05 prior to HS dose. 12/03 Psychiatric care as per Dr. Hercules Paranoia appears to be improving on current regimen. Tylenol as needed for pain Overall, appears medically stable. chart reviewed Encourage patient to participate in unit activities and provide a safe environment. 12/04/17 Psych: Increase Zyprexa to 10mg PO q HS to target psychosis. Will check trough Depakote level tomorrow. 12/05/17 Psych: Will order labs, VPA level this evening and adjust to therapeutic level. Improving overall. Patient requests to switch from Depakote ER to Depakote sprinkles but will wait until VPA level is obtained. 12/06/17 Psych: Trough VPA level 53.1 on 12/05. Will switch from Depakote ER to Depakote sprinkles 250mg PO TID. Patient improving overall; will assess cognition and ability to function independently via SLUMS, DAILY. 12/07/17 Psych: Continue current care; will repeat SLUMS and likely DAILY to assess functionality at home. 12/08/17 Psych: Increase Zyprexa to 15mg PO q HS. Will continue to attempt to get DAILY as patient refused "because she is being sued" and asked the ekg manager to come back in 48 hours. 12/09/17 Psych: Will ask nursing to do mouth checks to ensure med compliance. Increased Zyprexa on 12/08. Have asked nursing to complete SLUMS if patient is willing. 12/09/17 Medically stable at this point. Labs last done on 12/05/17, unremarkable. Hemoglobin A1c 6.0%. Vitamin B 12, however, is borderline low at 292. Continue on oral vitamin B12. Psychiatric progress notes reviewed. 12/10/17 Psych: Increase Zyprexa to 20mg PO q HS and monitor response. 12/11/17 Psych: Will switch to Zydis formulation and likely check VPA level on Thursday after switch to sprinkles. 12/12/17 Psych note- Continue current care. Depakote level in AM 12/13/17 Psych note- Pt appears more sedated. has been refusing Depakote. Will discuss with Dr. Hercules 12/13/17 Suspect pt. could have experienced sunburn on her eyelid. Due to reported drainage, will start antibiotic/steroid eyedrops and apply warm compresses. If no improvement, could consider ophthalmology or plastics consult. Severe halitosis-treat for possible thrush. Vocal hoarseness/wheezy- COPD? Will order PRN ventolin. If no improvement, may need ENT consult as OP to evaluate halitosis and vocal changes. Labs reviewed. No evidence of infection- suspect concern due to underlying paranoia/psychosis. Chart is reviewed for collateral information. 12/14/17 Psych: Will consider changing antipsychotic to medication that is less sedating. For now, will discontinue Depakote sprinkles as level was low, patient has been refusing. Will restart Depakote ER 750mg, which was within therapeutic range at steady state. 12/15/17 Continue treatment for possible eye infection/inflammation with antibiotic/ steroid drops through 12/20. Medically stable. 12/15/17 Psych: Continue current care and monitor response now that patient is back to taking Depakote ER. Seems less sedated during the day. 12/16/17 Psych: Continue current care as patient is doing well. Will order EKG.
[2017-12-16] MEDS: OLANZapine ODT 5 MG TABLET PO SCH ×2 (19:32→20:39)
[2017-12-17] MEDS: CYANOCOBALAMIN (B-12) 500mcg TABLET PO SCH (09:03)
[2017-12-17] MEDS: DEXAMETHASONE LEFT EYE SCH ×4 (09:03→20:01)
[2017-12-17] MEDS: NICOTINE 14 MG PATCH TD SCH (09:03)
[2017-12-17] MEDS: NICOTINE PATCH REMOVAL TD SCH (09:03)
[2017-12-17] MEDS: NEOMYCIN LEFT EYE SCH ×4 (09:03→20:01)
[2017-12-17] MEDS: [UNRECOGNIZED DRUG - OTHER] LEFT EYE SCH ×4 (09:03→20:01)
[2017-12-17] MEDS: VITAMIN E 400 UNIT CAPSULE PO SCH (09:04)
[2017-12-17] MEDS: NYSTATIN 500,000 units/5 ml ORAL LIQUID PO SCH ×4 (09:04→20:02)
--- NOTE | 2017-12-17 10:38 | Neuropsych Progress Note ---
[facility] Subjective Date: 12/17/17 - Sujective/Severity of Illness Medications: Acetaminophen (Tylenol) 500 mg PO Q5H PRN PRN Reason: Discomfort Albuterol Sulfate (Proventil Neb (0.083%)) 2.5 mg AEROSOL Q4H PRN PRN Reason: WHEEZE Artificial Tears (Refresh Classic) 1 drop EACH EYE PRN PRN PRN Reason: PRN DRY EYES Last Admin: 12/08/17 11:10 Dose: 1 drop Cyanocobalamin (Vit. B-12) 1,000 mcg PO DAILY [facility] Last Admin: 12/17/17 09:03 Dose: 1,000 mcg Divalproex Sodium (Depakote Er) 750 mg PO [facility] Last Admin: 12/16/17 20:39 Dose: Not Given Haloperidol (Haldol) 0.5 mg PO Q6H PRN PRN Reason: Extreme agitation Last Admin: 11/28/17 12:08 Dose: 0.5 mg Haloperidol Lactate (Haldol) 0.5 mg IM Q6H PRN PRN Reason: Extreme agitation Ibuprofen (Motrin) 400 mg PO Q4H PRN PRN Reason: Pain Lorazepam (Ativan) 1 mg PO Q6H PRN Lorazepam (Ativan) 0.5 mg PO Q6H PRN PRN Reason: Extreme agitation Last Admin: 11/30/17 16:12 Dose: 0.5 mg Lorazepam (Ativan Inj) 0.5 mg IM Q6H PRN PRN Reason: Extreme agitation Neomycin/Polymyxin/Dexamethasone (Maxitrol) 2 drop LEFT EYE QID [facility] Stop: 12/20/17 16:59 Last Admin: 12/17/17 09:03 Dose: 2 drop Nicotine (Nicoderm) 14 mg TD DAILY [facility] Last Admin: 12/17/17 09:03 Dose: 14 mg Nicotine (Nicotine Patch Removal) 1 removal TD DAILY [facility] Last Admin: 12/17/17 09:03 Dose: 1 removal Nystatin (Mycostatin) 5 ml PO QID [facility] Stop: 12/20/17 16:59 Last Admin: 12/17/17 09:04 Dose: 5 ml Olanzapine (Zyprexa Zydis) 20 mg PO [facility] Last Admin: 12/16/17 20:39 Dose: Not Given Vitamin E (Vitamin E) 400 unit PO DAILY [facility] Last Admin: 12/17/17 09:04 Dose: 400 unit Subjective: Patient seen and chart reviewed. Case discussed with treatment team. Patient is sleeping at time of rounds. She has continued to report AH of conversations but insists they're real. Patient denies any SI, HI. Nursing staff report patient has been pleasant and cooperative overall, with some encouragement needed for HS med compliance. Patient slept 6+ hours overnight. VSS. Patient is eating well. Psychotropic PRNs required in the past 24 hours: none. Start Time: 07:00 Stop Time: 07:15 Mental Status Exam Vitals: Last Vital Signs Temp 97.8 F 12/17/17 08:00 Pulse 85 12/17/17 08:00 Resp 20 12/17/17 08:00 BP 122/70 12/17/17 08:00 Pulse Ox 94 12/17/17 08:00 Height: 1.6 m Weight: 81.9 kg - Mental Status Exam Muscle Strength/Tone: Normal Dressing: Eccentric Grooming: Disheveled Attitude: Cooperative Motor Activity: Normal Eye Contact: Good Speech: Other (continues to be hypertalkative, less pressured than on admission) Volume: Normal Rhythm: Appropriate Rhythm Sensory: Other (patient is asleep at time of rounds; MSE based in part on my last interaction with her) Orientation: Oriented X4 Mood: Neutral Rate of Thoughts: Appropriate Rate Thought Organization: Circumstantial Associations: Illogical Abstract Reasoning: Intact, able to abstract Computation: Intact Thought Content: Delusions, Ruminations, Paranoia, Somatic Concerns Perception/Psychotic: Psychotic (decreased from admission) Current Hallucinations: Auditory Fund of Knowledge: Enrique aware current events Memory: Poor-recent, Other (SLUMS ) Suicidal Ideation: Denies Homicidal Ideation: Denies Insight: Impaired Judgement: Impaired Impulse Control: Fair - Laboratory Result Diagrams: 12/13/17 06:25 12/13/17 06:25 Assessment and Plan (1) Bipolar 1 disorder, mixed, severe Problem details: with psychotic features Other medical conditions: NAFLD Current visit: Yes Status: Acute (2) Major neurocognitive disorder Current visit: Yes Status: Acute (3) Nicotine use disorder Current visit: Yes Status: Acute Continue current care, SW working to find safe discharge arrangements and f/u for outpatient psychiatric care. Hospital Course Summary Disclaimer: The visit summary below is not to be considered part of the above Progress Note. Hospital Course: Impression Psychosis Paranoia NAFLD Tobacco dependence Plan Agree with involuntary psychiatric admission under the care of Dr. Hercules for further evaluation and treatment Medical labs from acute stay evaluated and stable. All unremarkable May want to consider CT of brain to rule out underline intracranial disease process Monitor vital signs Tylenol as needed for pain May use lotion topically to sunburn Encourage patient to participate in unit activities and provide a safe environment It does not appear that patient has a PCP. CM and services program manager involved. They have filed petition to [facility] Attorney's Office for involuntary tx. Petition 11/28/17 psych note- Pt refusing meds but no behaviors. Continue current care 11/29/17 Psych note- Pt remains paranoid and delusional. Continue current care. 11/30/17 Psych: Patient court-ordered for psychiatric treatment and she agrees to trial of Zyprexa Zydis 5mg PO q HS to start tonight. 12/01/17 Psych: Continue Zyprexa Zydis 5mg PO q HS -- patient prefers to take this medication rather than try another antipsychotic. If she tolerates it will likely start additional mood stabilizer on 12/02. 12/02/17 Psych: Start Depakote ER 750mg PO Q HS to target continued manic symptoms. 12/03/17 Psych: Continue current care with plan to check trough Depakote level on Tuesday 12/05 prior to HS dose. 12/03 Psychiatric care as per Dr. Hercules Paranoia appears to be improving on current regimen. Tylenol as needed for pain Overall, appears medically stable. chart reviewed Encourage patient to participate in unit activities and provide a safe environment. 12/04/17 Psych: Increase Zyprexa to 10mg PO q HS to target psychosis. Will check trough Depakote level tomorrow. 12/05/17 Psych: Will order labs, VPA level this evening and adjust to therapeutic level. Improving overall. Patient requests to switch from Depakote ER to Depakote sprinkles but will wait until VPA level is obtained. 12/06/17 Psych: Trough VPA level 53.1 on 12/05. Will switch from Depakote ER to Depakote sprinkles 250mg PO TID. Patient improving overall; will assess cognition and ability to function independently via SLUMS, DAILY. 12/07/17 Psych: Continue current care; will repeat SLUMS and likely DAILY to assess functionality at home. 12/08/17 Psych: Increase Zyprexa to 15mg PO q HS. Will continue to attempt to get DAILY as patient refused "because she is being sued" and asked the generalist to come back in 48 hours. 12/09/17 Psych: Will ask nursing to do mouth checks to ensure med compliance. Increased Zyprexa on 12/08. Have asked nursing to complete SLUMS if patient is willing. 12/09/17 Medically stable at this point. Labs last done on 12/05/17, unremarkable. Hemoglobin A1c 6.0%. Vitamin B 12, however, is borderline low at 292. Continue on oral vitamin B12. Psychiatric progress notes reviewed. 12/10/17 Psych: Increase Zyprexa to 20mg PO q HS and monitor response. 12/11/17 Psych: Will switch to Zydis formulation and likely check VPA level on Thursday after switch to sprinkles. 12/12/17 Psych note- Continue current care. Depakote level in AM 12/13/17 Psych note- Pt appears more sedated. has been refusing Depakote. Will discuss with Dr. Hercules 12/13/17 Suspect pt. could have experienced sunburn on her eyelid. Due to reported drainage, will start antibiotic/steroid eyedrops and apply warm compresses. If no improvement, could consider ophthalmology or plastics consult. Severe halitosis-treat for possible thrush. Vocal hoarseness/wheezy- COPD? Will order PRN ventolin. If no improvement, may need ENT consult as OP to evaluate halitosis and vocal changes. Labs reviewed. No evidence of infection- suspect concern due to underlying paranoia/psychosis. Chart is reviewed for collateral information. 12/14/17 Psych: Will consider changing antipsychotic to medication that is less sedating. For now, will discontinue Depakote sprinkles as level was low, patient has been refusing. Will restart Depakote ER 750mg, which was within therapeutic range at steady state. 12/15/17 Continue treatment for possible eye infection/inflammation with antibiotic/ steroid drops through 12/20. Medically stable. 12/15/17 Psych: Continue current care and monitor response now that patient is back to taking Depakote ER. Seems less sedated during the day. 12/16/17 Psych: Continue current care as patient is doing well. Will order EKG. 12/17/17 Psych: Continue current care, SW working to find safe discharge arrangements and f/u for outpatient psychiatric care.
[2017-12-17] MEDS: REFRESH CLASSIC Eye Drops 0.4ml EACH EYE PRN (14:14)
[2017-12-17] MEDS: OLANZapine ODT 5 MG TABLET PO SCH (20:02)
--- NOTE | 2017-12-18 08:40 | Neuropsych Progress Note ---
[facility] Subjective Date: 12/18/17 - Sujective/Severity of Illness Medications: Acetaminophen (Tylenol) 500 mg PO Q5H PRN PRN Reason: Discomfort Albuterol Sulfate (Proventil Neb (0.083%)) 2.5 mg AEROSOL Q4H PRN PRN Reason: WHEEZE Artificial Tears (Refresh Classic) 1 drop EACH EYE PRN PRN PRN Reason: PRN DRY EYES Last Admin: 12/17/17 14:14 Dose: 1 drop Cyanocobalamin (Vit. B-12) 1,000 mcg PO DAILY [facility] Last Admin: 12/17/17 09:03 Dose: 1,000 mcg Divalproex Sodium (Depakote Er) 750 mg PO [facility] Last Admin: 12/17/17 20:01 Dose: 750 mg Haloperidol (Haldol) 0.5 mg PO Q6H PRN PRN Reason: Extreme agitation Last Admin: 11/28/17 12:08 Dose: 0.5 mg Haloperidol Lactate (Haldol) 0.5 mg IM Q6H PRN PRN Reason: Extreme agitation Ibuprofen (Motrin) 400 mg PO Q4H PRN PRN Reason: Pain Lorazepam (Ativan) 1 mg PO Q6H PRN Lorazepam (Ativan) 0.5 mg PO Q6H PRN PRN Reason: Extreme agitation Last Admin: 11/30/17 16:12 Dose: 0.5 mg Lorazepam (Ativan Inj) 0.5 mg IM Q6H PRN PRN Reason: Extreme agitation Neomycin/Polymyxin/Dexamethasone (Maxitrol) 2 drop LEFT EYE QID [facility] Stop: 12/20/17 16:59 Last Admin: 12/17/17 20:01 Dose: 2 drop Nicotine (Nicoderm) 14 mg TD DAILY [facility] Last Admin: 12/17/17 09:03 Dose: 14 mg Nicotine (Nicotine Patch Removal) 1 removal TD DAILY [facility] Last Admin: 12/17/17 09:03 Dose: 1 removal Nystatin (Mycostatin) 5 ml PO QID [facility] Stop: 12/20/17 16:59 Last Admin: 12/17/17 20:02 Dose: 5 ml Olanzapine (Zyprexa Zydis) 20 mg PO [facility] Last Admin: 12/17/17 20:02 Dose: 20 mg Vitamin E (Vitamin E) 400 unit PO DAILY [facility] Last Admin: 12/17/17 09:04 Dose: 400 unit Subjective: Patient seen and chart reviewed. Case discussed with treatment team. On interview, patient is pleasant but continues to perseverate on missing important papers. She is willing to name a DPOA (her adult granddaughter) now, which is an improvement from prior. Guardianship process will still continue. Patient denies any SI, HI. She has been observed responding to internal stimuli at times. Nursing staff report patient has been pleasant and cooperative overall, with some encouragement needed for HS med compliance. Patient slept 8.25 hours overnight. VSS. Patient is eating well. Psychotropic PRNs required in the past 24 hours: none. Start Time: 12:20 Stop Time: 12:40 Mental Status Exam Vitals: Last Vital Signs Temp 96.8 F 12/17/17 19:36 Pulse 92 12/17/17 19:36 Resp 18 12/17/17 19:36 BP 151/65 H 12/17/17 19:36 Pulse Ox 94 12/17/17 19:36 Height: 1.6 m Weight: 81.9 kg - Mental Status Exam Muscle Strength/Tone: Normal Dressing: Eccentric Grooming: Fair Attitude: Cooperative Motor Activity: Normal Eye Contact: Good Speech: Normal Volume: Normal Rhythm: Appropriate Rhythm Sensory: Alert Orientation: Oriented X4 Mood: Neutral Affect: Relaxed Rate of Thoughts: Appropriate Rate Thought Organization: Circumstantial, Perseverations (on important papers) Associations: Illogical Abstract Reasoning: Intact, able to abstract Computation: Intact Thought Content: Delusions, Ruminations, Paranoia, Somatic Concerns Perception/Psychotic: Psychotic (decreased from admission) Current Hallucinations: Auditory Fund of Knowledge: Enrique aware current events Memory: Poor-recent, Other (SLUMS ) Suicidal Ideation: Denies Homicidal Ideation: Denies Insight: Impaired Judgement: Impaired Impulse Control: Fair - Laboratory Result Diagrams: 12/13/17 06:25 12/13/17 06:25 Assessment and Plan (1) Bipolar 1 disorder, mixed, severe Problem details: with psychotic features Other medical conditions: NAFLD Current visit: Yes Status: Acute (2) Major neurocognitive disorder Current visit: Yes Status: Acute (3) Nicotine use disorder Current visit: Yes Status: Acute Will check Depakote level, CBC, CMP on Tuesday 12/19. Have asked nursing staff to do consistent med checks after Depakote and Zyprexa as I have some concern she has not been adherent with antipsychotic. Hospital Course Summary Disclaimer: The visit summary below is not to be considered part of the above Progress Note. Hospital Course: Impression Psychosis Paranoia NAFLD Tobacco dependence Plan Agree with involuntary psychiatric admission under the care of Dr. Hercules for further evaluation and treatment Medical labs from acute stay evaluated and stable. All unremarkable May want to consider CT of brain to rule out underline intracranial disease process Monitor vital signs Tylenol as needed for pain May use lotion topically to sunburn Encourage patient to participate in unit activities and provide a safe environment It does not appear that patient has a PCP. CM and clinical services director involved. They have filed petition to [facility] Attorney's Office for involuntary tx. Petition 11/28/17 psych note- Pt refusing meds but no behaviors. Continue current care 11/29/17 Psych note- Pt remains paranoid and delusional. Continue current care. 11/30/17 Psych: Patient court-ordered for psychiatric treatment and she agrees to trial of Zyprexa Zydis 5mg PO q HS to start tonight. 12/01/17 Psych: Continue Zyprexa Zydis 5mg PO q HS -- patient prefers to take this medication rather than try another antipsychotic. If she tolerates it will likely start additional mood stabilizer on 12/02. 12/02/17 Psych: Start Depakote ER 750mg PO Q HS to target continued manic symptoms. 12/03/17 Psych: Continue current care with plan to check trough Depakote level on Tuesday 12/05 prior to HS dose. 12/03 Psychiatric care as per Dr. Hercules Paranoia appears to be improving on current regimen. Tylenol as needed for pain Overall, appears medically stable. chart reviewed Encourage patient to participate in unit activities and provide a safe environment. 12/04/17 Psych: Increase Zyprexa to 10mg PO q HS to target psychosis. Will check trough Depakote level tomorrow. 12/05/17 Psych: Will order labs, VPA level this evening and adjust to therapeutic level. Improving overall. Patient requests to switch from Depakote ER to Depakote sprinkles but will wait until VPA level is obtained. 12/06/17 Psych: Trough VPA level 53.1 on 12/05. Will switch from Depakote ER to Depakote sprinkles 250mg PO TID. Patient improving overall; will assess cognition and ability to function independently via SLUMS, DAILY. 12/07/17 Psych: Continue current care; will repeat SLUMS and likely DAILY to assess functionality at home. 12/08/17 Psych: Increase Zyprexa to 15mg PO q HS. Will continue to attempt to get DAILY as patient refused "because she is being sued" and asked the data integrity consultant to come back in 48 hours. 12/09/17 Psych: Will ask nursing to do mouth checks to ensure med compliance. Increased Zyprexa on 12/08. Have asked nursing to complete SLUMS if patient is willing. 12/09/17 Medically stable at this point. Labs last done on 12/05/17, unremarkable. Hemoglobin A1c 6.0%. Vitamin B 12, however, is borderline low at 292. Continue on oral vitamin B12. Psychiatric progress notes reviewed. 12/10/17 Psych: Increase Zyprexa to 20mg PO q HS and monitor response. 12/11/17 Psych: Will switch to Zydis formulation and likely check VPA level on Thursday after switch to sprinkles. 12/12/17 Psych note- Continue current care. Depakote level in AM 12/13/17 Psych note- Pt appears more sedated. has been refusing Depakote. Will discuss with Dr. Hercules 12/13/17 Suspect pt. could have experienced sunburn on her eyelid. Due to reported drainage, will start antibiotic/steroid eyedrops and apply warm compresses. If no improvement, could consider ophthalmology or plastics consult. Severe halitosis-treat for possible thrush. Vocal hoarseness/wheezy- COPD? Will order PRN ventolin. If no improvement, may need ENT consult as OP to evaluate halitosis and vocal changes. Labs reviewed. No evidence of infection- suspect concern due to underlying paranoia/psychosis. Chart is reviewed for collateral information. 12/14/17 Psych: Will consider changing antipsychotic to medication that is less sedating. For now, will discontinue Depakote sprinkles as level was low, patient has been refusing. Will restart Depakote ER 750mg, which was within therapeutic range at steady state. 12/15/17 Continue treatment for possible eye infection/inflammation with antibiotic/ steroid drops through 12/20. Medically stable. 12/15/17 Psych: Continue current care and monitor response now that patient is back to taking Depakote ER. Seems less sedated during the day. 12/16/17 Psych: Continue current care as patient is doing well. Will order EKG. 12/17/17 Psych: Continue current care, SW working to find safe discharge arrangements and f/u for outpatient psychiatric care. 12/18/17 Psych: Will check Depakote level, CBC, CMP on Tuesday 12/19. 12/19/17 Psych: Will check Depakote level, CBC, CMP on Tuesday 12/19. Have asked nursing staff to do consistent med checks after Depakote and Zyprexa as I have some concern she has not been adherent with antipsychotic.
[2017-12-18] MEDS: NICOTINE 14 MG PATCH TD SCH (09:22)
[2017-12-18] MEDS: NYSTATIN 500,000 units/5 ml ORAL LIQUID PO SCH ×4 (09:22→20:17)
[2017-12-18] MEDS: VITAMIN E 400 UNIT CAPSULE PO SCH (09:22)
[2017-12-18] MEDS: CYANOCOBALAMIN (B-12) 500mcg TABLET PO SCH (09:22)
[2017-12-18] MEDS: DEXAMETHASONE LEFT EYE SCH ×4 (09:23→20:16)
[2017-12-18] MEDS: NEOMYCIN LEFT EYE SCH ×4 (09:23→20:16)
[2017-12-18] MEDS: NICOTINE PATCH REMOVAL TD SCH (09:23)
[2017-12-18] MEDS: [UNRECOGNIZED DRUG - OTHER] LEFT EYE SCH ×4 (09:23→20:16)
[2017-12-18] MEDS: OLANZapine ODT 5 MG TABLET PO SCH (20:19)
[2017-12-19] MEDS: CYANOCOBALAMIN (B-12) 500mcg TABLET PO SCH (09:32)
[2017-12-19] MEDS: NEOMYCIN LEFT EYE SCH ×4 (09:33→21:10)
[2017-12-19] MEDS: [UNRECOGNIZED DRUG - OTHER] LEFT EYE SCH ×4 (09:33→21:10)
[2017-12-19] MEDS: DEXAMETHASONE LEFT EYE SCH ×4 (09:33→21:10)
[2017-12-19] MEDS: NYSTATIN 500,000 units/5 ml ORAL LIQUID PO SCH ×5 (09:33→21:10)
[2017-12-19] MEDS: REFRESH CLASSIC Eye Drops 0.4ml EACH EYE PRN (09:33)
[2017-12-19] MEDS: NICOTINE PATCH REMOVAL TD SCH (09:35)
[2017-12-19] MEDS: VITAMIN E 400 UNIT CAPSULE PO SCH (09:39)
[2017-12-19] MEDS: NICOTINE 14 MG PATCH TD SCH (11:35)
--- NOTE | 2017-12-19 12:58 | Neuropsych Progress Note ---
[facility] Subjective Date: 12/19/17 - Sujective/Severity of Illness Medications: Acetaminophen (Tylenol) 500 mg PO Q5H PRN PRN Reason: Discomfort Last Admin: 12/18/17 10:04 Dose: 500 mg Albuterol Sulfate (Proventil Neb (0.083%)) 2.5 mg AEROSOL Q4H PRN PRN Reason: WHEEZE Artificial Tears (Refresh Classic) 1 drop EACH EYE PRN PRN PRN Reason: PRN DRY EYES Last Admin: 12/19/17 09:33 Dose: 1 drop Cyanocobalamin (Vit. B-12) 1,000 mcg PO DAILY [facility] Last Admin: 12/19/17 09:32 Dose: 1,000 mcg Divalproex Sodium (Depakote Er) 750 mg PO [facility] Last Admin: 12/18/17 20:16 Dose: 750 mg Haloperidol (Haldol) 0.5 mg PO Q6H PRN PRN Reason: Extreme agitation Last Admin: 11/28/17 12:08 Dose: 0.5 mg Haloperidol Lactate (Haldol) 0.5 mg IM Q6H PRN PRN Reason: Extreme agitation Ibuprofen (Motrin) 400 mg PO Q4H PRN PRN Reason: Pain Lorazepam (Ativan) 1 mg PO Q6H PRN Lorazepam (Ativan) 0.5 mg PO Q6H PRN PRN Reason: Extreme agitation Last Admin: 11/30/17 16:12 Dose: 0.5 mg Lorazepam (Ativan Inj) 0.5 mg IM Q6H PRN PRN Reason: Extreme agitation Neomycin/Polymyxin/Dexamethasone (Maxitrol) 2 drop LEFT EYE QID [facility] Stop: 12/20/17 16:59 Last Admin: 12/19/17 09:33 Dose: 2 drop Nicotine (Nicoderm) 14 mg TD DAILY [facility] Last Admin: 12/19/17 11:35 Dose: 14 mg Nicotine (Nicotine Patch Removal) 1 removal TD DAILY [facility] Last Admin: 12/19/17 09:35 Dose: 1 removal Nystatin (Mycostatin) 5 ml PO QID [facility] Stop: 12/20/17 16:59 Last Admin: 12/19/17 09:33 Dose: Not Given Olanzapine (Zyprexa Zydis) 20 mg PO [facility] Last Admin: 12/18/17 20:19 Dose: 20 mg Vitamin E (Vitamin E) 400 unit PO DAILY [facility] Last Admin: 12/19/17 09:39 Dose: 400 unit Subjective: Patient seen and chart reviewed. Case discussed with nursing. Nursing repros pt is doing well. Sleeping well and has a good appetite. No behaviors noted. On face to face the pt states she is doing well. She reports she feels her mood is improving. She denies any S/I or psychosis. Tolerating meds Start Time: 11:00 Stop Time: 11:15 Mental Status Exam Vitals: Last Vital Signs Temp 97.8 F 12/19/17 08:00 Pulse 84 12/19/17 08:00 Resp 16 12/19/17 08:00 BP 123/59 12/19/17 08:00 Pulse Ox 92 12/19/17 08:00 Height: 1.6 m Weight: 81.9 kg - Mental Status Exam Muscle Strength/Tone: Normal Dressing: Eccentric Grooming: Fair Attitude: Cooperative Motor Activity: Normal Eye Contact: Good Speech: Normal Volume: Normal Rhythm: Appropriate Rhythm Orientation: Oriented X4 Mood: Neutral Rate of Thoughts: Appropriate Rate Thought Organization: Circumstantial, Perseverations (on important papers) Associations: Illogical Abstract Reasoning: Intact, able to abstract Computation: Intact Thought Content: Delusions, Ruminations, Paranoia, Somatic Concerns Perception/Psychotic: Psychotic (decreased from admission) Current Hallucinations: Auditory Fund of Knowledge: Enrique aware current events Memory: Poor-recent, Other (SLUMS ) Suicidal Ideation: Denies Homicidal Ideation: Denies Insight: Impaired Judgement: Impaired Impulse Control: Fair - Laboratory Result Diagrams: 12/13/17 06:25 12/13/17 06:25 Assessment and Plan (1) Bipolar 1 disorder, mixed, severe Problem details: with psychotic features Other medical conditions: NAFLD Current visit: Yes Status: Acute (2) Major neurocognitive disorder Current visit: Yes Status: Acute (3) Nicotine use disorder Current visit: Yes Status: Acute Hospital Course Summary Disclaimer: The visit summary below is not to be considered part of the above Progress Note. Hospital Course: Impression Psychosis Paranoia NAFLD Tobacco dependence Plan Agree with involuntary psychiatric admission under the care of Dr. Hercules for further evaluation and treatment Medical labs from acute stay evaluated and stable. All unremarkable May want to consider CT of brain to rule out underline intracranial disease process Monitor vital signs Tylenol as needed for pain May use lotion topically to sunburn Encourage patient to participate in unit activities and provide a safe environment It does not appear that patient has a PCP. CM and manager of creative services involved. They have filed petition to [facility] Attorney's Office for involuntary tx. Petition 11/28/17 psych note- Pt refusing meds but no behaviors. Continue current care 11/29/17 Psych note- Pt remains paranoid and delusional. Continue current care. 11/30/17 Psych: Patient court-ordered for psychiatric treatment and she agrees to trial of Zyprexa Zydis 5mg PO q HS to start tonight. 12/01/17 Psych: Continue Zyprexa Zydis 5mg PO q HS -- patient prefers to take this medication rather than try another antipsychotic. If she tolerates it will likely start additional mood stabilizer on 12/02. 12/02/17 Psych: Start Depakote ER 750mg PO Q HS to target continued manic symptoms. 12/03/17 Psych: Continue current care with plan to check trough Depakote level on Tuesday 12/05 prior to HS dose. 12/03 Psychiatric care as per Dr. Hercules Paranoia appears to be improving on current regimen. Tylenol as needed for pain Overall, appears medically stable. chart reviewed Encourage patient to participate in unit activities and provide a safe environment. 12/04/17 Psych: Increase Zyprexa to 10mg PO q HS to target psychosis. Will check trough Depakote level tomorrow. 12/05/17 Psych: Will order labs, VPA level this evening and adjust to therapeutic level. Improving overall. Patient requests to switch from Depakote ER to Depakote sprinkles but will wait until VPA level is obtained. 12/06/17 Psych: Trough VPA level 53.1 on 12/05. Will switch from Depakote ER to Depakote sprinkles 250mg PO TID. Patient improving overall; will assess cognition and ability to function independently via SLUMS, DAILY. 12/07/17 Psych: Continue current care; will repeat SLUMS and likely DAILY to assess functionality at home. 12/08/17 Psych: Increase Zyprexa to 15mg PO q HS. Will continue to attempt to get DAILY as patient refused "because she is being sued" and asked the buckle sewer machine to come back in 48 hours. 12/09/17 Psych: Will ask nursing to do mouth checks to ensure med compliance. Increased Zyprexa on 12/08. Have asked nursing to complete SLUMS if patient is willing. 12/09/17 Medically stable at this point. Labs last done on 12/05/17, unremarkable. Hemoglobin A1c 6.0%. Vitamin B 12, however, is borderline low at 292. Continue on oral vitamin B12. Psychiatric progress notes reviewed. 12/10/17 Psych: Increase Zyprexa to 20mg PO q HS and monitor response. 12/11/17 Psych: Will switch to Zydis formulation and likely check VPA level on Thursday after switch to sprinkles. 12/12/17 Psych note- Continue current care. Depakote level in AM 12/13/17 Psych note- Pt appears more sedated. has been refusing Depakote. Will discuss with Dr. Hercules 12/13/17 Suspect pt. could have experienced sunburn on her eyelid. Due to reported drainage, will start antibiotic/steroid eyedrops and apply warm compresses. If no improvement, could consider ophthalmology or plastics consult. Severe halitosis-treat for possible thrush. Vocal hoarseness/wheezy- COPD? Will order PRN ventolin. If no improvement, may need ENT consult as OP to evaluate halitosis and vocal changes. Labs reviewed. No evidence of infection- suspect concern due to underlying paranoia/psychosis. Chart is reviewed for collateral information. 12/14/17 Psych: Will consider changing antipsychotic to medication that is less sedating. For now, will discontinue Depakote sprinkles as level was low, patient has been refusing. Will restart Depakote ER 750mg, which was within therapeutic range at steady state. 12/15/17 Continue treatment for possible eye infection/inflammation with antibiotic/ steroid drops through 12/20. Medically stable. 12/15/17 Psych: Continue current care and monitor response now that patient is back to taking Depakote ER. Seems less sedated during the day. 12/16/17 Psych: Continue current care as patient is doing well. Will order EKG. 12/17/17 Psych: Continue current care, SW working to find safe discharge arrangements and f/u for outpatient psychiatric care. 12/18/17 Psych: Will check Depakote level, CBC, CMP on Tuesday 12/19. 12/19/17 Psych: Will check Depakote level, CBC, CMP on Tuesday 12/19. Have asked nursing staff to do consistent med checks after Depakote and Zyprexa as I have some concern she has not been adherent with antipsychotic. 12/20/17 psych note- Continue current care
[2017-12-19] MEDS: OLANZapine ODT 5 MG TABLET PO SCH (21:10)
[2017-12-20] MEDS: NYSTATIN 500,000 units/5 ml ORAL LIQUID PO SCH ×3 (03:33→15:32)
[2017-12-20] MEDS: [UNRECOGNIZED DRUG - OTHER] LEFT EYE SCH ×2 (09:55→12:46)
[2017-12-20] MEDS: DEXAMETHASONE LEFT EYE SCH ×2 (09:55→12:46)
[2017-12-20] MEDS: NEOMYCIN LEFT EYE SCH ×2 (09:55→12:46)
[2017-12-20] MEDS: NICOTINE PATCH REMOVAL TD SCH (09:56)
[2017-12-20] MEDS: NICOTINE 14 MG PATCH TD SCH (09:56)
[2017-12-20] MEDS: VITAMIN E 400 UNIT CAPSULE PO SCH (09:57)
[2017-12-20] MEDS: CYANOCOBALAMIN (B-12) 500mcg TABLET PO SCH (09:57)
--- NOTE | 2017-12-20 12:02 | Neuropsych Progress Note ---
[facility] Subjective Date: 12/20/17 - Sujective/Severity of Illness Medications: Acetaminophen (Tylenol) 500 mg PO Q5H PRN PRN Reason: Discomfort Last Admin: 12/18/17 10:04 Dose: 500 mg Albuterol Sulfate (Proventil Neb (0.083%)) 2.5 mg AEROSOL Q4H PRN PRN Reason: WHEEZE Artificial Tears (Refresh Classic) 1 drop EACH EYE PRN PRN PRN Reason: PRN DRY EYES Last Admin: 12/19/17 09:33 Dose: 1 drop Cyanocobalamin (Vit. B-12) 1,000 mcg PO DAILY [facility] Last Admin: 12/20/17 09:57 Dose: 1,000 mcg Divalproex Sodium (Depakote Er) 750 mg PO [facility] Last Admin: 12/19/17 21:09 Dose: 750 mg Haloperidol (Haldol) 0.5 mg PO Q6H PRN PRN Reason: Extreme agitation Last Admin: 11/28/17 12:08 Dose: 0.5 mg Haloperidol Lactate (Haldol) 0.5 mg IM Q6H PRN PRN Reason: Extreme agitation Ibuprofen (Motrin) 400 mg PO Q4H PRN PRN Reason: Pain Lorazepam (Ativan) 1 mg PO Q6H PRN Lorazepam (Ativan) 0.5 mg PO Q6H PRN PRN Reason: Extreme agitation Last Admin: 11/30/17 16:12 Dose: 0.5 mg Lorazepam (Ativan Inj) 0.5 mg IM Q6H PRN PRN Reason: Extreme agitation Neomycin/Polymyxin/Dexamethasone (Maxitrol) 2 drop LEFT EYE QID [facility] Stop: 12/20/17 16:59 Last Admin: 12/20/17 09:55 Dose: 2 drop Nicotine (Nicoderm) 14 mg TD DAILY [facility] Last Admin: 12/20/17 09:56 Dose: 14 mg Nicotine (Nicotine Patch Removal) 1 removal TD DAILY [facility] Last Admin: 12/20/17 09:56 Dose: 1 removal Nystatin (Mycostatin) 5 ml PO QID [facility] Stop: 12/20/17 16:59 Last Admin: 12/20/17 09:55 Dose: 5 ml Olanzapine (Zyprexa Zydis) 20 mg PO [facility] Last Admin: 12/19/17 21:10 Dose: 20 mg Vitamin E (Vitamin E) 400 unit PO DAILY [facility] Last Admin: 12/20/17 09:57 Dose: 400 unit Subjective: Patient seen and chart reviewed. Case discussed with nursing. Nursing reports pt is doing well. Sleeping well and has a good appetite. No behaviors noted. On face to face the pt states she is doing well. She is worried about some documents she is missing but voices no other concerns. Reports some depression but feels it is mild. Tolerating meds. Denies S/I or psychosis Start Time: 11:15 Stop Time: 11:30 Mental Status Exam Vitals: Last Vital Signs Temp 97.2 F 12/20/17 08:00 Pulse 84 12/20/17 08:00 Resp 16 12/20/17 08:00 BP 129/51 12/20/17 08:00 Pulse Ox 91 12/20/17 08:00 Height: 1.6 m Weight: 81.9 kg - Mental Status Exam Muscle Strength/Tone: Normal Dressing: Eccentric Grooming: Fair Attitude: Cooperative Motor Activity: Normal Eye Contact: Good Speech: Normal Volume: Normal Rhythm: Appropriate Rhythm Orientation: Oriented X4 Mood: Neutral Rate of Thoughts: Appropriate Rate Thought Organization: Circumstantial, Perseverations (on important papers) Associations: Illogical Abstract Reasoning: Intact, able to abstract Computation: Intact Thought Content: Delusions, Ruminations, Paranoia, Somatic Concerns Perception/Psychotic: Psychotic (decreased from admission) Current Hallucinations: Auditory Fund of Knowledge: Enrique aware current events Memory: Poor-recent, Other (SLUMS ) Suicidal Ideation: Denies Homicidal Ideation: Denies Insight: Impaired Judgement: Impaired Impulse Control: Fair - Laboratory Result Diagrams: 12/19/17 18:25 12/19/17 18:25 Laboratory Results - last 24 hr 12/19/17 12/19/17 18:25 18:25 WBC 4.9 RBC 4.40 Hgb 13.6 Hct 41.3 MCV 93.9 MCH 30.9 MCHC 32.9 RDW Std Deviation 45.1 Plt Count 152 MPV 10.1 Immature Gran % (Auto) 0.2 Neut % (Auto) 55.7 Lymph % (Auto) 29.1 Lander % (Auto) 11.3 H Eos % (Auto) 3.1 Baso % (Auto) 0.6 Neut # (Auto) 2.7 Lymph # (Auto) 1.4 Lander # (Auto) 0.6 Eos # (Auto) 0.2 Baso # (Auto) 0.0 Abs Immat Gran (auto) 0.01 Turbidity < 20 Sodium 138 Potassium 4.0 Chloride 100 Carbon Dioxide 29 Anion Gap 9 BUN 13.0 Creatinine 0.8 GFR Calculation 70 BUN/Creatinine Ratio 16 Glucose 248 H Calculated Osmolality 274 Calcium 8.8 Total Bilirubin 0.30 Conjugated Bilirubin 0.00 Unconjugated Bilirubin 0.10 Icterus Index < 2 AST 25 ALT 22 Alkaline Phosphatase 87 Total Protein 6.2 L Albumin 3.5 Globulin 2.7 Albumin/Globulin Ratio 1.3 Specimen Hemolysis < 15 Valproic Acid 48.6 L Assessment and Plan (1) Bipolar 1 disorder, mixed, severe Problem details: with psychotic features Other medical conditions: NAFLD Current visit: Yes Status: Acute (2) Major neurocognitive disorder Current visit: Yes Status: Acute (3) Nicotine use disorder Current visit: Yes Status: Acute Hospital Course Summary Disclaimer: The visit summary below is not to be considered part of the above Progress Note. Hospital Course: Impression Psychosis Paranoia NAFLD Tobacco dependence Plan Agree with involuntary psychiatric admission under the care of Dr. Hercules for further evaluation and treatment Medical labs from acute stay evaluated and stable. All unremarkable May want to consider CT of brain to rule out underline intracranial disease process Monitor vital signs Tylenol as needed for pain May use lotion topically to sunburn Encourage patient to participate in unit activities and provide a safe environment It does not appear that patient has a PCP. CM and nutritional services host involved. They have filed petition to [facility]'s Office for involuntary tx. Petition 11/28/17 psych note- Pt refusing meds but no behaviors. Continue current care 11/29/17 Psych note- Pt remains paranoid and delusional. Continue current care. 11/30/17 Psych: Patient court-ordered for psychiatric treatment and she agrees to trial of Zyprexa Zydis 5mg PO q HS to start tonight. 12/01/17 Psych: Continue Zyprexa Zydis 5mg PO q HS -- patient prefers to take this medication rather than try another antipsychotic. If she tolerates it will likely start additional mood stabilizer on 12/02. 12/02/17 Psych: Start Depakote ER 750mg PO Q HS to target continued manic symptoms. 12/03/17 Psych: Continue current care with plan to check trough Depakote level on Tuesday 12/05 prior to HS dose. 12/03 Psychiatric care as per Dr. Hercules Paranoia appears to be improving on current regimen. Tylenol as needed for pain Overall, appears medically stable. chart reviewed Encourage patient to participate in unit activities and provide a safe environment. 12/04/17 Psych: Increase Zyprexa to 10mg PO q HS to target psychosis. Will check trough Depakote level tomorrow. 12/05/17 Psych: Will order labs, VPA level this evening and adjust to therapeutic level. Improving overall. Patient requests to switch from Depakote ER to Depakote sprinkles but will wait until VPA level is obtained. 12/06/17 Psych: Trough VPA level 53.1 on 12/05. Will switch from Depakote ER to Depakote sprinkles 250mg PO TID. Patient improving overall; will assess cognition and ability to function independently via SLUMS, DAILY. 12/07/17 Psych: Continue current care; will repeat SLUMS and likely DAILY to assess functionality at home. 12/08/17 Psych: Increase Zyprexa to 15mg PO q HS. Will continue to attempt to get DAILY as patient refused "because she is being sued" and asked the application systems administrator to come back in 48 hours. 12/09/17 Psych: Will ask nursing to do mouth checks to ensure med compliance. Increased Zyprexa on 12/08. Have asked nursing to complete SLUMS if patient is willing. 12/09/17 Medically stable at this point. Labs last done on 12/05/17, unremarkable. Hemoglobin A1c 6.0%. Vitamin B 12, however, is borderline low at 292. Continue on oral vitamin B12. Psychiatric progress notes reviewed. 12/10/17 Psych: Increase Zyprexa to 20mg PO q HS and monitor response. 12/11/17 Psych: Will switch to Zydis formulation and likely check VPA level on Thursday after switch to sprinkles. 12/12/17 Psych note- Continue current care. Depakote level in AM 12/13/17 Psych note- Pt appears more sedated. has been refusing Depakote. Will discuss with Dr. Hercules 12/13/17 Suspect pt. could have experienced sunburn on her eyelid. Due to reported drainage, will start antibiotic/steroid eyedrops and apply warm compresses. If no improvement, could consider ophthalmology or plastics consult. Severe halitosis-treat for possible thrush. Vocal hoarseness/wheezy- COPD? Will order PRN ventolin. If no improvement, may need ENT consult as OP to evaluate halitosis and vocal changes. Labs reviewed. No evidence of infection- suspect concern due to underlying paranoia/psychosis. Chart is reviewed for collateral information. 12/14/17 Psych: Will consider changing antipsychotic to medication that is less sedating. For now, will discontinue Depakote sprinkles as level was low, patient has been refusing. Will restart Depakote ER 750mg, which was within therapeutic range at steady state. 12/15/17 Continue treatment for possible eye infection/inflammation with antibiotic/ steroid drops through 12/20. Medically stable. 12/15/17 Psych: Continue current care and monitor response now that patient is back to taking Depakote ER. Seems less sedated during the day. 12/16/17 Psych: Continue current care as patient is doing well. Will order EKG. 12/17/17 Psych: Continue current care, SW working to find safe discharge arrangements and f/u for outpatient psychiatric care. 12/18/17 Psych: Will check Depakote level, CBC, CMP on Tuesday 12/19. 12/19/17 Psych: Will check Depakote level, CBC, CMP on Tuesday 12/19. Have asked nursing staff to do consistent med checks after Depakote and Zyprexa as I have some concern she has not been adherent with antipsychotic. 12/20/17 psych note- Continue current care 12/21/17 psych note- Continue current care
[2017-12-20 19:14] VITALS: O2SAT 92
[2017-12-20] MEDS: OLANZapine ODT 5 MG TABLET PO SCH (19:34)
[2017-12-21] MEDS: OLANZapine ODT 5 MG TABLET PO SCH (02:22)
[2017-12-21 08:42] VITALS: BP 128/54; PULSE 83; RESP 16; TEMP 97.4
[2017-12-21] MEDS: CYANOCOBALAMIN (B-12) 500mcg TABLET PO SCH (08:43)
[2017-12-21] MEDS: NICOTINE PATCH REMOVAL TD SCH (08:43)
[2017-12-21] MEDS: NICOTINE 14 MG PATCH TD SCH (08:43)
[2017-12-21] MEDS: VITAMIN E 400 UNIT CAPSULE PO SCH (08:43)
--- NOTE | 2017-12-21 09:00 | Neuropsych Progress Note ---
[facility] Subjective Date: 12/21/17 - Sujective/Severity of Illness Medications: Acetaminophen (Tylenol) 500 mg PO Q5H PRN PRN Reason: Discomfort Last Admin: 12/18/17 10:04 Dose: 500 mg Albuterol Sulfate (Proventil Neb (0.083%)) 2.5 mg AEROSOL Q4H PRN PRN Reason: WHEEZE Artificial Tears (Refresh Classic) 1 drop EACH EYE PRN PRN PRN Reason: PRN DRY EYES Last Admin: 12/19/17 09:33 Dose: 1 drop Cyanocobalamin (Vit. B-12) 1,000 mcg PO DAILY [facility] Last Admin: 12/21/17 08:43 Dose: 1,000 mcg Divalproex Sodium (Depakote Er) 750 mg PO [facility] Last Admin: 12/21/17 02:22 Dose: Not Given Haloperidol (Haldol) 0.5 mg PO Q6H PRN PRN Reason: Extreme agitation Last Admin: 11/28/17 12:08 Dose: 0.5 mg Haloperidol Lactate (Haldol) 0.5 mg IM Q6H PRN PRN Reason: Extreme agitation Ibuprofen (Motrin) 400 mg PO Q4H PRN PRN Reason: Pain Lorazepam (Ativan) 1 mg PO Q6H PRN Lorazepam (Ativan) 0.5 mg PO Q6H PRN PRN Reason: Extreme agitation Last Admin: 11/30/17 16:12 Dose: 0.5 mg Lorazepam (Ativan Inj) 0.5 mg IM Q6H PRN PRN Reason: Extreme agitation Nicotine (Nicoderm) 14 mg TD DAILY [facility] Last Admin: 12/21/17 08:43 Dose: 14 mg Nicotine (Nicotine Patch Removal) 1 removal TD DAILY [facility] Last Admin: 12/21/17 08:43 Dose: 1 removal Olanzapine (Zyprexa Zydis) 20 mg PO [facility] Last Admin: 12/21/17 02:22 Dose: Not Given Vitamin E (Vitamin E) 400 unit PO DAILY [facility] Last Admin: 12/21/17 08:43 Dose: 400 unit Subjective: Patient seen and chart reviewed. Case discussed with treatment team. On interview, patient is pleasant and has a bright affect. She does not particularly want to go to [place] but remains calm. She continues to focus on needing her important papers but is fairly redirectable. Patient denies any SI, HI. She has not been observed responding to internal stimuli. Patient denies any adverse side effects related to psychotropic medications. Nursing staff report patient has been pleasant/cooperative overall without any behavioral issues on the unit. Patient has been adherent with medications but continues to require strict mouth checks for Depakote, Zyprexa. Patient slept 7.25 hours overnight. VSS. Patient is eating well. Psychotropic PRNs required in the past 24 hours: none. Start Time: 08:40 Stop Time: 09:00 Mental Status Exam Vitals: Last Vital Signs Temp 97.4 F 12/21/17 08:00 Pulse 83 12/21/17 08:00 Resp 16 12/21/17 08:00 BP 128/54 12/21/17 08:00 Pulse Ox 92 12/21/17 08:00 Height: 1.6 m Weight: 81.9 kg - Mental Status Exam Muscle Strength/Tone: Normal Dressing: Eccentric Grooming: Fair Attitude: Cooperative Motor Activity: Normal Eye Contact: Good Speech: Normal Volume: Normal Rhythm: Appropriate Rhythm Sensory: Alert Orientation: Oriented X4 Mood: Neutral Affect: Bright, Relaxed Rate of Thoughts: Appropriate Rate Thought Organization: Perseverations (on important papers) Associations: Illogical (at times) Abstract Reasoning: Intact, able to abstract Computation: Intact Thought Content: Delusions Perception/Psychotic: Psychotic (decreased from admission) Current Hallucinations: Auditory Fund of Knowledge: Enrique aware current events Memory: Poor-recent, Other (SLUMS ) Suicidal Ideation: Denies Homicidal Ideation: Denies Insight: Impaired Judgement: Impaired Impulse Control: Fair - Laboratory Result Diagrams: 12/19/17 18:25 12/19/17 18:25 Assessment and Plan (1) Schizoaffective disorder, bipolar type Current visit: Yes Status: Chronic (2) Neurocognitive disorder Problem details: unspecified Current visit: Yes Status: Acute (3) Nicotine use disorder Current visit: Yes Status: Acute Plan to d/c today to [facility]. Medical decisions should be deferred to [facility] until guardianship finalized. Trough VPA level was 48.6 on current dose of Depakote ER 750mg PO q HS. Would recommend continuing strict mouth checks with Depakote, Zyprexa and considering IM antipsychotic in the future. Hospital Course Summary Disclaimer: The visit summary below is not to be considered part of the above Progress Note. Hospital Course: Impression Psychosis Paranoia NAFLD Tobacco dependence Plan Agree with involuntary psychiatric admission under the care of Dr. Hercules for further evaluation and treatment Medical labs from acute stay evaluated and stable. All unremarkable May want to consider CT of brain to rule out underline intracranial disease process Monitor vital signs Tylenol as needed for pain May use lotion topically to sunburn Encourage patient to participate in unit activities and provide a safe environment It does not appear that patient has a PCP. CM and services rep involved. They have filed petition to [facility] Attorney's Office for involuntary tx. Petition 11/28/17 psych note- Pt refusing meds but no behaviors. Continue current care 11/29/17 Psych note- Pt remains paranoid and delusional. Continue current care. 11/30/17 Psych: Patient court-ordered for psychiatric treatment and she agrees to trial of Zyprexa Zydis 5mg PO q HS to start tonight. 12/01/17 Psych: Continue Zyprexa Zydis 5mg PO q HS -- patient prefers to take this medication rather than try another antipsychotic. If she tolerates it will likely start additional mood stabilizer on 12/02. 12/02/17 Psych: Start Depakote ER 750mg PO Q HS to target continued manic symptoms. 12/03/17 Psych: Continue current care with plan to check trough Depakote level on Tuesday 12/05 prior to HS dose. 12/03 Psychiatric care as per Dr. Hercules Paranoia appears to be improving on current regimen. Tylenol as needed for pain Overall, appears medically stable. chart reviewed Encourage patient to participate in unit activities and provide a safe environment. 12/04/17 Psych: Increase Zyprexa to 10mg PO q HS to target psychosis. Will check trough Depakote level tomorrow. 12/05/17 Psych: Will order labs, VPA level this evening and adjust to therapeutic level. Improving overall. Patient requests to switch from Depakote ER to Depakote sprinkles but will wait until VPA level is obtained. 12/06/17 Psych: Trough VPA level 53.1 on 12/05. Will switch from Depakote ER to Depakote sprinkles 250mg PO TID. Patient improving overall; will assess cognition and ability to function independently via SLUMS, DAILY. 12/07/17 Psych: Continue current care; will repeat SLUMS and likely DAILY to assess functionality at home. 12/08/17 Psych: Increase Zyprexa to 15mg PO q HS. Will continue to attempt to get DAILY as patient refused "because she is being sued" and asked the lead level designer to come back in 48 hours. 12/09/17 Psych: Will ask nursing to do mouth checks to ensure med compliance. Increased Zyprexa on 12/08. Have asked nursing to complete SLUMS if patient is willing. 12/09/17 Medically stable at this point. Labs last done on 12/05/17, unremarkable. Hemoglobin A1c 6.0%. Vitamin B 12, however, is borderline low at 292. Continue on oral vitamin B12. Psychiatric progress notes reviewed. 12/10/17 Psych: Increase Zyprexa to 20mg PO q HS and monitor response. 12/11/17 Psych: Will switch to Zydis formulation and likely check VPA level on Thursday after switch to sprinkles. 12/12/17 Psych note- Continue current care. Depakote level in AM 12/13/17 Psych note- Pt appears more sedated. has been refusing Depakote. Will discuss with Dr. Hercules 12/13/17 Suspect pt. could have experienced sunburn on her eyelid. Due to reported drainage, will start antibiotic/steroid eyedrops and apply warm compresses. If no improvement, could consider ophthalmology or plastics consult. Severe halitosis-treat for possible thrush. Vocal hoarseness/wheezy- COPD? Will order PRN ventolin. If no improvement, may need ENT consult as OP to evaluate halitosis and vocal changes. Labs reviewed. No evidence of infection- suspect concern due to underlying paranoia/psychosis. Chart is reviewed for collateral information. 12/14/17 Psych: Will consider changing antipsychotic to medication that is less sedating. For now, will discontinue Depakote sprinkles as level was low, patient has been refusing. Will restart Depakote ER 750mg, which was within therapeutic range at steady state. 12/15/17 Continue treatment for possible eye infection/inflammation with antibiotic/ steroid drops through 12/20. Medically stable. 12/15/17 Psych: Continue current care and monitor response now that patient is back to taking Depakote ER. Seems less sedated during the day. 12/16/17 Psych: Continue current care as patient is doing well. Will order EKG. 12/17/17 Psych: Continue current care, SW working to find safe discharge arrangements and f/u for outpatient psychiatric care. 12/18/17 Psych: Will check Depakote level, CBC, CMP on Tuesday 12/19. Have asked nursing staff to do consistent med checks after Depakote and Zyprexa as I have some concern she has not been adherent with antipsychotic. 12/21/17 Psych: Plan to d/c today to [facility]. Medical decisions should be deferred to [facility] until guardianship finalized. Trough VPA level was 48.6 on current dose of Depakote ER 750mg PO q HS. Would recommend continuing strict mouth checks with Depakote, Zyprexa and considering IM antipsychotic in the future.
--- NOTE | 2017-12-21 10:07 | Extended Care Facility Orders ---
Admission Orders Admit to:: [facility] Allergies/Adverse Reactions: Allergies aspirin Allergy (Verified 11/25/17 18:37) Sulfa (Sulfonamide Antibiotics) Allergy (Verified 11/25/17 18:37) Admitting Diagnosis: psychosis Admitting Physician: Kajal Hercules MD Attending Physician: Kajal Hercules MD Code Status: Full Code Anticiapted Length of Stay: greater than 30 days Rehab Potential: fair Diet: 11/26/17 Dinner Regular Diet [DIET] Diet Modifications: May use Facility Protocol or Standing Orders: Yes May have flu vaccine: Yes Evaluations/Treatment: [facility] Certification: I certify that SNF services are required to be given on an Inpatient basis because of the patients need for senior living care on a continuing basis for the condition(s) for which he/she received inpatient hospital services prior to his/her transfer to the SNF. SNF inpatient care is necessary for the following reasons Indication for Penitentiary: Not Applicable - Additional Information In Event of Arrest: Start CPR,call 911,send patient to the ER Resident is Aware of Diagnosis: Yes Referrals: Bobbi Russo MD [Physician] - 2 Weeks (Dr. Josiah Russo will see patient on rounds at the facility for Hosp. follow-up. . Graphic Illustrator (Dr. Josiah Russo) will manage Mental Health needs at this time.) Additional Orders: Recommend strict mouth checks for Depakote, Zyprexa. Patient does not have capacity to make own medical decisions and these should be deferred to [facility] until guardianship is finalized.
--- NOTE | 2017-12-21 14:36 | Neuropsychiatric Disch Summary ---
Discharge Information Date of admission: 11/26/17 19:00 Anticipated date of discharge: 12/21/17 Attending Physician: Kajal Hercules MD Primary care physician: [facility] Consults: 11/26/17 19:00 Case Management Consult [CONS] Routine Reason For Exam: Optimization of medical comorbidities Physician Consult [CONS] Routine Consulting Provider: Howard Pinedo Reason For Exam: Optimization of medical comorbidities Ordering Provider has Notified Oncology Consultant: No Comment: Nursing - please notify - Discharge Diagnosis (1) Schizoaffective disorder, bipolar type Status: Chronic (2) Neurocognitive disorder Status: Chronic (3) Nicotine use disorder Status: Chronic - Laboratory Labs: 12/19/17 18:25 12/19/17 18:25 Date of Admission: 11/26/17 19:00 History of Present Illness: Patient is a 77-year-old female who was brought to the [facility] ED by family on 11/24 due to delusional thoughts impacting her functioning. Her son reported at that time that the patient had sat outside her house all day to escape the voices in the house, resulting in a sunburn. He also reported paranoia and AVH "for a couple of days." Psychiatry was consulted on medical floor (I saw patient yesterday) and patient then transferred to [facility] for inpatient psych stabilization on 11/26/17. MHP was filed this AM -- patient signed into unit voluntarily but refuses any medications. Patient has a past psychiatric hx with a previous hospitalization at [facility], though details or diagnosis are unclear. Patient says, "I'm anti-med" and endorses having taken only Valium in the past "for a medical condition." Patient is much more lively and hyperverbal today as I believe she feels more comfortable on the unit. She is disorganized and perseverates on the people who are watching her, trying to torture her and get her to leave her apartment. She feels she can hear them talking about her all the time and even here thinks that they are playing a recording for her to hear. Patient does not have any insight into paranoia/delusions and is upset with her son and ex- for not believing her that people are watching her house, their voices are coming through the mccord, they are making fun of her, etc. She does feel that what they are doing to her has caused her to feel depressed "for a long time." She denies suicidality but said yesterday, "I understand how teenagers slit their wrists when you have people torturing you like that." She denies HI. Patient is observed having conversations to self when others are not in the room. Today, she became significantly more grandiose and hyper-adventism than when seen yesterday. She feels she has TATIANA and a great power that could be dangerous to the world if not contained. She asks for her cell phone because it's blessed, she has 2 adventism books in her room, she frequently talks about God and praying. Patient does not feel she has a psychiatric condition or that psychiatric medication would be helpful for her. Hospital Course This is a general summary of the patient's hospital course. For more details refer to the complete medical record. Hospital course: Impression Psychosis Paranoia NAFLD Tobacco dependence Plan Agree with involuntary psychiatric admission under the care of Dr. Hercules for further evaluation and treatment Medical labs from acute stay evaluated and stable. All unremarkable May want to consider CT of brain to rule out underline intracranial disease process Monitor vital signs Tylenol as needed for pain May use lotion topically to sunburn Encourage patient to participate in unit activities and provide a safe environment It does not appear that patient has a PCP. CM and director dental services involved. They have filed petition to [facility] Attorney's Office for involuntary tx. Petition 11/28/17 psych note- Pt refusing meds but no behaviors. Continue current care 11/29/17 Psych note- Pt remains paranoid and delusional. Continue current care. 11/30/17 Psych: Patient court-ordered for psychiatric treatment and she agrees to trial of Zyprexa Zydis 5mg PO q HS to start tonight. 12/01/17 Psych: Continue Zyprexa Zydis 5mg PO q HS -- patient prefers to take this medication rather than try another antipsychotic. If she tolerates it will likely start additional mood stabilizer on 12/02. 12/02/17 Psych: Start Depakote ER 750mg PO Q HS to target continued manic symptoms. 12/03/17 Psych: Continue current care with plan to check trough Depakote level on Tuesday 12/05 prior to HS dose. 12/03 Psychiatric care as per Dr. Hercules Paranoia appears to be improving on current regimen. Tylenol as needed for pain Overall, appears medically stable. chart reviewed Encourage patient to participate in unit activities and provide a safe environment. 12/04/17 Psych: Increase Zyprexa to 10mg PO q HS to target psychosis. Will check trough Depakote level tomorrow. 12/05/17 Psych: Will order labs, VPA level this evening and adjust to therapeutic level. Improving overall. Patient requests to switch from Depakote ER to Depakote sprinkles but will wait until VPA level is obtained. 12/06/17 Psych: Trough VPA level 53.1 on 12/05. Will switch from Depakote ER to Depakote sprinkles 250mg PO TID. Patient improving overall; will assess cognition and ability to function independently via SLUMS, DAILY. 12/07/17 Psych: Continue current care; will repeat SLUMS and likely DAILY to assess functionality at home. 12/08/17 Psych: Increase Zyprexa to 15mg PO q HS. Will continue to attempt to get DAILY as patient refused "because she is being sued" and asked the helpdesk specialist to come back in 48 hours. 12/09/17 Psych: Will ask nursing to do mouth checks to ensure med compliance. Increased Zyprexa on 12/08. Have asked nursing to complete SLUMS if patient is willing. 12/09/17 Medically stable at this point. Labs last done on 12/05/17, unremarkable. Hemoglobin A1c 6.0%. Vitamin B 12, however, is borderline low at 292. Continue on oral vitamin B12. Psychiatric progress notes reviewed. 12/10/17 Psych: Increase Zyprexa to 20mg PO q HS and monitor response. 12/11/17 Psych: Will switch to Zydis formulation and likely check VPA level on Thursday after switch to sprinkles. 12/12/17 Psych note- Continue current care. Depakote level in AM 12/13/17 Psych note- Pt appears more sedated. has been refusing Depakote. Will discuss with Dr. Hercules 12/13/17 Suspect pt. could have experienced sunburn on her eyelid. Due to reported drainage, will start antibiotic/steroid eyedrops and apply warm compresses. If no improvement, could consider ophthalmology or plastics consult. Severe halitosis-treat for possible thrush. Vocal hoarseness/wheezy- COPD? Will order PRN ventolin. If no improvement, may need ENT consult as OP to evaluate halitosis and vocal changes. Labs reviewed. No evidence of infection- suspect concern due to underlying paranoia/psychosis. Chart is reviewed for collateral information. 12/14/17 Psych: Will consider changing antipsychotic to medication that is less sedating. For now, will discontinue Depakote sprinkles as level was low, patient has been refusing. Will restart Depakote ER 750mg, which was within therapeutic range at steady state. 12/15/17 Continue treatment for possible eye infection/inflammation with antibiotic/ steroid drops through 12/20. Medically stable. 12/15/17 Psych: Continue current care and monitor response now that patient is back to taking Depakote ER. Seems less sedated during the day. 12/16/17 Psych: Continue current care as patient is doing well. Will order EKG. 12/17/17 Psych: Continue current care, SW working to find safe discharge arrangements and f/u for outpatient psychiatric care. 12/18/17 Psych: Will check Depakote level, CBC, CMP on Tuesday 12/19. Have asked nursing staff to do consistent med checks after Depakote and Zyprexa as I have some concern she has not been adherent with antipsychotic. 12/21/17 Psych: Plan to d/c today to [facility]. Medical decisions should be deferred to DPOA until guardianship finalized. Trough VPA level was 48.6 on current dose of Depakote ER 750mg PO q HS. Would recommend continuing strict mouth checks with Depakote, Zyprexa and considering IM antipsychotic in the future. Resuscitation Status: Full Code Discharge Plan - Med Rec/Dispo Referrals/Follow Up: Bobbi Russo MD [Physician] - 2 Weeks (Dr. Josiah Russo will see patient on rounds at the facility for Hosp. follow-up. . [employer] (Dr. Josiah Russo) will manage Mental Health needs at this time.) Additional Instructions: Discharge Diagnosis: Schizoaffective disorder, bipolar type Neurocognitive disorder, unspecified Reasons for admission: Paranoia, Auditory/Visual Hallucinations, and "Acute Psychosis". IN CASE OF PSYCHIATRIC EMERGENCY, CONTACT GENERATIONS STAFF AT [phone] ( available 24 hrs daily) Prescriptions: New Cyanocobalamin (B-12) [Vit. B-12] 1,000 mcg PO DAILY tab Polyvinyl Alcohol/Povidone O/S [Refresh Classic] 1 drop EACH EYE PRN PRN ampul PRN Reason: PRN DRY EYES OLANZapine ODT [ZyPREXA Zydis] 20 mg PO HS 30 Days #120 tab Albuterol Neb (0.083%) [Proventil Neb (0.083%)] 2.5 mg AEROSOL Q4H PRN each PRN Reason: WHEEZE Nicotine Patch [Nicoderm] 14 mg TD DAILY patch Divalproex ER [Depakote ER] 750 mg PO HS 30 Days #90 tab Continue Vitamin E 400 unit PO DAILY Acetaminophen [Tylenol] 500 mg PO Q5H PRN tab PRN Reason: Discomfort Ibuprofen [Motrin] 400 mg PO Q4H PRN tab PRN Reason: Pain Discontinued LORazepam [Ativan] 1 mg PO Q6H PRN tab PRN Reason: Anxiety Ondansetron Inj [Zofran] 4 mg IVP Q6H PRN vial PRN Reason: Nausea &/Or Vomiting - Disposition 04 To [facility] Home/Facility - Dismissal Complete Discharge Instructions are:: Complete
== END 2017-12-21 14:00 | DRG 885 ==
LOC: GEN 16:50
PROVIDERS: ADMIT Psychiatry & Neurology Psychiatry; ATTEND Psychiatry & Neurology Psychiatry